=== PATIENT | female | born 1965 | race African-American/Black ===

== ENCOUNTER 2022-09-14 14:57 | Outpatient (AMB) | payer OTHER, SELFPAY ==
[2022-09-14 15:02] VITALS: PULSE 66; O2SAT 97; BMI 41.7
--- NOTE | 2022-09-14 15:02 | MHC.OFFVIS ---
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 The patient is a 56 year woman with worsening dyspnea symptoms. The patient states that she was in usual [facility] until at the after developing COVID she started noticing worsening respiratory symptoms. She did have a full cardiac evaluation. We will request those results at this time. In addition to that, the patient did have a pulmonary evaluation including PFTs and CT scan of the chest. Will also request those results. The patient feels like she has been getting worse. She gets short of breath even with mild activities of daily living. She has not responded to the current respiratory regimen. On examination she does have some end-expiratory wheezing on forced exhalation. In doing a brief walking oximetry the patient did desaturate down to about 94% And also had evidence of dyspnea. In addition to the dyspnea the patient also carries a diagnosis of sleep apnea. She has been on CPAP for many years. The therapy has been affecting beneficial. She does follow-up with [facility] Medicine [facility]. [facility] Medical History (Updated 09/16/22 @ 23:38 by Gatito Collins MD) Dyspnea SASHA on CPAP [id number] syndrome Wheezing Social History (Updated 09/14/22 @ 15:07 by NORA Flaherty) Patient Tobacco Use Status: Never used Tobacco Review of Systems Const Denies fever(s) ENT Reports nasal congestion Card Denies chest pain and Reports dyspnea on exertion Resp Reports cough, Reports dyspnea on exertion and Reports wheezing GI Reports no additional complaints Musc Reports no additional complaints Skin/Breast Denies rash Neuro Reports no additional complaints Psych Denies anxiety Al/Lymph Denies lymphadenopathy Aller/Immun Reports wheezing Physical Exam Vital Signs: Last Vital Signs Pulse 66 09/14/22 15:02 Pulse Ox 97 09/14/22 15:02 Oxygen Delivery Method Room Air 09/14/22 15:02 BMI result Body Mass Index 41.7 Const General: comfortable HEENT Head: Yes normocephalic Neck Neck: Yes normal visual inspection and Yes supple Chest Chest palpation & inspection: normal inspection of the chest Resp Effort & Inspection: normal respiratory effort Auscultation: wheezes expiratory wheezes (on force exhalation) and diminished lung sounds Cardio Rate: regular rate Rhythm: regular rhythm Heart sounds: S1 normal heart sound present and S2 normal heart sound present GI Palpation (GI): Soft to palpation Skin General skin exam: no rashes or lesions noted Extrem General: Yes no clubbing, cyanosis or edema Assessment & Plan Assessment & Plan (1) Wheezing: Code(s): R06.2 - Wheezing (2) SASHA on CPAP: Code(s): G47.33 - Obstructive sleep apnea (adult) (pediatric) (3) 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, unspecified (4) Dyspnea: Code(s): R06.00 - Dyspnea, unspecified Qualifiers: Dyspnea type: dyspnea on exertion Qualified Code(s): R06.09 - Other forms of dyspnea Plan Start Symbicort BID PFTs We will request her CT chest We will request her cardiology evaluation F/U 2-3 months Orders: Orders PFT pulmonary function test 09/14/22 R06.00 - Dyspnea, unspecified Medications: New budesonide-formoterol 160-4.5 mcg/actuation (Symbicort) 2 puffs inhalation BID 30 days 10.2 grams 11RF J44.9 - Chronic obstructive pulmonary disease, unspecified Coding Level of Care Code New Pt Level 4 (33039) Diagnoses Wheezing R06.2 SASHA on CPAP G47.33 Nkfr-[id number] syndrome U09.9 Dyspnea R06.09 Dyspnea type: dyspnea on exertion Time Spent (min) 40
== END 2022-09-14 15:35 | disposition home or self-care (01) ==
PROVIDERS: PCP Internal Medicine; Visit Provider Hospitalist
DX: R06.2 Wheezing (principal); G47.33 Obstructive sleep apnea (adult) (pediatric); U09.9 Post COVID-19 condition, unspecified; R06.09 Other forms of dyspnea
CPT/HCPCS: 99204

== ENCOUNTER → 2022-09-14 14:57 | Outpatient (BNVA) | payer OTHER, SELFPAY | PROVIDERS: PCP Internal Medicine; Visit Provider Hospitalist ==

== ENCOUNTER 2022-10-02 07:22 | Outpatient (REF) | payer OTHER, SELFPAY ==
--- NOTE | 2022-10-02 08:01 | PFT_ITS ---
INDICATION: Dyspnea. SPIROMETRY: FEV to FVC of 87% with an FEV1 of 1.91 L, which is 84% predicted, FVC of 2.18 L, which is 76% predicted. No significant response to bronchodilators noted. Maximum voluntary ventilation 78% predicted. LUNG VOLUMES: Total lung capacity 71% predicted with an expiratory reserve volume of 11% predicted. DIFFUSION CAPACITY: DLCO 95% predicted. COMPARISONS: None. INTERPRETATION: No obstructive ventilatory defects. No significant response to bronchodilators noted. There is a decrease in the maximum voluntary ventilation secondary to likely deconditioning, although cannot rule out neuromuscular conditions. The patient does have a restrictive ventilatory defect consistent with mild restrictive lung disease. Impart due to an elevated BMI as the expiratory reserve volume is significantly low. Diffusion capacity is within normal limits. Clinical correlation warranted. MD ELIU Laen/MODL / [id number]
== END 2022-10-02 07:23 | disposition home or self-care (01) ==
LOC: HO.RESP 07:22
PROVIDERS: PCP Internal Medicine; Visit Provider Hospitalist
DX: R06.00 Dyspnea, unspecified (principal)
CPT/HCPCS: 94010; 94727; 94729

== ENCOUNTER → 2022-10-02 08:01 | Outpatient (BNV) | payer OTHER, SELFPAY | PROVIDERS: PCP Internal Medicine; Visit Provider Hospitalist | DX: R06.09 Other forms of dyspnea (principal); G47.33 Obstructive sleep apnea (adult) (pediatric) | CPT/HCPCS: 94060; 94727; 94729 ==

== ENCOUNTER 2022-11-06 08:41 | Outpatient (AMB) | payer OTHER, SELFPAY ==
[2022-11-06 08:47] VITALS: PULSE 84; O2SAT 98; BMI 42.2
--- NOTE | 2022-11-06 08:47 | MHC.OFFVIS ---
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 The patient states that she was in usual [facility] until at the after developing COVID she started noticing worsening respiratory symptoms. She did have a full cardiac evaluation. We will request those results at this time. In addition to that, the patient did have a pulmonary evaluation including PFTs and CT scan of the chest. Will also request those results. The patient feels like she has been getting worse. She gets short of breath even with mild activities of daily living. She has not responded to the current respiratory regimen. On examination she does have some end-expiratory wheezing on forced exhalation. In doing a brief walking oximetry the patient did desaturate down to about 94% And also had evidence of dyspnea. In addition to the dyspnea the patient also carries a diagnosis of sleep apnea. She has been on CPAP for many years. The therapy has been affecting beneficial. She does follow-up with [facility]. 11/06/2022 the patient is here for a pulmonary follow-up visit. Overall the patient is doing better. She still having dyspnea on exertion but overall a little improved. She is responding well to the Symbicort. Sometimes is causing some raspiness of her voice which she does not like. She wishes to have a rescue inhaler that she can use as needed. In addition to that the patient did undergo pulmonary function studies. We did review the results. 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 She also has noted that her pre bronchodilator numbers were actually better than her post. Therefore the some degree of musculoskeletal disease or fatigability of the muscles. The patient does have a scheduled CT scan with her thoracic surgeon regarding her thymus. She denies ever been diagnosed with myasthenia gravis. In addition to this the patient did have recent breast surgery. This was benign mass that was taken care of. 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 Therefore, I do believe that starting pulmonary rehabilitation at this time with very important. [facility] Medical History (Updated 11/06/22 @ 19:47 by Gatito Collins MD) [id number] syndrome SASHA on CPAP Wheezing Dyspnea Social History (Updated 09/14/22 @ 15:07 by NOAR Flaherty) Patient Tobacco Use Status: Never used Tobacco Review of Systems Const Denies fever(s) ENT Reports nasal congestion Card Denies chest pain and Reports dyspnea on exertion Resp Denies cough and Reports dyspnea on exertion GI Reports no additional complaints Musc Reports no additional complaints Skin/Breast Denies rash Neuro Reports no additional complaints Psych Denies anxiety Al/Lymph Denies lymphadenopathy Physical Exam Vital Signs: Last Vital Signs Pulse 84 11/06/22 08:47 Pulse Ox 98 11/06/22 08:47 Oxygen Delivery Method Room Air 11/06/22 08:47 BMI result Body Mass Index 42.2 Const General: comfortable HEENT Head: Yes normocephalic Neck Neck: Yes normal visual inspection and Yes supple Chest Chest palpation & inspection: normal inspection of the chest Resp Effort & Inspection: normal respiratory effort Auscultation: no wheezes and diminished lung sounds Cardio Rate: regular rate Rhythm: regular rhythm Heart sounds: S1 normal heart sound present and S2 normal heart sound present GI Palpation (GI): Soft to palpation Skin General skin exam: no rashes or lesions noted Extrem General: Yes no clubbing, cyanosis or edema Assessment & Plan Assessment & Plan (1) Coix-[id number] syndrome: Code(s): U09.9 - Post COVID-19 condition, unspecified (2) Dyspnea: Code(s): R06.00 - Dyspnea, unspecified Qualifiers: Dyspnea type: dyspnea on exertion Qualified Code(s): R06.09 - Other forms of dyspnea (3) SASHA on CPAP: Code(s): G47.33 - Obstructive sleep apnea (adult) (pediatric) (4) Wheezing: Comment: better Code(s): R06.2 - Wheezing Plan continue Symbicort BID ALFREDO as needed CT chest [facility] Cardiology evaluation pending pulmonary rehab F/U 6 months Orders: Orders Pulmonary Rehab Today U09.9 - Post COVID-19 condition, unspecified Medications: New albuterol sulfate 90 mcg/actuation 2 inhalations inhalation Q6H 30 days PRN 18 grams 12RF shortness of breath or wheezing J44.9 - Chronic obstructive pulmonary disease, unspecified Coding Level of Care Code Est Pt Level 4 (38302) Diagnoses [id number] syndrome U09.9 Dyspnea on exertion R06.09 Dyspnea type: dyspnea on exertion SASHA on CPAP G47.33 Wheezing R06.2 Time Spent (min) 17
== END 2022-11-06 09:13 | disposition home or self-care (01) ==
PROVIDERS: PCP Internal Medicine; Visit Provider Hospitalist
DX: U09.9 Post COVID-19 condition, unspecified (principal); R06.09 Other forms of dyspnea; G47.33 Obstructive sleep apnea (adult) (pediatric); R06.2 Wheezing
CPT/HCPCS: 99214

== ENCOUNTER → 2022-11-06 08:41 | Outpatient (BNVA) | payer OTHER, SELFPAY | PROVIDERS: PCP Internal Medicine; Visit Provider Hospitalist | DX: J44.9 Chronic obstructive pulmonary disease, unspecified (principal); R06.00 Dyspnea, unspecified ==

== ENCOUNTER 2023-01-12 09:13 | Emergency (ER) | payer OTHER, SELFPAY ==
--- NOTE | ~2023-01-12 | XR_ITS ---
EXAMINATION: XR CHEST CLINICAL INFORMATION: Cough, wheezing COMPARISON: None available. TECHNIQUE: 2 views of the chest were obtained. FINDINGS: Clear lungs. No pleural effusion or pneumothorax. Enlarged cardiac silhouette. Mediastinal contours unremarkable. XR/XR chest 2V IMPRESSION: 1. No acute cardiopulmonary abnormality. 2. Enlarged cardiac silhouette may represent cardiomegaly
--- NOTE | ~2023-01-12 | CT_ITS ---
EXAMINATION: CT ANGIOGRAM OF THE CHEST WITH AND WITHOUT CONTRAST (CT PULMONARY ANGIOGRAM FOR PE) CLINICAL INFORMATION: Reason for Exam tachypnea, r/o PE COMPARISON: None available. TECHNIQUE: Prior to contrast administration, noncontrast localization images were obtained. Subsequently, multidetector volumetric imaging was performed from the thoracic inlet to below the diaphragms following the administration of 65 mL Omnipaque 350 intravenous contrast. No contrast reaction reported Sagittal, coronal, and MIP oblique sagittal reformatted images were obtained on the CT workstation, uploaded to PACS, and reviewed. This CT examination was performed using dose optimization techniques as appropriate, variously including the following: *Automated exposure control *Adjustment of mA and/or kV according to patient size (this includes techniques or standardized protocols for targeted exams where dose is matched to indication/reason for exam; i.e. extremities or head) *Use of iterative reconstruction technique Total exam dose-length product 562 mGy-cm FINDINGS: QUALITY OF STUDY/CONTRAST BOLUS: Satisfactory. PULMONARY ARTERIES: No pulmonary emboli. THORACIC AORTA: The ascending aorta measures 3.7 x 3.3 cm. There is pulsation artifact which limits assessment but no discrete dissection is seen. LUNG: Respiratory motion artifact limits assessment. No consolidation. Mild airway wall thickening. No pulmonary edema. PLEURA: No pleural effusion or pneumothorax. MEDIASTINUM: No adenopathy. No pericardial effusion. CORONARY ARTERY CALCIFICATION: None visualized on this study. CHEST WALL/AXILLA: No axillary or internal mammary lymphadenopathy. OSSEOUS STRUCTURES: No acute or suspicious osseous abnormality. UPPER ABDOMEN: Simple density cyst in the upper pole the left kidney. No follow-up imaging is recommended. CT/CT angio chest PE protocol IMPRESSION: Negative for pulmonary embolism.
[2023-01-12 09:18] VITALS: BP 143/81; PULSE 71; RESP 22; TEMP 36.6; O2SAT 97; BMI 42.0
--- NOTE | 2023-01-12 10:00 | PC.NURSE ---
patient a&ox3, speaking in full sentences, when listening to lung sounds pt expiratory coughed while listening to each lobe- rhonchi heard intermittently.
[2023-01-12 10:22] LABS: Influenza A PCR NEGATIVE (Negative); Influenza B PCR NEGATIVE (Negative); Resp Syncy Virus RNA Qual PCR NEGATIVE (Negative); SARS COV2 PCR INHOUSE NEGATIVE (Negative)
--- NOTE | 2023-01-12 11:15 | ED.URI ---
HPI - URI/Sore Throat General Chief Complaint: Upper Respiratory Symptoms Stated Complaint: trouble breathing/ cough Time Seen by Provider: 01/12/23 10:34 Source: patient Mode of arrival: ambulatory Limitations: no limitations History of Present Illness HPI Narrative: 57-year-old female with a history of hypothyroidism, obstructive sleep apnea, post COVID syndrome presents to the ER with complaints of upper respiratory symptoms for 8 days. Patient reports that last Saturday she developed sore throat, runny nose. Saturday she had a fever. The next day she developed cough, wheezing which continued through till Saturday. She spoke to her primary care on Saturday who prescribed her azithromycin. She went to urgent care on who gave her codeine cough medication and a prednisone course. She had continued symptoms and so she had outpatient chest x-ray yesterday which she tells me was normal. She spoke to her primary store loss prevention manager this morning who recommend she come into the ER for continued symptoms of cough, wheezing and shortness of breath. She denies any current fever, chest pain, leg swelling or leg pain. She does have chronic shortness of breath due to post COVID syndrome and uses Breo daily, albuterol p.r.n.. She has been using her albuterol quite frequently this week and ran out of it. Related Data Home Medications Medication Instructions Recorded Confirmed aspirin 81 mg tablet,delayed 81 mg PO DAILY 09/14/22 release cholecalciferol (vitamin D3) 125 125 mcg PO DAILY 09/14/22 mcg (5,000 unit) capsule coenzyme Q10 200 mg capsule 200 mg PO DAILY 09/14/22 cyclosporine 0.05 % eye drops in a drp ophthalmic (eye) ONCE 09/14/22 dropperette (Restasis) diclofenac sodium 75 mg 75 mg PO BID PRN 09/14/22 tablet,delayed release lactobacillus combination no.9 4 4,000 mmu cells PO DAILY 09/14/22 billion cell capsule (Adult 50 Plus Probiotic) melatonin 10 mg capsule 10 mg PO BEDTIME PRN 09/14/22 methimazole 5 mg tablet 5 mg PO DAILY 09/14/22 metoprolol tartrate 25 mg tablet 25 mg PO DAILY 09/14/22 multivitamin 1 tab PO DAILY 09/14/22 nystatin 100,000 unit/gram topical topical BID 09/14/22 powder omeprazole 20 mg capsule,delayed 20 mg PO DAILY 09/14/22 release levothyroxine 50 mcg capsule 50 mcg PO DAILY 11/06/22 Previous Rx's Medication Instructions Recorded budesonide-formoterol HFA 160 2 puff inhalation BID 30 days 09/14/22 mcg-4.5 mcg/actuation aerosol #10.2 grams inhaler (Symbicort) albuterol sulfate 90 mcg/actuation 2 inh inhalation Q6H PRN shortness 11/06/22 aerosol inhaler of breath or wheezing 30 days #18 grams fluticasone furoate 200 1 inh inhalation DAILY 30 days #60 01/06/23 mcg-vilanterol 25 mcg/dose ea inhalation powder (Breo Ellipta) methylprednisolone 4 mg tablets in 4 mg PO DAILY 6 days #21 ea 01/11/23 a dose pack (Medrol (Andrey)) codeine 10 mg-guaifenesin 100 mg/5 5 ml PO Q6H PRN cough #60 mL 01/12/23 mL oral liquid (Virtussin AC) Allergies Allergy/AdvReac Type Severity Reaction Status Date / Time fexofenadine [From Marychuy] Allergy Severe Anaphylaxis Verified 01/12/23 09:22 sulfamethoxazole Allergy Severe Rash Verified 01/12/23 09:22 [From Bactrim] trimethoprim [From Bactrim] Allergy Severe Rash Verified 01/12/23 09:22 Review of Systems Review of Systems: Yes all other systems are reviewed and are negative Constitutional: Constitutional: Reports no additional constitutional complaints, Denies body ache(s), Denies chills, Denies fever(s), Denies headache(s) and Denies weakness Eyes: Eyes: Reports no additional eye complaints and Denies change in vision ENT: Reports system reviewed and no additional complaints, except as documented, Denies dizziness, Denies headache(s), Denies nasal congestion, Denies nasal discharge and Denies neck pain Cardiovascular: Cardiovascular: Reports no additional cardiovascular complaints, Denies chest pain, Denies leg edema and Reports dyspnea Respiratory: Respiratory: Reports no additional respiratory complaints, Reports cough, Reports dyspnea and Reports wheezing Gastrointestinal: Gastrointestinal: Reports no additional gastrointestinal complaints, Denies abdominal pain, Denies diarrhea, Denies nausea and Denies vomiting Genitourinary: Genitourinary: Reports no additional female genitourinary complaints and Denies urinary incontinence Musculoskeletal: Musculoskeletal: Reports no additional musculoskeletal complaints, Denies back pain, Denies arthralgias, Denies joint swelling, Denies neck pain, Denies numbness and Denies tingling Integumentary/Breasts: Skin/Breast: Reports system reviewed and no additional complaints, except as docu and Denies rash Neurologic: Reports system reviewed and no additional complaints, except as documented, Denies Abnormal speech present, Denies dizziness, Denies headache(s), Denies numbness, Denies tingling and Denies weakness Allergic/Immunologic: Allergic/Immunologic: Reports wheezing [facility] Past Medical History Attestation statement: The following information was validated with the patient. Source: old records reviewed and nursing notes reviewed Medical History [id number] syndrome SASHA on CPAP Wheezing Dyspnea Social History Social History (Updated 09/14/22 @ 15:07 by NORA Flaherty) Patient Tobacco Use Status: Never used Tobacco Advance Directives: No Advance Directives Information Provided: No Physical Exam Vital Signs: Vital Signs: Last Vital Signs Temp 98.9 F 01/12/23 12:27 Pulse 87 01/12/23 13:48 Resp 20 01/12/23 13:48 BP 145/80 H 01/12/23 12:27 Pulse Ox 98 01/12/23 13:48 O2 Del Method Room Air 01/12/23 13:48 BMI result Body Mass Index 42.0 Const: General: cooperative, healthy appearing, comfortable and no acute distress Orientation/consciousness: patient oriented x3 Limitations: no limitations HEENT: Head: Yes normal to inspection Ears: hearing grossly normal bilaterally and TM's normal bilaterally General nose exam: Normal external nose present Face and sinus: Yes normal facial exam Mouth: Normal oral and palatal mucosa present Throat: Yes posterior oropharynx normal, Yes tonsils normal and Yes uvula midline Eyes: General: appearance normal, both eyes and all related structures Pupils: Equal, round and reactive pupils present Neck: Neck: Yes normal visual inspection, Yes full ROM, Yes no lymphadenopathy and Yes no meningeal signs Chest: Chest palpation & inspection: normal inspection of the chest Resp: Effort & Inspection: normal respiratory effort Auscultation: wheezes Cardio: Rate: regular rate Rhythm: regular rhythm Peripheral pulses: Peripheral pulses 2+ throughout GI: Inspection: Yes normal to inspection Palpation (GI): Soft to palpation and nontender Auscultation: normal bowel sounds Back/Spine/Pelvis: Thoracic/Lumbar Spine: thoracic and lumbar spine normal to inspection Skin: General skin exam: no rashes or lesions noted Neuro: General: patient oriented x3, no meningeal signs, no focal motor deficits and normal sensation to monofilament Cranial nerves: Yes Equal, round and reactive pupils present Cognition (Neuro): normal cognition Speech: No Abnormal speech present Gait exam (Neuro): Normal gait present Motor exam (neuro): 5/5 motor strength present throughout Extrem: General: Yes normal to inspection, Yes no pedal edema and Yes no calf tenderness Course Course Course Narrative: 1230-Continued wheezing and cough. Will repeat nebulizer/codeine w/ robitussin Reevaluation(s) Reevaluation #1: 1420-tachypnic with minimal exertion with rates 20's. Will obtain CTA to r/o PE after patient discussion and agreement with plan of care Will obtain EKG, troponin Reevaluation #2: CTA negative for PE. likely viral syndrome in combination was patient's long-haul COVID symptoms. patient's saturations are stable. She has have some mild tachypnea with exertion. we did perform an ambulatory oxygen saturation with oxygen saturations greater than 95% with moving around. Patient is on a prednisone course at home as well as azithromycin. I recommended she continue this as well as her albuterol as needed. We will give her some cough suppressants for home. Reviewed worrisome signs and symptoms of when to return to the emergency room. Comfortable plan for discharge home. Medications Administered Discontinued Medications Generic Name Dose Route Start Last Admin Trade Name Ryanq PRN Reason Stop Dose Admin Albuterol Sulfate 2.5 mg/ 5 mg 01/12/23 12:40 01/12/23 13:08 Albuterol Sulfate 2.5 mg INHALE 01/12/23 12:41 5 mg ONCE ONE Administration Albuterol/Ipratropium 3 ml 01/12/23 11:43 01/12/23 11:44 Albuterol/Iprat 2.5/0.5mg 3 Ml Ampul.Neb INHALE 01/12/23 11:44 3 ml ONCE ONE Administration Guaifenesin/Codeine Phosphate 10 ml 01/12/23 12:40 01/12/23 12:46 Guaifen/Codeine Sf 200/20/10ml 10 Ml Liquid PO 01/12/23 12:41 10 ml ONCE ONE Administration Magnesium Sulfate 2 gm in 50 mls @ 25 mls/hr 01/12/23 11:06 01/12/23 11:51 Magnesium Sulfate/H2o IV 01/12/23 13:05 Infused ONCE ONE Infusion Sodium Chloride 1,000 mls @ 999 mls/hr 01/12/23 11:07 01/12/23 13:48 Ns IV 01/12/23 12:07 Infused .Q1H1M STA Infusion Methylprednisolone Sodium Succinate 125 mg 01/12/23 11:06 01/12/23 11:36 Methylprednisolone Sod Succ 125 Mg/2 Ml Vial IVPUSH 01/12/23 11:07 125 mg ONCE ONE Administration Medical Decision Making Medical Decision Making [facility] Narrative: 57-year-old female with a history of hypothyroidism, obstructive sleep apnea, post COVID syndrome presents to the ER with complaints of upper respiratory symptoms for 8 days. Patient reports that last Saturday she developed sore throat, runny nose. Saturday she had a fever. The next day she developed cough, wheezing which continued through till Saturday. She spoke to her primary care on Saturday who prescribed her azithromycin. She went to urgent care on who gave her codeine cough medication and a prednisone course. She had continued symptoms and so she had outpatient chest x-ray yesterday which she tells me was normal. She spoke to her primary store loss prevention manager this morning who recommend she come into the ER for continued symptoms of cough, wheezing and shortness of breath. She denies any current fever, chest pain, leg swelling or leg pain. She does have chronic shortness of breath due to post COVID syndrome and uses Breo daily, albuterol p.r.n.. She has been using her albuterol quite frequently this week and ran out of it. +wheezing throughout Exam otherwise benign will obtain labs, CXR, viral testing Will give nebulizer, solumedrol/magnesium IV Differential Diagnosis Differential Diagnoses: The differential diagnosis associated with the presentation includes viral syndrome, PNA, PE Admission/Observation Consideration of admission/observation: Escalation of care including admission/observation considered No hypoxia or tachypnea requiring supplemental oxygen for further management inpatient Lab Data [facility] Lab Attestation statement: I reviewed the patient's lab results. 01/12/23 11:20 01/12/23 11:19 Labs: Lab Results 01/12/23 01/12/23 01/12/23 Range/Units 09:25 11:19 11:20 WBC 6.3 (4.8-10.8) X10*3/uL RBC 4.92 (4.20-5.50) X10*6/uL Hgb 13.0 (12.0-16.0) g/dl Hct 41.4 (37.0-47.0) % MCV 84.1 (80.0-98.0) fL MCH 26.4 L (27.0-33.0) pg MCHC 31.4 (31.0-35.0) g/dl RDW 14.6 (11.0-16.0) % Plt Count 198 (160-400) X10*3/uL MPV 9.6 (9.4-12.3) fL Immature Gran % (Auto) Cancelled Neut % (Auto) Cancelled Lymph % (Auto) Cancelled [place] % (Auto) Cancelled Eos % (Auto) Cancelled Baso % (Auto) Cancelled Lymph # (Auto) Cancelled [place] # (Auto) Cancelled Eos # (Auto) Cancelled Baso # (Auto) Cancelled Abs Immat Gran (auto) Cancelled Absolute Neuts (auto) Cancelled Absolute Nucleated RBC 0.000 (0.0-0.012) X10*3/uL Nucleated RBC % (auto) 0.0 (0.0-0.2) /100WBC Neutrophils % (Manual) 29 L (45-73) % Band Neutrophils % 0 L (3-5) % Lymphocytes % (Manual) 56 H (20-40) % Atypical Lymphs % (Man) 3 (0-6) % Monocytes % (Manual) 7 (2-11) % Eosinophils % (Manual) 3 (0-4) % Basophils % (Manual) 2 (0-2) % Abs Neuts (Manual) 1.8 L (2.0-8.3) X10*3/uL Lymphocytes # (Manual) 3.5 (1.2-4.9) X10*3/uL Atyp Lymphs # (Manual) 0.2 x10*3/uL Monocytes # (Manual) 0.4 (0.1-1.2) X10*3/uL Eosinophils # (Manual) 0.2 (0.0-0.4) X10*3/uL Basophils # (Manual) 0.1 (0.0-0.2) X10*3/uL Platelet Estimate NORMAL (NORMAL) Plt Morphology Comment NORMAL RBC Morphology NORMAL PT 12.7 (11.1-13.3) SEC INR 1.0 (0.9-1.1) Sodium 143 (135-145) mmol/L Potassium 3.5 (3.3-5.1) mmol/L Chloride 108 (96-108) mmol/L Carbon Dioxide 27 (22-29) mmol/L Anion Gap 12 (12-20) BUN 9 (9-16) mg/dL Creatinine 0.71 (0.5-1.4) mg/dL Estim Creat Clear Calc 129.0 Estimated GFR > 60 Random Glucose 92 (60-115) mg/dL Calcium 9.7 (8.4-10.2) mg/dL Troponin I High Sens < 2.7 (<3.5-17.0) ng/L Influenza Type A (PCR) NEGATIVE (Negative) Influenza Type B (PCR) NEGATIVE (Negative) RSV RNA Qual (PCR) NEGATIVE (Negative) SARS-CoV-2 RNA (RT-PCR) NEGATIVE (Negative) Independent Interpretation I performed an independent interpretation of an: Plain X-Ray and CT Scan Interpretation: I independently reviewed the x-ray/CTA and agree with Radiology report I independetely reviewed the EKG which shows normal sinus rhythm with a rate of 77, normal [place], QRS, normal QT, nonspecific ST changes leads 3 Radiology Impression Discussion of test interpretation with radiology: I have reviewed the radiologist's reading. Radiologist Impression: [address] [address] XRay Report Signed Patient: Sasha Hess MR#: [id number] : 1965 Acct:[id number] Age/Sex: 57 / F ADM Date: 01/12/23 Loc: .ED Attending Dr: Ordering Physician: Brenna Limon NP Date of Service: 01/12/23 Procedure(s): XR chest 2V Accession Number(s): [id number] cc: Victor Hugo Zuniga; Brenna Limon NP~ EXAMINATION: XR CHEST CLINICAL INFORMATION: Cough, wheezing COMPARISON: None available. TECHNIQUE: 2 views of the chest were obtained. FINDINGS: Clear lungs. No pleural effusion or pneumothorax. Enlarged cardiac silhouette. Mediastinal contours unremarkable. XR/XR chest 2V IMPRESSION: 1. No acute cardiopulmonary abnormality. 2. Enlarged cardiac silhouette may represent cardiomegaly [address] [address] [address] Scan Report Signed Patient: Sasha Hess MR#: [id number] : 1965 Acct:[id number] Age/Sex: 57 / F ADM Date: 01/12/23 Loc: .ED Attending Dr: Ordering Physician: Brenna Limon NP Date of Service: 01/12/23 Procedure(s): CT angio chest PE protocol Accession Number(s): [id number] cc: Victor Hugo Zuniga; Brenna Limon NP~ EXAMINATION: CT ANGIOGRAM OF THE CHEST WITH AND WITHOUT CONTRAST (CT PULMONARY ANGIOGRAM FOR PE) CLINICAL INFORMATION: Reason for Exam tachypnea, r/o PE COMPARISON: None available. TECHNIQUE: Prior to contrast administration, noncontrast localization images were obtained. Subsequently, multidetector volumetric imaging was performed from the thoracic inlet to below the diaphragms following the administration of 65 mL Omnipaque 350 intravenous contrast. No contrast reaction reported Sagittal, coronal, and MIP oblique sagittal reformatted images were obtained on the CT workstation, uploaded to PACS, and reviewed. This CT examination was performed using dose optimization techniques as appropriate, variously including the following: *Automated exposure control *Adjustment of mA and/or kV according to patient size (this includes techniques or standardized protocols for targeted exams where dose is matched to indication/reason for exam; i.e. extremities or head) *Use of iterative reconstruction technique Total exam dose-length product 562 mGy-cm FINDINGS: QUALITY OF STUDY/CONTRAST BOLUS: Satisfactory. PULMONARY ARTERIES: No pulmonary emboli. THORACIC AORTA: The ascending aorta measures 3.7 x 3.3 cm. There is pulsation artifact which limits assessment but no discrete dissection is seen. LUNG: Respiratory motion artifact limits assessment. No consolidation. Mild airway wall thickening. No pulmonary edema. PLEURA: No pleural effusion or pneumothorax. MEDIASTINUM: No adenopathy. No pericardial effusion. CORONARY ARTERY CALCIFICATION: None visualized on this study. CHEST WALL/AXILLA: No axillary or internal mammary lymphadenopathy. OSSEOUS STRUCTURES: No acute or suspicious osseous abnormality. UPPER ABDOMEN: Simple density cyst in the upper pole the left kidney. No follow-up imaging is recommended. CT/CT angio chest PE protocol IMPRESSION: Negative for pulmonary embolism. Prescription Management I considered prescription management with: Antibiotic Discharge Plan Discharge Clinical Impression: Bronchitis Patient Disposition: Home, Self-Care Instructions: Acute Bronchitis (ED) Additional Instructions: resume your prednisone tomorrow You may continue your antibiotic Use your albuterol 2 puffs every 4 hours as needed for cough or wheezing Follow-up with primary care doctor as discussed Prescriptions: New codeine-guaifenesin [Virtussin AC] 10-100 mg/5 mL liquid 5 ml PO Q6H PRN (Reason: cough) Qty: 60 0RF No Action fluticasone furoate-vilanterol [Breo Ellipta] 200-25 mcg/dose blister with device 1 inh inhalation DAILY 30 Days Qty: 60 11RF methylprednisolone [Medrol (Andrey)] 4 mg tablets,dose pack 4 mg PO DAILY 6 Days Qty: 21 0RF cyclosporine [Restasis] 0.05 % dropperette ophthalmic (eye) ONCE metoprolol tartrate 25 mg tablet 25 mg PO DAILY diclofenac sodium 75 mg tablet,delayed release (DR/EC) 75 mg PO BID PRN nystatin 100,000 unit/gram powder topical BID aspirin 81 mg tablet,delayed release (DR/EC) 81 mg PO DAILY cholecalciferol (vitamin D3) 125 mcg (5,000 unit) capsule 125 mcg PO DAILY Adult 50 Plus Probiotic 4 billion cell capsule 4,000 mmu cells PO DAILY Rx Instructions: administer with a meal omeprazole 20 mg capsule,delayed release(DR/EC) 20 mg PO DAILY multivitamin Tablet 1 tab PO DAILY coenzyme Q10 200 mg capsule 200 mg PO DAILY melatonin 10 mg capsule 10 mg PO BEDTIME PRN methimazole 5 mg tablet 5 mg PO DAILY budesonide-formoterol [Symbicort] 160-4.5 mcg/actuation HFA aerosol inhaler 2 puff inhalation BID 30 Days Qty: 10.2 11RF levothyroxine 50 mcg capsule 50 mcg PO DAILY albuterol sulfate 90 mcg/actuation HFA aerosol inhaler 2 inh inhalation Q6H PRN (Reason: shortness of breath or wheezing) 30 Days Qty: 18 12RF Referrals: Rodney Michaels MD [Emergency Provider] - 1 week Victor Hugo Zuniga MD [Primary Care Provider] -
--- NOTE | 2023-01-12 11:24 | PC.NURSE ---
20G Iv placed lbs obtained
[2023-01-12 11:25] LABS: Hematocrit 41.4 % (37.0-47.0); Mean Corpuscular HGB Conc 31.4 g/dl (31.0-35.0); Mean Corpuscular Hemoglobin 26.4 pg (27.0-33.0); Mean Corpuscular Volume 84.1 fL (80.0-98.0); Mean Platelet Volume 9.6 fL (9.4-12.3); Platelet Count 198 X10*3/uL (160-400); Red Blood Count 4.92 X10*6/uL (4.20-5.50); Red Cell Distribution Width 14.6 % (11.0-16.0); White Blood Count 6.3 X10*3/uL (4.8-10.8)
[2023-01-12 11:31] LABS: Prothrombin Time 12.7 SEC (11.1-13.3)
[2023-01-12] MEDS: 0.9 % Sodium Chloride 1,000 ML 999 ML IV (11:35)
[2023-01-12] MEDS: Magnesium Sulfate/H2O 2 GM/50 ML PIGGYBACK IV (11:36)
[2023-01-12] MEDS: methylPREDNISolone Sod Succ 125 MG/2 ML VIAL IVPUSH (11:36)
[2023-01-12 11:39] LABS: Anion Gap 12 (12-20); Blood Urea Nitrogen 9 mg/dL (9-16); Calcium 9.7 mg/dL (8.4-10.2); Carbon Dioxide 27 mmol/L (22-29); Chloride 108 mmol/L (96-108); Estimated Glomerular Filt Rate > 60; Glucose Random 92 mg/dL (60-115); Potassium 3.5 mmol/L (3.3-5.1); Sodium 143 mmol/L (135-145)
[2023-01-12] MEDS: Albuterol/Iprat 2.5/0.5MG 3 ML AMPUL.NEB INHALE (11:44)
[2023-01-12 11:46] VITALS: PULSE 59; RESP 16; O2SAT 97
--- NOTE | 2023-01-12 11:47 | PC.NURSE ---
pt moved to [facility] as pt has hx of tachycardia, controlled with medication, pt was changed into hospital attire, and supervisor customer complaint service was applied. NSR on monitor rate 64bpm filter in place as pt has hx of PFO. respiratory as bedside, XR taken
[2023-01-12 11:59] LABS: Atypical Lymph Absolute Manual 0.2 x10*3/uL; Atypical Lymphs Percent Manual 3 % (0-6); Band Neutrophils Percent 0 % (3-5); Basophils Abs Manual 0.1 X10*3/uL (0.0-0.2); Basophils Percent Manual 2 % (0-2); Eosinophils Absolute Manual 0.2 X10*3/uL (0.0-0.4); Eosinophils Percent Manual 3 % (0-4); Lymphocytes Absolute Manual 3.5 X10*3/uL (1.2-4.9); Lymphocytes Percent Manual 56 % (20-40); Monocytes Absolute Manual 0.4 X10*3/uL (0.1-1.2); Monocytes Percent Manual 7 % (2-11); Neutrophils Absolute Manual 1.8 X10*3/uL (2.0-8.3); Neutrophils Percent Manual 29 % (45-73)
[2023-01-12 12:02] LABS: Platelet Estimate NORMAL (NORMAL); Platelet Morphology Comment NORMAL; RBC Morphology NORMAL
[2023-01-12 12:27] VITALS: BP 145/80; PULSE 67; RESP 20; TEMP 37.2; O2SAT 97
--- NOTE | 2023-01-12 12:28 | PC.NURSE ---
patient a&ox3, lungs diminished throughout, sporatic rhonchi and cough with exhailing, pt states she still feels the same despite medications that were administered. 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
--- NOTE | 2023-01-12 12:31 | PC.NURSE ---
after ambulation back from bathroom, patients respiratory rate had increased to 26 her O2 sat remained wnl at 97%, HR was nsr 70s. pt was noted to be dyspnic and speaking in shorter sentences which is a change from her initial ambulation to the bathroom. will notify provider of this as well.
[2023-01-12 12:33] VITALS: PULSE 70; RESP 26; O2SAT 97
[2023-01-12] MEDS: guaiFEN/Codeine SF 200/20/10ML 10 ML LIQUID PO (12:46)
--- NOTE | 2023-01-12 12:46 | PC.NURSE ---
pt medicated for cough per order
--- NOTE | 2023-01-12 12:49 | PC.NURSE ---
respiratory called for updraft
[2023-01-12] MEDS: Albuterol Sulfate 2.5 MG, Albuterol Sulfate (0.083%) 2.5 MG 5 MG INHALE (13:08)
[2023-01-12 13:10] VITALS: PULSE 65; RESP 20; O2SAT 97
[2023-01-12 13:48] VITALS: PULSE 87; RESP 20; O2SAT 98
--- NOTE | 2023-01-12 14:14 | PC.NURSE ---
ambulated with patient [facility] de[facility] sp02 98-95 on RA HR 87-102bpm
--- NOTE | 2023-01-12 14:23 | ECG_ITS ---
Test Reason : SOB Blood Pressure : / mmHG Vent. Rate : 077 BPM Atrial Rate : 077 BPM P-R Int : 158 ms QRS Dur : 100 ms QT Int : 370 ms P-R-T Axes : 043 -19 -33 degrees QTc Int : 418 ms Normal sinus rhythm Moderate voltage criteria for LVH, may be normal variant ( R in aVL , [place] product ) Nonspecific ST and T wave abnormality Abnormal ECG No previous ECGs available Referred By: Brenna Palmer Electronically Signed By:MICKIE CHRISTY MD
[2023-01-12 15:28] LABS: Troponin-I High Sensitivity < 2.7 ng/L (<3.5-17.0)
== END 2023-01-12 17:11 | disposition home or self-care (01) ==
PROVIDERS: Nurse Practitioner Family; Emergency Provider Emergency Medicine; PCP Internal Medicine
DX: J40 Bronchitis, not specified as acute or chronic (principal); Z20.822 Contact with and (suspected) exposure to COVID-19; Z20.828 Contact with and (suspected) exposure to other viral communicable diseases; R06.02 Shortness of breath
CPT/HCPCS: 0241U; 36415; 71046; 71275; 80048; 84484; 85007; 85027; 85610; 93005; 94640; 96361; 96374; 96375; 99284; 99285; J2930; J3475

== ENCOUNTER → 2023-01-12 14:23 | Outpatient (BNV) | payer OTHER, SELFPAY | PROVIDERS: Emergency Provider Emergency Medicine; PCP Internal Medicine; Visit Provider Internal Medicine Cardiovascular Disease | DX: R94.31 Abnormal electrocardiogram [ECG] [EKG] (principal) | CPT/HCPCS: 93010 ==

== ENCOUNTER 2023-01-18 10:17 | Outpatient (AMB) | payer OTHER, SELFPAY ==
[2023-01-18 10:23] VITALS: BP 110/72; PULSE 73; O2SAT 97; BMI 41.9
--- NOTE | 2023-01-18 10:23 | A.OFFVIS_ITS ---
Intake Vital Signs 01/18/23 10:23 Height 5 ft 9 in Weight 284 lb BMI 41.9 BP 110/72 Blood Pressure Location Lt brachial Position Sitting Pulse 73 Pulse Source Pulse Oximeter Pulse Oximetry (%) 97 Oxygen Delivery Method Room Air Intake Visit Reasons: ER follow up Intake Note: pt is here for follow up from ER here at , she is not close to being at her baseline, still coughing and some shortness of breath wit exertion, more breathing in, also saw pcp on Saturday added more prednisone and nebulizer with albuterol. 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 The patient states that she was in usual state health until at the after developing COVID she started noticing worsening respiratory symptoms. She did have a full cardiac evaluation. We will request those results at this time. In addition to that, the patient did have a pulmonary evaluation including PFTs and CT scan of the chest. Will also request those results. The patient feels like she has been getting worse. She gets short of breath even with mild activities of daily living. She has not responded to the current respiratory regimen. On examination she does have some end-expiratory wheezing on forced exhalation. In doing a brief walking oximetry the patient did desaturate down to about 94% And also had evidence of dyspnea. In addition to the dyspnea the patient also carries a diagnosis of sleep apnea. She has been on CPAP for many years. The therapy has been affecting beneficial. She does follow-up with [facility]. 11/06/2022 the patient is here for a pulm onary follow-up visit. Overall the patient is doing better. She still having dyspnea on exertion but overall a little improved. She is responding well to the Symbicort. Sometimes is causing some raspiness of her voice which she does not like. She wishes to have a rescue inhaler that she can use as needed. In addition to that the patient did undergo pulmonary function studies. We did review the results. 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 She also has noted that her pre bronchodilator numbers were actually better than her post. Therefore the some degree of musculoskeletal disease or fatigability of the muscles. The patient does have a scheduled CT scan with her thoracic surgeon regarding her thymus. She denies ever been diagnosed with myasthenia gravis. In addition to this the patient did have recent breast surgery. This was benign mass that was taken care of. 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 Therefore, I do believe that starting pulmonary rehabilitation at this time with very important. 01/18/2023 the patient is here for a sick visit. Apparently she was exposed to sick contacts sometime Thanksgiving. After she developed fever and worsening cough. Subsequently after that her asthma became very active with having significant chest tightness and wheezing. She went to an urgent care and was given prednisone. She was also given a Z-Andrey. The patient is no better and she did follow-up with primary care doctor also provide her additional steroids. Ultimately the patient still not improve and she decided to come into the ER. In the ER the patient did have blood work in addition to swap. Negative for RSV. COVID and flow. Although this is about a week after symptoms started so the therefore explained to her that is less likely to become positive at this point. The patient had a CTA as well which I personally reviewed. No evidence of any active pulmonary disease. The airways look intact. Some mosaic pattern suggesting air trapping. She also has an incidental finding of a simple says some left kidney. In the office she did have significant coughing nonproductive although at times it can be productive for her with yellowish phlegm. She was given 2 DuoNeb treatments any improved her wheezing and her cough significantly. The patient will start a course of doxycycline. She will complete the prednisone and she will also switch her Breo over to breztri. Apparently she had responded well to the Symbicort but then because of insurance issues with switched over to Breo and she does not find Breo working well for her. She also is irritated by the powder. [facility] Medical History (Updated 01/18/23 @ 13:00 by Gatito Collins MD) Asthma [id number] syndrome SASHA on CPAP Wheezing Dyspnea Social History Patient Tobacco Use Status: Never used Tobacco Review of Systems Const Reports difficulty sleeping, Denies fever(s) and Reports malaise ENT Reports nasal congestion Card Denies chest pain and Reports dyspnea on exertion Resp Reports chest congestion, Reports cough, Reports dyspnea on exertion and Reports wheezing GI Reports no additional complaints Musc Reports no additional complaints Skin/Breast Denies rash Neuro Reports no additional complaints Psych Denies anxiety Al/Lymph Denies lymphadenopathy Aller/Immun Reports wheezing Physical Exam Vital Signs: Last Vital Signs Pulse 73 01/18/23 10:23 BP 110/72 01/18/23 10:23 Pulse Ox 97 01/18/23 10:23 Oxygen Delivery Method Room Air 01/18/23 10:23 BMI result Body Mass Index 41.9 Const General: comfortable HEENT Head: Yes normocephalic Neck Neck: Yes normal visual inspection and Yes supple Chest Chest palpation & inspection: normal inspection of the chest Resp Effort & Inspection: normal respiratory effort, Actively coughing Quality: actively coughing and prolonged expiratory phase Auscultation: no rales, no rhonchi, wheezes and diminished lung sounds Cardio Rate: regular rate Rhythm: regular rhythm Heart sounds: S1 normal heart sound present and S2 normal heart sound present GI Palpation (GI): Soft to palpation Skin General skin exam: no rashes or lesions noted Extrem General: Yes no clubbing, cyanosis or edema Assessment & Plan Assessment & Plan (1) [id number] syndrome: Code(s): U09.9 - Post COVID-19 condition, unspecified (2) Dyspnea: Code(s): R06.00 - Dyspnea, unspecified Qualifiers: Dyspnea type: dyspnea on exertion Qualified Code(s): R06.09 - Other forms of dyspnea (3) SASHA on CPAP: Code(s): G47.33 - Obstructive sleep apnea (adult) (pediatric) (4) Wheezing: Comment: better Code(s): R06.2 - Wheezing (5) Asthma: Code(s): J45.909 - Unspecified asthma, uncomplicated Qualifiers: Asthma severity: moderate Asthma persistence: persistent Asthma complication type: with acute exacerbation Qualified Code(s): J45.41 - Moderate persistent asthma with (acute) exacerbation Plan stop Symbicort BID/breo start Breztri BID ALFREDO as needed start Doxycycline continue nebulizer 2-4 times a day prednisone taper pulmonary rehab F/U 2-3 weeks Medications: New butfqhmeps-xyqsxlzq-zhvpktjtzb 160-9-4.8 mcg/actuation (Breztri Aerosphere) 2 inhalations inhalation BID 10.7 grams 5RF doxycycline hyclate 100 mg PO BID 10 days 20 caps 0RF Coding Level of Care Code Est Pt Level 4 (64125) Diagnoses [id number] syndrome U09.9 Dyspnea on exertion R06.09 Dyspnea type: dyspnea on exertion SASHA on CPAP G47.33 Wheezing R06.2 Moderate persistent asthma with acute exacerbation J45.41 Asthma severity: moderate Asthma persistence: persistent Asthma complication type: with acute exacerbation Time Spent (min) 16
== END 2023-01-18 11:00 | disposition home or self-care (01) ==
PROVIDERS: PCP Internal Medicine; Visit Provider Hospitalist
DX: U09.9 Post COVID-19 condition, unspecified (principal); R06.09 Other forms of dyspnea; G47.33 Obstructive sleep apnea (adult) (pediatric); R06.2 Wheezing; J45.41 Moderate persistent asthma with (acute) exacerbation
CPT/HCPCS: 99214

== ENCOUNTER → 2023-01-18 10:17 | Outpatient (BNVA) | payer OTHER, SELFPAY | PROVIDERS: PCP Internal Medicine; Visit Provider Hospitalist | DX: U09.9 Post COVID-19 condition, unspecified (principal); R06.09 Other forms of dyspnea; J45.41 Moderate persistent asthma with (acute) exacerbation; G47.33 Obstructive sleep apnea (adult) (pediatric) ==

== ENCOUNTER 2023-02-06 09:37 | Outpatient (AMB) | payer OTHER, SELFPAY ==
[2023-02-06 09:41] VITALS: PULSE 72; O2SAT 96; BMI 42.1
--- NOTE | 2023-02-06 09:41 | MHC.OFFVIS ---
Intake Vital Signs 02/06/23 09:41 Height 5 ft 9 in Weight 285 lb BMI 42.1 Pulse 72 Pulse Source Pulse Oximeter Pulse Oximetry (%) 96 Oxygen Delivery Method Room Air Intake Visit Reasons: ER follow up Medical Insurance Coding Specialist Required: No Allergies fexofenadine [From Marychuy] Allergy (Severe, Verified 02/06/23 09:42) Anaphylaxis sulfamethoxazole [From Bactrim] Allergy (Severe, Verified 02/06/23 09:42) Rash trimethoprim [From Bactrim] Allergy (Severe, Verified 02/06/23 09:42) Rash HPI HPI Comments History of Present Illness Details The patient is a 57 year woman with worsening dyspnea symptoms. The patient states that she was in usual state health until at the after developing COVID she started noticing worsening respiratory symptoms. She did have a full cardiac evaluation. We will request those results at this time. In addition to that, the patient did have a pulmonary evaluation including PFTs and CT scan of the chest. Will also request those results. The patient feels like she has been getting worse. She gets short of breath even with mild activities of daily living. She has not responded to the current respiratory regimen. On examination she does have some end-expiratory wheezing on forced exhalation. In doing a brief walking oximetry the patient did desaturate down to about 94% And also had evidence of dyspnea. In addition to the dyspnea the patient also carries a diagnosis of sleep apnea. She has been on CPAP for many years. The therapy has been affecting beneficial. She does follow-up with [facility]. 11/06/2022 the patient is here for a pulmonary follow-up visit. Overall the patient is doing better. She still having dyspnea on exertion but overall a little improved. She is responding well to the Symbicort. Sometimes is causing some raspiness of her voice which she does not like. She wishes to have a rescue inhaler that she can use as needed. In addition to that the patient did undergo pulmonary function studies. We did review the results. 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 She also has noted that her pre bronchodilator numbers were actually better than her post. Therefore the some degree of musculoskeletal disease or fatigability of the muscles. The patient does have a scheduled CT scan with her thoracic surgeon regarding her thymus. She denies ever been diagnosed with myasthenia gravis. In addition to this the patient did have recent breast surgery. This was benign mass that was taken care of. 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 Therefore, I do believe that starting pulmonary rehabilitation at this time with very important. 01/18/2023 the patient is here for a sick visit. Apparently she was exposed to sick contacts sometime Thanksgiving. After she developed fever and worsening cough. Subsequently after that her asthma became very active with having significant chest tightness and wheezing. She went to an urgent care and was given prednisone. She was also given a Z-Andrey. The patient is no better and she did follow-up with primary care doctor also provide her additional steroids. Ultimately the patient still not improve and she decided to come into the ER. In the ER the patient did have blood work in addition to swap. Negative for RSV. COVID and flow. Although this is about a week after symptoms started so the therefore explained to her that is less likely to become positive at this point. The patient had a CTA as well which I personally reviewed. No evidence of any active pulmonary disease. The airways look intact. Some mosaic pattern suggesting air trapping. She also has an incidental finding of a simple says some left kidney. In the office she did have significant coughing nonproductive although at times it can be productive for her with yellowish phlegm. She was given 2 DuoNeb treatments any improved her wheezing and her cough significantly. The patient will start a course of doxycycline. She will complete the prednisone and she will also switch her Breo over to breztri. Apparently she had responded well to the Symbicort but then because of insurance issues with switched over to Breo and she does not find Breo working well for her. She also is irritated by the powder. 02/06/2023 the patient is finally feeling better. She completed the antibiotics and also had been using nebulizer several times a day. She did respond better to the DuoNeb as opposed to the albuterol. Denied any adverse effects from that. She did not require the additional prednisone which is reassuring. She is back to her baseline. She is using the Breztri inhaler. She has noticing a little hoarseness. Since she is doing better she can decrease the amount of the medication to 1 puff twice a day to see if this improves her hoarseness. The patient is ready to go back to pulmonary rehabilitation. In the office we did fill out her FMLA papers and also provide her with a letter to go back to pulmonary rehabilitation without any restrictions. [facility] Medical History (Updated 02/06/23 @ 17:19 by Gatito Collins MD) Asthma Lwac-[id number]-48 syndrome SASHA on CPAP Wheezing Dyspnea Social History Patient Tobacco Use Status: Never used Tobacco Review of Systems Const Denies difficulty sleeping, Denies fever(s) and Denies malaise ENT Reports hoarseness and Reports nasal congestion Card Denies chest pain and Denies dyspnea on exertion Resp Denies chest congestion, Reports cough, Denies dyspnea on exertion and Denies wheezing GI Reports no additional complaints Musc Reports no additional complaints Skin/Breast Denies rash Neuro Reports no additional complaints Psych Denies anxiety Al/Lymph Denies lymphadenopathy Aller/Immun Denies wheezing Physical Exam Vital Signs: Last Vital Signs Pulse 72 02/06/23 09:41 Pulse Ox 96 02/06/23 09:41 Oxygen Delivery Method Room Air 02/06/23 09:41 BMI result Body Mass Index 42.1 Const General: comfortable HEENT Head: Yes normocephalic Neck Neck: Yes normal visual inspection and Yes supple Chest Chest palpation & inspection: normal inspection of the chest Resp Effort & Inspection: normal respiratory effort, no cough and No prolonged expiratory phase Auscultation: clear to auscultation bilaterally, no rales, no rhonchi and no wheezes Cardio Rate: regular rate Rhythm: regular rhythm Heart sounds: S1 normal heart sound present and S2 normal heart sound present GI Palpation (GI): Soft to palpation Skin General skin exam: no rashes or lesions noted Extrem General: Yes no clubbing, cyanosis or edema Assessment & Plan Assessment & Plan (1) Yqyh-[id number]-10 syndrome: Code(s): U09.9 - Post COVID-19 condition, unspecified (2) Dyspnea: Code(s): R06.00 - Dyspnea, unspecified Qualifiers: Dyspnea type: dyspnea on exertion Qualified Code(s): R06.09 - Other forms of dyspnea (3) SASHA on CPAP: Code(s): G47.33 - Obstructive sleep apnea (adult) (pediatric) (4) Asthma: Code(s): J45.909 - Unspecified asthma, uncomplicated Qualifiers: Asthma complication type: uncomplicated Asthma persistence: persistent Asthma severity: moderate Qualified Code(s): J45.40 - Moderate persistent asthma, uncomplicated Plan continue Breztri BID, ok to decrease 1 puff BID ALFREDO as needed continue nebulizer 2-4 times a day as needed ok to return pulmonary rehab F/U 4-6 months Coding Level of Care Code Est Pt Level 4 (35960) Diagnoses Jgzi-ZULWT-58 syndrome U09.9 Dyspnea on exertion R06.09 Dyspnea type: dyspnea on exertion SASHA on CPAP G47.33 Moderate persistent asthma without complication J45.40 Asthma complication type: uncomplicated Asthma persistence: persistent Asthma severity: moderate Time Spent (min) 16
== END 2023-02-06 10:07 | disposition home or self-care (01) ==
PROVIDERS: PCP Internal Medicine; Visit Provider Hospitalist
DX: U09.9 Post COVID-19 condition, unspecified (principal); R06.09 Other forms of dyspnea; G47.33 Obstructive sleep apnea (adult) (pediatric); J45.40 Moderate persistent asthma, uncomplicated
CPT/HCPCS: 99214

== ENCOUNTER → 2023-02-06 09:37 | Outpatient (BNVA) | payer OTHER, SELFPAY | PROVIDERS: PCP Internal Medicine; Visit Provider Hospitalist ==

== ENCOUNTER 2023-05-07 08:20 | Outpatient (AMB) | payer OTHER, SELFPAY ==
--- NOTE | 2023-05-07 08:30 | MHC.OFFVIS ---
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 The patient states that she was in usual state health until at the after developing COVID she started noticing worsening respiratory symptoms. She did have a full cardiac evaluation. We will request those results at this time. In addition to that, the patient did have a pulmonary evaluation including PFTs and CT scan of the chest. Will also request those results. The patient feels like she has been getting worse. She gets short of breath even with mild activities of daily living. She has not responded to the current respiratory regimen. On examination she does have some end-expiratory wheezing on forced exhalation. In doing a brief walking oximetry the patient did desaturate down to about 94% And also had evidence of dyspnea. In addition to the dyspnea the patient also carries a diagnosis of sleep apnea. She has been on CPAP for many years. The therapy has been affecting beneficial. She does follow-up with [facility]. 11/06/2022 the patient is here for a pulmonary follow-up visit. Overall the patient is doing better. She still having dyspnea on exertion but overall a little improved. She is responding well to the Symbicort. Sometimes is causing some raspiness of her voice which she does not like. She wishes to have a rescue inhaler that she can use as needed. In addition to that the patient did undergo pulmonary function studies. We did review the results. 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 She also has noted that her pre bronchodilator numbers were actually better than her post. Therefore the some degree of musculoskeletal disease or fatigability of the muscles. The patient does have a scheduled CT scan with her thoracic surgeon regarding her thymus. She denies ever been diagnosed with myasthenia gravis. In addition to this the patient did have recent breast surgery. This was benign mass that was taken care of. 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 Therefore, I do believe that starting pulmonary rehabilitation at this time with very important. 01/18/2023 the patient is here for a sick visit. Apparently she was exposed to sick contacts sometime Thanksgiving. After she developed fever and worsening cough. Subsequently after that her asthma became very active with having significant chest tightness and wheezing. She went to an urgent care and was given prednisone. She was also given a Z-Andrey. The patient is no better and she did follow-up with primary care doctor also provide her additional steroids. Ultimately the patient still not improve and she decided to come into the ER. In the ER the patient did have blood work in addition to swap. Negative for RSV. COVID and flow. Although this is about a week after symptoms started so the therefore explained to her that is less likely to become positive at this point. The patient had a CTA as well which I personally reviewed. No evidence of any active pulmonary disease. The airways look intact. Some mosaic pattern suggesting air trapping. She also has an incidental finding of a simple says some left kidney. In the office she did have significant coughing nonproductive although at times it can be productive for her with yellowish phlegm. She was given 2 DuoNeb treatments any improved her wheezing and her cough significantly. The patient will start a course of doxycycline. She will complete the prednisone and she will also switch her Breo over to breztri. Apparently she had responded well to the Symbicort but then because of insurance issues with switched over to Breo and she does not find Breo working well for her. She also is irritated by the powder. 02/06/2023 the patient is finally feeling better. She completed the antibiotics and also had been using nebulizer several times a day. She did respond better to the DuoNeb as opposed to the albuterol. Denied any adverse effects from that. She did not require the additional prednisone which is reassuring. She is back to her baseline. She is using the Breztri inhaler. She has noticing a little hoarseness. Since she is doing better she can decrease the amount of the medication to 1 puff twice a day to see if this improves her hoarseness. The patient is ready to go back to pulmonary rehabilitation. In the office we did fill out her FMLA papers and also provide her with a letter to go back to pulmonary rehabilitation without any restrictions. 05/07/2023 the patient is here for pulmonary follow-up visit. The patient overall has been feeling better. She was able to wean off the maintenance inhaler. Although then she was working on her home and she was exposed to fumes and the patient had 2 restarted. The patient went back to pulmonary rehabilitation. There was an issue with delay in therefore she was not able to go back. Now she is back and she is going to finish program. She also has a CPAP. The CPAP therapy has been affecting beneficial. Was adjusted during the last visit. The therapy has been affecting beneficial. She does use it for more than 4 hours a night. She does get supplies from [facility]. She uses the nasal pillows. Will go ahead and send for supplies and request access to her machine to adjusted if needed. [facility] Medical History (Updated 02/06/23 @ 17:19 by Gatito Collins MD) Asthma [id number]-85 syndrome SASHA on CPAP Wheezing Dyspnea Social History Patient Tobacco Use Status: Never used Tobacco Review of Systems Const Denies difficulty sleeping, Denies fever(s) and Denies malaise ENT Reports nasal congestion Card Denies chest pain and Reports dyspnea on exertion Resp Denies chest congestion, Reports cough, Reports dyspnea on exertion and Denies wheezing GI Reports no additional complaints Musc Reports no additional complaints Skin/Breast Denies rash Neuro Reports no additional complaints Psych Denies anxiety Al/Lymph Denies lymphadenopathy Aller/Immun Denies wheezing Physical Exam Vital Signs: Last Vital Signs Pulse 80 05/07/23 08:31 Pulse Ox 98 05/07/23 08:31 Oxygen Delivery Method Room Air 05/07/23 08:31 BMI result Body Mass Index 42.0 Const General: comfortable HEENT Head: Yes normocephalic Neck Neck: Yes normal visual inspection and Yes supple Chest Chest palpation & inspection: normal inspection of the chest Resp Effort & Inspection: normal respiratory effort, no cough and No prolonged expiratory phase Auscultation: clear to auscultation bilaterally, no rales, no rhonchi and no wheezes Cardio Rate: regular rate Rhythm: regular rhythm Heart sounds: S1 normal heart sound present and S2 normal heart sound present GI Palpation (GI): Soft to palpation Skin General skin exam: no rashes or lesions noted Extrem General: Yes no clubbing, cyanosis or edema Assessment & Plan Assessment & Plan (1) Bfyf-[id number]-20 syndrome: Code(s): U09.9 - Post COVID-19 condition, unspecified (2) Dyspnea: Code(s): R06.00 - Dyspnea, unspecified Qualifiers: Dyspnea type: dyspnea on exertion Qualified Code(s): R06.09 - Other forms of dyspnea (3) SASHA on CPAP: Code(s): G47.33 - Obstructive sleep apnea (adult) (pediatric) (4) Asthma: Code(s): J45.909 - Unspecified asthma, uncomplicated Qualifiers: Asthma complication type: uncomplicated Asthma persistence: persistent Asthma severity: moderate Qualified Code(s): J45.40 - Moderate persistent asthma, uncomplicated Plan continue Breztri BID, ok to decrease 1 puff BID ALFREDO as needed continue nebulizer 2-4 times a day as needed Cont APAP, [facility] mask complete pulmonary rehab F/U 6-8 months Coding Level of Care Code Est Pt Level 4 (37031) Diagnoses Fadc-[id number]-84 syndrome U09.9 Dyspnea on exertion R06.09 Dyspnea type: dyspnea on exertion SASHA on CPAP G47.33 Moderate persistent asthma without complication J45.40 Asthma complication type: uncomplicated Asthma persistence: persistent Asthma severity: moderate Time Spent (min) 17
[2023-05-07 08:31] VITALS: PULSE 80; O2SAT 98; BMI 42.0
== END 2023-05-07 08:55 | disposition home or self-care (01) ==
PROVIDERS: PCP Internal Medicine; Visit Provider Hospitalist
DX: U09.9 Post COVID-19 condition, unspecified (principal); R06.09 Other forms of dyspnea; G47.33 Obstructive sleep apnea (adult) (pediatric); J45.40 Moderate persistent asthma, uncomplicated
CPT/HCPCS: 99214

== ENCOUNTER → 2023-05-07 08:20 | Outpatient (BNVA) | payer OTHER, SELFPAY | PROVIDERS: PCP Internal Medicine; Visit Provider Hospitalist | DX: J44.9 Chronic obstructive pulmonary disease, unspecified (principal); R06.00 Dyspnea, unspecified; U09.9 Post COVID-19 condition, unspecified ==

== ENCOUNTER 2023-12-24 08:13 | Outpatient (AMB) | payer OTHER, SELFPAY ==
[2023-12-24 08:20] VITALS: BP 128/64; PULSE 69; O2SAT 99; BMI 42.0
--- NOTE | 2023-12-24 08:20 | MHC.OFFVIS ---
Vital Signs 12/24/23 08:20 Height 5 ft 9 in Weight 284 lb 6.341 oz BMI 42.0 BP 128/64 Pulse 69 Pulse Source Pulse Oximeter Pulse Oximetry (%) 99 Oxygen Delivery Method Room Air Intake Visit Reasons: Dyspnea Submarine Worker Required: No Docket Specialist: Docket Specialist offered & declined Accompanied by: Self / Same As Patient Allergies fexofenadine [From Marychuy] Allergy (Severe, Verified 12/24/23 08:26) Anaphylaxis sulfamethoxazole [From Bactrim] Allergy (Severe, Verified 12/24/23 08:26) Rash trimethoprim [From Bactrim] Allergy (Severe, Verified 12/24/23 08:26) Rash Medication List - Last Reconciled 12/24/23 by Lakisha Dillon LPN albuterol sulfate 90 mcg/actuation 2 inhalations inhalation Q6H PRN 30 days albuterol sulfate 2.5 mg inhalation Q6H aspirin 81 mg PO DAILY yglmucfgtg-abnrzvtf-pckirkrbec 160-9-4.8 mcg/actuation (Breztri Aerosphere) 2 inhalations inhalation BID cholecalciferol (vitamin D3) 125 mcg PO DAILY coenzyme Q10 200 mg PO DAILY cyclosporine 0.05% (Restasis) drps ophthalmic (eye) ONCE diclofenac sodium 75 mg PO BID PRN fluticasone furoate-vilanterol 200-25 mcg/dose (Breo Ellipta) 1 inh inhalation DAILY 30 days ipratropium-albuterol 0.5 mg-3 mg(2.5 mg base)/3 mL 3 mL inhalation BID 90 days lactobacillus combination no.9 (Adult 50 Plus Probiotic) 4,000 mmu cells PO DAILY levothyroxine 50 mcg PO DAILY melatonin 10 mg PO BEDTIME PRN metoprolol tartrate 25 mg PO DAILY multivitamin 1 tab PO DAILY nebulizers As directed nystatin topical BID omeprazole 20 mg PO DAILY pravastatin 20 mg PO DAILY HPI Comments Details: The patient is a 58 year woman with worsening dyspnea symptoms. The patient states that she was in usual state health until at the after developing COVID she started noticing worsening respiratory symptoms. She did have a full cardiac evaluation. We will request those results at this time. In addition to that, the patient did have a pulmonary evaluation including PFTs and CT scan of the chest. Will also request those results. The patient feels like she has been getting worse. She gets short of breath even with mild activities of daily living. She has not responded to the current respiratory regimen. On examination she does have some end-expiratory wheezing on forced exhalation. In doing a brief walking oximetry the patient did desaturate down to about 94% And also had evidence of dyspnea. In addition to the dyspnea the patient also carries a diagnosis of sleep apnea. She has been on CPAP for many years. The therapy has been affecting beneficial. She does follow-up with [facility]. 11/06/2022 the patient is here for a pulmonary follow-up visit. Overall the patient is doing better. She still having dyspnea on exertion but overall a little improved. She is responding well to the Symbicort. Sometimes is causing some raspiness of her voice which she does not like. She wishes to have a rescue inhaler that she can use as needed. In addition to that the patient did undergo pulmonary function studies. We did review the results. 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 She also has noted that her pre bronchodilator numbers were actually better than her post. Therefore the some degree of musculoskeletal disease or fatigability of the muscles. The patient does have a scheduled CT scan with her thoracic surgeon regarding her thymus. She denies ever been diagnosed with myasthenia gravis. In addition to this the patient did have recent breast surgery. This was benign mass that was taken care of. 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 Therefore, I do believe that starting pulmonary rehabilitation at this time with very important. 01/18/2023 the patient is here for a sick visit. Apparently she was exposed to sick contacts sometime Thanksgiving. After she developed fever and worsening cough. Subsequently after that her asthma became very active with having significant chest tightness and wheezing. She went to an urgent care and was given prednisone. She was also given a Z-Andrey. The patient is no better and she did follow-up with primary care doctor also provide her additional steroids. Ultimately the patient still not improve and she decided to come into the ER. In the ER the patient did have blood work in addition to swap. Negative for RSV. COVID and flow. Although this is about a week after symptoms started so the therefore explained to her that is less likely to become positive at this point. The patient had a CTA as well which I personally reviewed. No evidence of any active pulmonary disease. The airways look intact. Some mosaic pattern suggesting air trapping. She also has an incidental finding of a simple says some left kidney. In the office she did have significant coughing nonproductive although at times it can be productive for her with yellowish phlegm. She was given 2 DuoNeb treatments any improved her wheezing and her cough significantly. The patient will start a course of doxycycline. She will complete the prednisone and she will also switch her Breo over to breztri. Apparently she had responded well to the Symbicort but then because of insurance issues with switched over to Breo and she does not find Breo working well for her. She also is irritated by the powder. 02/06/2023 the patient is finally feeling better. She completed the antibiotics and also had been using nebulizer several times a day. She did respond better to the DuoNeb as opposed to the albuterol. Denied any adverse effects from that. She did not require the additional prednisone which is reassuring. She is back to her baseline. She is using the Breztri inhaler. She has noticing a little hoarseness. Since she is doing better she can decrease the amount of the medication to 1 puff twice a day to see if this improves her hoarseness. The patient is ready to go back to pulmonary rehabilitation. In the office we did fill out her [place] papers and also provide her with a letter to go back to pulmonary rehabilitation without any restrictions. 05/07/2023 the patient is here for pulmonary follow-up visit. The patient overall has been feeling better. She was able to wean off the maintenance inhaler. Although then she was working on her home and she was exposed to fumes and the patient had 2 restarted. The patient went back to pulmonary rehabilitation. There was an issue with delay in therefore she was not able to go back. Now she is back and she is going to finish program. She also has a CPAP. The CPAP therapy has been affecting beneficial. Was adjusted during the last visit. The therapy has been affecting beneficial. She does use it for more than 4 hours a night. [facility] She uses the nasal pillows. Will go ahead and send for supplies and request access to her machine to adjusted if needed. 12/24/2023 the patient is here for a pulmonary follow-up visit. Overall she is doing well. She continues uses CPAP every night. APAP 7-11. The pressure seemed to be good. AHI is down to 1. She does use it for more than 4 hours a night. He has been very affecting beneficial. She did follow-up with cardiology and cardiac issues are stable which is reassuring. She is hoping to lose weight and hopefully get off the CPAP. I did encourage her to do so but sometimes is not so much about the weight but about the anatomy of the neck. Will repeat her sleep study when she gets to her ideal weight. In the meantime she has been having issues with some wheezing and some shortness of breath and chest tightness. Neae-yc-ivoccfng severity. The patient has stopped using the rescue inhaler. She can go ahead and restarted use it as needed. We did review her CT scan of the chest that she had in 01/30/2023. It was a CTA. I did review the images with her. She does have a 3 mm pulmonary nodule that is very obvious on the left hemithorax. Unfortunately was not read on the CT scan report. Will go ahead and assess to see if she has any CT scans from [facility] so we can compare. If the nodule is new or if we do not have any comparisons then will have to repeat a new CT scan sometime in the spring. [facility] Medical History (Updated 02/06/23 @ 17:19 by Gatito Collins MD) Asthma [id number] syndrome SASHA on CPAP Wheezing Dyspnea Social History (Updated 12/24/23 @ 08:29 by Lakisha Dillon LPN) Patient Tobacco Use Status: Never used Tobacco Review of Systems Const Denies difficulty sleeping, Denies fever(s) and Denies malaise ENT Reports nasal congestion Card Denies chest pain and Reports dyspnea on exertion Resp Denies chest congestion, Reports cough, Reports dyspnea on exertion and Denies wheezing GI Reports no additional complaints Musc Reports no additional complaints Skin/Breast Denies rash Neuro Reports no additional complaints Psych Denies anxiety Al/Lymph Denies lymphadenopathy Aller/Immun Denies wheezing Physical Exam Vital Signs: Last Vital Signs Pulse 69 12/24/23 08:20 BP 128/64 12/24/23 08:20 Pulse Ox 99 12/24/23 08:20 Oxygen Delivery Method Room Air 12/24/23 08:20 BMI result Body Mass Index 42.0 Const General: comfortable HEENT Head: Yes normocephalic Neck Neck: Yes normal visual inspection and Yes supple Chest Chest palpation & inspection: normal inspection of the chest Resp Effort & Inspection: normal respiratory effort, no cough and No prolonged expiratory phase Auscultation: no rales, no rhonchi, no wheezes and diminished lung sounds Cardio Rate: regular rate Rhythm: regular rhythm Heart sounds: S1 normal heart sound present and S2 normal heart sound present GI Palpation (GI): Soft to palpation Skin General skin exam: no rashes or lesions noted Extrem General: Yes no clubbing, cyanosis or edema Assessment & Plan Assessment & Plan (1) Dyspnea: Code(s): R06.00 - Dyspnea, unspecified Category: Medical Qualifiers: Dyspnea type: dyspnea on exertion Qualified Code(s): R06.09 - Other forms of dyspnea (2) SASHA on CPAP: Code(s): G47.33 - Obstructive sleep apnea (adult) (pediatric) Category: Medical (3) Asthma: Code(s): J45.909 - Unspecified asthma, uncomplicated Category: Medical Qualifiers: Asthma complication type: uncomplicated Asthma persistence: persistent Asthma severity: moderate Qualified Code(s): J45.40 - Moderate persistent asthma, uncomplicated Plan continue Breztri BID, ok to decrease 1 puff BID ALFREDO as needed continue nebulizer 2-4 times a day as needed Cont APAP 7-11, [facility] P[facility] complete pulmonary rehab F/U 12 months Coding Level of Care Code Est Pt Level 4 (38433) Diagnoses Dyspnea on exertion R06.09 Dyspnea type: dyspnea on exertion SASHA on CPAP G47.33 Moderate persistent asthma without complication J45.40 Asthma complication type: uncomplicated Asthma persistence: persistent Asthma severity: moderate Time Spent (min) 16
== END 2023-12-24 08:48 | disposition home or self-care (01) ==
PROVIDERS: PCP Internal Medicine; Visit Provider Hospitalist
DX: R06.09 Other forms of dyspnea (principal); G47.33 Obstructive sleep apnea (adult) (pediatric); J45.40 Moderate persistent asthma, uncomplicated
CPT/HCPCS: 99214

== ENCOUNTER 2024-05-06 12:53 | Outpatient (REF) | payer OTHER, SELFPAY ==
--- NOTE | ~2024-05-06 | XR_ITS ---
EXAMINATION: XR CHEST CLINICAL INFORMATION: R07.81 - Pleurodynia COMPARISON: January 12, 2023. TECHNIQUE: 2 views of the chest were obtained. FINDINGS: Prominence of the interstitial lung markings. No consolidation pleural effusion or pneumothorax. No hyperinflation. Heart silhouette appears prominent, unchanged. Multilevel thoracic spondylosis. S-shaped curvature of the thoracic spine. Spina bifida at T1 vertebra. XR/XR chest 2V IMPRESSION: Mild interstitial edema versus small airway inflammatory disease. Spina bifida/unfused posterior spinous processes at T1. Electronically signed by: Christ Salcedo MD 05/06/2024 03:30 PM EDT
--- OUTSIDE RECORDS SUMMARY | 2024-05-06 15:17 | XMS_ITS | Clinical Summary ---
Author Organization [facility] Address [address] [place] [id number] Care Team Providers Care Tack Coverer Name Role Phone Victor Hugo Zuniga MD Primary Care Provider [phone] Allergies Active Allergy Reactions Criticality Noted Date Comments Fexofenadine 03/22/2017 Sulfamethoxazole-Trimethoprim 2017 Medications Medication Sig Dispensed Refills Start Date End Date Status aspirin EC 81 MG tablet Take 1 tablet (81 mg total) by mouth daily. 0 Active omeprazole (PRILOSEC) 40 MG capsule Take 1 capsule (40 mg total) by mouth daily. 0 Active cholecalciferol (VITAMIN D3) 1000 UNITS tablet Take 2 tablets (2,000 Units total) by mouth daily. 0 Active Probiotic Product (PROBIOTIC PO) Take by mouth. 0 Active Multiple Vitamin (MULTI VITAMIN DAILY PO) Take by mouth. 0 Active metoprolol succinate (TOPROL-XL) 24 hr tablet 25 mg Take 0.5 tablets (12.5 mg total) by mouth daily. 0 Active docusate sodium (COLACE) 100 MG capsule Take 1 capsule (100 mg total) by mouth 2 (two) times a day. 0 Active diclofenac (VOLTAREN) 75 MG EC tablet Take 1 tablet (75 mg total) by mouth 2 (two) times a day. 0 Active Coenzyme Q10 200 MG capsule Take 200 mg by mouth daily. 0 Active levothyroxine (SYNTHROID) tablet 50 mcg Take 1 tablet (50 mcg total) by mouth every morning on an empty stomach. 0 Active budesonide-formotero l (SYMBICORT) 160-4.5 MCG/ACT inhaler Inhale 2 inhalations into the lungs 2 (two) times a day. 0 Active Active Problems Problem Noted Date Diagnosed Date Primary osteoarthritis of left knee 12/26/2020 MGUS (monoclonal gammopathy of unknown significa nce) 12/21/2019 Graves disease 12/21/2019 Thymoma 12/21/2019 Overview: August 2019-- surgery-- Dr Ignacio Family History Medical History Relation Name Comments Kidney failure Father Cancer Mother breast Diabetes Mother Hypertension Mother Relation Name Status Comments Father Mother Alive Social History Tobacco Use Types Packs/Day Years Used Date Smoking Tobacco: Never Smokeless Tobacco: Never Alcohol Use Standard Drinks/Week Comments Yes 0 (1 standard drink = 0.6 oz pur e alcohol) social Sex and Gender Information Value Date Recorded Sex Assigned at Not on file Gender Identity Not on file Sexual Orientation Not on file Job Start Date Occupation Industry Not on file Not on file Not on file Last Filed Vital Signs Vital Sign Reading Time Taken Comments Blood Pressure 115/72 12/26/2022 9:18 AM EST Pulse 73 12/26/2022 9:18 AM EST Temperature 36.8 ??C (98.2 ??F) 12/26/2022 9:18 AM ES T Respiratory Rate - - Oxygen Saturation 95% 12/26/2022 9:18 AM EST Inhaled Oxygen Concentration - - Weight 130.1 kg (286 lb 12.8 oz) 12/26/2022 9:18 AM EST Height 175.3 cm (5' 9 ) 12/26/2021 8:57 AM EST Body Mass Index 42.35 12/26/2021 8:57 AM EST Plan of Treatment Health Maintenance Due Date Last Done Comments Hepatitis B Vaccines (1 of 3 - 3-dose series) 1967 Hepatitis C Screening 1965 Pneumococcal Vaccine (1 of 2 - PCV) 09/17/1973 Depression Screening 1979 Preventative Health Evaluation 09/17/1985 DTap / Tdap / Td (1 - Tdap) 09/17/1986 Shingrix-Zoster Vaccine (1 o f 2) 09/17/1986 Cervical Cancer Screening (Pap Smear) 09/17/1988 Colon Cancer Screening (Colonoscopy) 09/17/2012 Breast Cancer Screening (Mammogram) 09/17/2017 COVID-19 Vaccine (3 - Modern a risk series) 04/02/2020 03/05/2020, 02/06/2020 Influenza Vaccine (#1) 2023 11/06/2017 RSV Ped < 20 months Aged Out No longe r eligible based on patient's age to complete this topic Care Teams Tack Coverer Relationship Specialty Start Date End Date Victor Hugo Zuniga MD PCP - General Internal Medicine 03/07/17
--- OUTSIDE RECORDS SUMMARY | 2024-05-06 15:17 | XMS_ITS | Clinical Summary ---
Author Organization [facility] Address [address] [place] [address] Phone Care Team Providers Care Human Resource Internship Name Role Phone Victor Hugo Zuniga MD Primary Care Provider + [phone] Allergies Active Allergy Reactions Criticality Noted Date Comments Fexofenadine Rash,Swelling High 03/22/2017 Causes shortness of breath Sulfamethoxazole-Trimethop rim Rash 03/22/2017 Medications aspirin 81 mg EC tablet Take 1 tablet (81 mg total) by mouth 1 (one) time each day. Active budesonide-formo teroL (SYMBICORT) 160-4.5 mcg/actuation inhaler Inhale 2 puffs by mouth 2 (two) times a day. Active cholecalciferol (VITAMIN D-3) 25 mcg (1,000 unit) tablet Take 2 tablets (2,000 Units total) by mouth 1 (one) time each day. Active coenzyme Q-10 200 mg capsule Take 1 capsule (200 mg total) by mouth 1 (one) time each day. Active diclofenac (VOLTAREN) 75 mg EC tablet Take 1 tablet (75 mg total) by mouth 2 (two) times a day. Active docusate sodium (COLACE) 100 mg capsule Take 1 capsule (100 mg total) by mouth 2 (two) times a day. Active metoprolol succinate (TOPROL-XL) 25 mg 24 hr tablet Take 0.5 tablets (12.5 mg total) by mouth 1 (one) time each day. Active omeprazole (PriLOSEC) [address] capsule Take 1 capsule (40 mg total) by mouth 1 (one) time each day. Active multivitamin tablet Take by mouth. Active Lactobacillus acidophilus (PROBIOTIC ORAL) Take by mouth. Active budesonide-glyco pyr-formoterol (Breztri Aerosphere) 160-9-4.8 mcg/actuation HFA aerosol inhaler inhaler Inhale by mouth. 11/27/2023 Active Active Problems Problem Noted Date Diagnosed Date Primary osteoarthritis of left knee 12/26/2020 Thymoma 12/21/2019 Overview (10/02/2023): August 2019-- surgery-- Dr Ignacio MGUS (monoclonal gammopathy of unknown significa nce) 12/21/2019 Overview (10/02/2023): IgG kappa monoclonal gammopathy of undetermined significance (MGUS) Follows with Dr. Galo Graves disease 12/21/2019 Surgical History Surgery Date Site/Laterality Comments TONSILLECTOMY 1998 PROCEDURE: HISTORICAL TONSILLECTOMY BREAST LUMPECTOMY 1999 Bilateral PROCEDURE: HISTORICAL BREAST LUMPECTOMY; COMMENT: benign BACK SURGERY 2004 PROCEDURE: HISTORICAL BACK SURGERY; COMMENT: disk injury from work EYE SURGERY 2015 PROCEDURE: HISTORICAL EYE SURGERY; COMMENT: Lasik OTHER SURGICAL HISTORY 08/25/2019 PROCEDURE: WI THORACOSCOPY RESEXN THYMUS UNI/BILATERAL KNEE ARTHROSCOPY W/ MENISCAL REPAIR 2019 Left PROCEDURE: WI ARTHROSCOPY KNEE W/MENISCUS RPR MEDIAL/LATERAL Medical History Medical History Date Comments Rheumatoid arthritis (CMS/HCC) D X:Rheumatoid arthritis (HCC) Family history of breast can cer in first degree relative 09/05/2018 DX:Family history of breast cancer in first degree relative; COMMENT: Mother-50's, maternal aunt-40's, & paternal grandmother-50's; 05/2016 BRCA testing negative; 1999 s/p tresa breast lumpectomy-neg SASHA (obstructive sleep apnea) 06/14/2020 DX :SASHA (obstructive sleep apnea); COMMENT: CPAP machine MGUS (monoclonal gammopathy of unknown significance) 06/14/2020 DX:MGUS (monoclonal gammopat hy of unknown significance); COMMENT: IgG kappa monoclonal gammopathy of undetermined significance (MGUS) Follows with Dr. Clover Johnston disease 06/14/2020 DX:Graves diseas e Family history of cardiovasc ular disease DX:Family history of cardiov ascular disease Hyperlipidemia DX:Hyperlipidemi a Family History Medical History Relation Name Comments Breast cancer Aunt maternal Heart failure Brother 1 Pat Heart failure Brother 2 Hema Breast cancer Mother Heart failure Mother Breast cancer Paternal Grandmother Relation Name Status Comments Aunt maternal Alive Brother 1 Pat Brother 2 Hema Alive Mother Paternal Grandmother Social History Tobacco Use Types Packs/Day Years Used Date Smoking Tobacco: Never Smokeless Tobacco: Former Tobacco Cessation:Counseling Given: Not Answered Alcohol Use Standard Drinks/Week Comments Yes 0 (1 standard drink = 0.6 oz pur e alcohol) Comments Unknown Sex and Gender Information Value Date Recorded Sex Assigned at Female 07/04/2022 11:44 AM EDT Legal Sex Female 1:48 PM EST Gender Identity Female 07/04/2022 11:44 AM EDT Sexual Orientation Straight 07/04/2022 11 :44 AM EDT Obstetrics History Last Filed Vital Signs Vital Sign Reading Time Taken Comments Blood Pressure 120/57 01/23/2024 9:12 AM EST Pulse 72 01/23/2024 9:12 AM EST Temperature 36.9 ??C (98.4 ??F) 01/23/2024 9:12 AM ES T Respiratory Rate - - Oxygen Saturation 97% 01/23/2024 9:12 AM EST Inhaled Oxygen Concentration - - Weight 130 kg (286 lb 9.6 oz) 01/23/2024 9:12 AM EST Height 175.3 cm (5' 9 ) 05/07/2023 3:02 PM EDT Body Mass Index 42.32 05/07/2023 3:02 PM EDT Plan of Treatment Upcoming Encounters Date Type Department Care Team (Late st Contact Info) Description 06/02/2024 11:00 AM EDT Ancillary Procedure [facility] - [address] [place] [id number] 06/15/2024 3:30 PM EDT Office Visit [facility] [address] [facility] [address] [facility] [address] [place] [address] Baldomero Chavez MD [address] [facility] [place] [address] 07/16/2024 8:00 AM EDT Office Visit Breast Care [facility] [address] [facility] [address] [place] [phone] Armand Nascimento MD [address] [facility] [address] [place], [place] [id number] 11/23/2024 9:00 AM EDT Office Visit [facility] Hematology Oncology [address] [place] [address] Tai Magallanes MD [address] [place] [address] Health Maintenance Due Date Last Done Comments Breast Cancer Screening 1965 Hepatitis B Vaccines (1 of 3 - 19+ 3-dose series) 09/17/1986 Cervical Cancer Screening: Pap Smear 09/17/1988 Cholesterol Screening (Lipid Panel) 01/20/2022 Colorectal Cancer Screening: Colonoscopy 01/20/2022 Depression Screening 01/20/2022 HIV Screening 01/20/2022 Hepatitis C Screening 01/20/2022 Social Influencers of Health Screening 01/20/2022 DTaP,Tdap,and Td Vaccines (2 - Td or Tdap) 01/30/2034 01/31/2024 MMR Vaccines Aged Out 04/16/2018 No longer eligi ble based on patient's age to complete this topic Zoster Vaccines Completed 02/15/2021, 10/20/2020 COVID-19 Vaccine Completed 11/24/2023, , 12/01/2021, Additional history exists Influenza Vaccine Completed 11/24/2023, , 12/01/2021, Additional history exists Pneumococcal Vaccine: 50+ Years Completed 01/31/2024 Pneumococcal Vaccine: Pediatrics (0 to 5 Years) and At-Risk Patients (6 to 64 Years) Completed 01/31/2024 HIB Vaccines Aged Out No longer eligi ble based on patient's age to complete this topic HPV Vaccines Aged Out No longer eligi ble based on patient's age to complete this topic Hepatitis A Vaccines Aged Out No long er eligible based on patient's age to complete this topic IPV Vaccines Aged Out No longer eligi ble based on patient's age to complete this topic Meningococcal ACWY Vaccine Aged Out N o longer eligible based on patient's age to complete this topic Meningococcal B Vacine Aged Out No lo nger eligible based on patient's age to complete this topic RSV Immunization Patients Under 20 months Aged Out No longer eligible based on patient's age to complete this topic Varicella Vaccines Aged Out No longer eligible based on patient's age to complete this topic Procedures Procedure Name Priority Date/Time Associated Diagnosis Comments CBC WITH AUTO DIFFERENTIAL Routine 03/05/2024 10:28 AM EST MGUS (monoclonal gammopathy of unknown significance) C REACTIVE PROTEIN, HIGH SENSITIVITY Routine 03/05/2024 10:28 AM EST Encounter for long-term (current) use of non-steroidal anti-inflammatories Primary generalized hypertrophic osteoarthrosis SEDIMENTATION RATE Routine 03/05/2024 10 :28 AM EST Encounter for long-term (current) use of non-steroidal anti-inflammatories Primary generalized hypertrophic osteoarthrosis CBC AND DIFFERENTIAL Routine 03/05/2024 10:28 AM EST MGUS (monoclonal gammopathy of unknown significance) COMPREHENSIVE METABOLIC PANEL Routine 03/05/2024 10:28 AM EST MGUS (monoclonal gammopathy of unknown significance) LACTATE DEHYDROGENASE Routine 03/05/2024 10:28 AM EST MGUS (monoclonal gammopathy of unknown significance) from Last 3 Months Results * (ABNORMAL) CBC auto differential (03/05/2024 10:28 AM EST) [facility] Signature WBC 4.9 4.8 - 10.8 K/[facility] LAB HEMETOLOGY METHOD 03/05/2024 1:03 PM EST [facility] RBC 4.70 3.80 - 4.80 M/mcL LAB HEMETOLOGY METHOD 03/05/2024 1:03 PM [facility] Hemoglobin 12.7 11.5 - 16.0 g/dL LAB HEMETOLOGY METHOD 03/05/2024 1:03 PM [facility] Hematocrit 40.6 35.0 - 47.0 % LAB HEMETOLOGY METHOD 03/05/2024 1:03 PM [facility] MCV 87.1 79.0 - 98.0 FL LAB HEMETOLOGY METHOD 03/05/2024 1:03 PM [facility] MCH 27.3 27.0 - 32.0 pcg LAB HEMETOLOGY METHOD 03/05/2024 1:03 PM [facility] MCHC 31.3(L) 32.0 - 37.0 g/dL LAB HEMETOLOGY METHOD 03/05/2024 1:03 PM [facility] RDW 15.1(H) 11.0 - 15.0 % LAB HEMETOLOGY METHOD 03/05/2024 1:03 PM [facility] Platelets 195 130 - 400 K/mcL LAB HEMETOLOGY METHOD 03/05/2024 1:03 PM [facility] MPV 10.6 7.0 - 11.0 FL LAB HEMETOLOGY METHOD 03/05/2024 1:03 PM [facility] NRBC 0.0 <1.0 % LAB HEMETOLOGY METHOD 03/05/2024 1:03 PM [facility] NRBC Absolute 0.00 <0.10 K/mcL LAB HEMETOLOGY METHOD 03/05/2024 1:03 PM [facility] Neutrophils Relative 37.2 % LAB HEMETOLOGY METHOD 03/05/2024 1:03 PM [facility] Lymphocytes Relative 47.1 % LAB HEMETOLOGY METHOD 03/05/2024 1:03 PM [facility] Monocytes Relative 9.8 % LAB HEMETOLOGY METHOD 03/05/2024 1:03 PM [facility] Eosinophils Relative 4.7 % LAB HEMETOLOGY METHOD 03/05/2024 1:03 PM [facility] Basophils Relative 0.8 % LAB HEMETOLOGY METHOD 03/05/2024 1:03 PM [facility] Immature Granulocytes Relative 0.4 % LAB HEMETOLOGY METHOD 03/05/2024 1:03 PM [facility] Neutrophils Absolute 1.82 1.50 - 7.00 K/mcL LAB HEMETOLOGY METHOD 03/05/2024 1:03 PM [facility] Lymphocytes Absolute 2.31 1.00 - 5.00 K/mcL LAB HEMETOLOGY METHOD 03/05/2024 1:03 PM [facility] Monocytes Absolute 0.48 0.20 - 1.00 K/mcL LAB HEMETOLOGY METHOD 03/05/2024 1:03 PM [facility] Eosinophils Absolute 0.23 0.00 - 0.50 K/mcL LAB HEMETOLOGY METHOD 03/05/2024 1:03 PM [facility] Basophils Absolute 0.04 0.00 - 0.20 K/mcL LAB HEMETOLOGY METHOD 03/05/2024 1:03 PM [facility] Immature Granulocytes Absolute 0.02 0.00 - 0.03 K/mcL LAB HEMETOLOGY METHOD 03/05/2024 1:03 PM [facility] Blood Venous blood specimen / Unknown Venipuncture / Unknown 03/05/2024 10:28 AM EST 03/05/2024 12:52 PM EST us Tai Magallanes MD LAB BLOOD ORDERABLE S Final Result [facility] [address] [place] [address], [place] [phone] * (ABNORMAL) Sedimentation rate (03/05/2024 10:28 AM EST) [facility] Sed Rate 32(H) 0 - 30 mm/hr LAB HEMETOLOGY METHOD 03/05/2024 1:[address] [facility] Blood Venous blood specimen / Unknown Venipuncture / Unknown 03/05/2024 10:28 AM EST 03/05/2024 12:52 PM EST us Merly Bui MD LAB BLOOD ORDERABLES Final Result Performing Organization Address [facility]/ZIP Co de Phone Number [facility] [address] [place] [address], [place] [phone] * C reactive protein, high sensitivity (03/05/2024 10:28 AM EST) [facility] CRP, High Sensitivity 2.71 mg/L LAB CHEMISTRY METHOD 03/05/2024 1:[address] [facility] Comment: Cardio CRP Relative Risk Categories ?? Low ? <1.0 mg/L ?? Average ?? 1.0 - 3.0 mg/L ?? High ?>3.0 mg/L Levels >10.0 mg/L should be ignored and repeated when the patient is stable and infection or inflammation is ruled out. HRT (estrogens) consistently increase cardio CRP levels. Risk estimates for women on HRT may need to be calibrated downward. Blood Venous blood specimen / Unknown Venipuncture / Unknown 03/05/2024 10:28 AM EST 03/05/2024 12:49 PM EST us Merly Bui MD LAB BLOOD ORDERABLES Final Result Performing Organization Address [facility]/ZIP Co de Phone Number [facility] [address] [place] [address], [place] [phone] * Lactate dehydrogenase (03/05/2024 10:28 AM EST) LDH 241 120 - 246 unit/L LAB CHEMISTRY METHOD 03/05/2024 1:42 PM [facility] Blood Venous blood specimen / Unknown Venipuncture / Unknown 03/05/2024 10:28 AM EST 03/05/2024 12:49 PM EST Tai Magallanes MD LAB BLOOD ORDERABLE S Final Result [facility] [address] [place] [address], * (ABNORMAL) Comprehensive metabolic panel (03/05/2024 10:28 AM EST) Pathologist [facility] Sodium 138 133 - 145 mmol/L LAB CHEMISTRY METHOD 03/05/2024 1:45 PM [facility] Potassium 4.1 3.5 - 5.5 mmol/L LAB CHEMISTRY METHOD 03/05/2024 1:45 PM [facility] Chloride 107 96 - 110 mmol/L LAB CHEMISTRY METHOD 03/05/2024 1:45 PM [facility] CO2 28 21 - 32 mmol/L LAB CHEMISTRY METHOD 03/05/2024 1:45 PM [facility] Anion Gap 3 3 - 11 LAB CHEMISTRY METHOD 03/05/2024 1:45 PM [facility] Glucose 110(H) 70 - 100 mg/dL LAB CHEMISTRY METHOD 03/05/2024 1:45 PM [facility] BUN 12 5 - 25 mg/dL LAB CHEMISTRY METHOD 03/05/2024 1:45 PM [facility] Creatinine 0.61 0.50 - 1.10 mg/dL LAB CHEMISTRY METHOD 03/05/2024 1:45 PM [facility] eGFR 105 >=60 mL/min/1. 73m2 LAB CHEMISTRY METHOD 03/05/2024 1:45 PM [facility] Comment:Calculation based on the??Chronic Kidney Disease Epidemiology Collaboration (CKD-EPI) equation refit??without adjustment for race. BUN/Creatinine Ratio 19.7 LAB CHEMISTRY METHOD 03/05/2024 1:45 PM [facility] Calcium 10.1 8.5 - 10.5 mg/dL LAB CHEMISTRY METHOD 03/05/2024 1:45 PM [facility] AST (SGOT) 24 10 - 42 unit/L LAB CHEMISTRY METHOD 03/05/2024 1:45 PM [facility] ALT (SGPT) 39 10 - 60 unit/L LAB CHEMISTRY METHOD 03/05/2024 1:45 PM [facility] Alkaline Phosphatase 86 42 - 121 unit/L LAB CHEMISTRY METHOD 03/05/2024 1:45 PM [facility] Total Protein 7.1 6.0 - 8.0 g/dL LAB CHEMISTRY METHOD 03/05/2024 1:45 PM [facility] Albumin 3.8 3.2 - 5.0 g/dL LAB CHEMISTRY METHOD 03/05/2024 1:45 PM [facility] Total Bilirubin 0.3 0.0 - 1.4 mg/dL LAB CHEMISTRY METHOD 03/05/2024 1:45 PM [facility] Blood Venous blood specimen / Unknown Venipuncture / Unknown 03/05/2024 10:28 AM EST 03/05/2024 12:49 PM EST us Subramony Sona RAMIREZ LAB BLOOD ORDERABLE S Final Result [facility] [address] [place] [address], [place] [phone] from Last 3 Months Insurance [facility] [employer] [id number] [facility] Care Teams Human Resource Internship Relationship Specialty Start Date End Date Victor Hugo Zuniga MD [address] [place] [id number] PCP - General Internal Medicine 09/08/14
--- OUTSIDE RECORDS SUMMARY | 2024-05-06 15:17 | XMS_ITS ---
Continuity of Care Document (CCD) Created on: May 06, 2024 Sasha Hess External Reference #: [id number] : [id number] Sex: Female Author Organization [facility] [address] [facility] [address] [place] [address] Phone [phone] Care Team Providers Care Heavy Forger Name Role Phone Victor Hugo Zuniga M.D. Care Team Information Recei rupa [phone] Problems Active Problems Provider Date Graves' disease Farshad Calderon M.D. Onset: 0 10/18/2021 Social History Type Date Description Comments Sex Unknown Tobacco Use Start: Unknown Never Smoked Cigarettes Smoking Status Reviewed: 08/09/22 Never Smoked Cigaret milton ETOH Use Rarely consumes alcohol Allergies and adverse reactions Active Allergies Criticality Reaction Severity Comments Date Bactrim Unable to assess criticality 10/18/2021 Marychuy Unable to assess criticality 10/18/2021 Medications Active Medications SIG Qnty Indications Ordering Provider Date Diclofenac [id number] Tablets DR Take 1 Tablet By Mouth Twice A Day For 90 Days Unknown Metoprolol [id number] Tablets Take 1/2 Tablet By Mouth Every Day Victor Hugo Zuniga M.D. Albuterol Sulfate [id number](90Base) mcg/Act Aerosol Victor Hugo Zuniga M.D. Eveqyepqk444-7.5mcg/Ac t Aerosol inhale 2 puffs by mouth twice daily Unknown Pravastatin Khdyrn09se Tablets 1 by mouth every day Unknown [id number] Tablets take 1 tablet by mouth three times a day as needed Unknown Restasis0.05% Emulsion 1 drop each eye twice daily Unknown Vital Signs Date Vital Result Comment 12/16/2023 8:07am BP Systolic 120 mmHg BP Diastolic 80 mmHg Heart Rate 72 /min Height 69 inches 5'9 Weight 282.50 lb BMI (Body Mass Index) 41.7 kg/m2 Results Test Acquired Date Facility Test Result H/L Range Note Triiodothyronine (T3), Free 09/25/2023 [facility] Triiodothyronine (T3), Free 3.0 pg/mL 2.0-4.4 TSH+Free T4 09/25/2023 [facility] TSH 0.479 uIU/mL 0.450-4 .500 T4,Free(Direct) 0.92 ng/dL 0.82-1. 77 Triiodothyronine (T3), Free 08/19/2023 [facility] Triiodothyronine (T3), Free <pending > TSH Rfx on Abnormal to Free T4 08/17/2023 [facility] TSH RFX On Abnormal To Free T4 0.021 uIU/mL Low 0.450-4 .500 T4,Free (Direct) 1.14 ng/dL 0.82-1. 77 TSH RFX On Abnormal To Free T4 08/06/2023 [facility] TSH RFX On Abnormal To Free T4 <pending > TSH Rfx on Abnormal to Free T4 08/03/2023 [facility] TSH RFX On Abnormal To Free T4 0.007 uIU/mL Low 0.450-4 .500 T4,Free (Direct) 1.41 ng/dL 0.82-1. 77 T4 Free & T3 Free 08/03/2023 [facility] Thyroxine (T-4), Serum 9.8 g /dL 1 Free T-3 3.9 pg/mL 2 Triiodothyronin e (T-3), Serum 151 ng/dL 3 Free Thyroxine 1.45 ng/dL 4 TSH+Free T4 06/06/2023 [facility] T4,Free(Direct) 1.75 ng/dL 0.82-1. 77 5 TSH <0.005 uIU/mL Low 0.450-4 .500 TSH 04/06/2023 [facility] TSH 0.23 uIU/mL Low (0.4-4. 2) Free T4 04/06/2023 [facility] Free T4 1.54 ng/dL (0.70-1 .80) TSH With Reflex To FT4 02/01/2023 [facility] TSH With Reflex To FT4 1.10 uIU/mL (0.4-4. 2) TSH 12/03/2022 [facility] TSH 0.12 uIU/mL Low (0.4-4. 2) TSH 09/04/2022 [facility] TSH 0.67 uIU/mL (0.4-4. 2) Free T4 09/04/2022 [facility] Free T4 0.96 ng/dL (0.70-1 .80) TSH 08/09/2022 [facility] TSH 0.23 uIU/mL Low (0.4-4. 2) Free T3 08/09/2022 [facility] Free T3 4.2 pg/mL (2.3-5. 0) Free T4 08/09/2022 [facility] Free T4 1.19 ng/dL (0.70-1 .80) TSH 04/19/2022 [facility] TSH <0.01 uIU/mL Low (0.4-4. 2) Free T3 04/19/2022 [facility] Free T3 5.0 pg/mL (2.3-5. 0) Free T4 04/19/2022 [facility] Free T4 1.68 ng/dL (0.70-1 .80) TSH 03/22/2022 [facility] TSH <0.01 uIU/mL Low (0.4-4. 2) Free T4 03/22/2022 [facility] Free T4 1.75 ng/dL (0.70-1 .80) Free T3 03/22/2022 [facility] Free T3 6.0 pg/mL High (2.3-5. 0) 1 Reference Range: Adults: 4.2 - 13.0 2 Reference Range: >=20y: 2.0 - 4.4 3 Reference Range: Adults: 55 - 170 4 Reference Range: >=20y: 0.82 - 1.77 5 STANDING ORDER Medical Devices Description No Information Available Encounters Type Date Location Provider Dx Diagnosis Office Visit 12/16/2023 8:15a Main Office Farshad Calderon M.D. E05.00 Thyrotoxicosis w diffuse goiter w/o thyrotoxic crisis Assessments Date Code Description Provider 12/16/2023 E05.00 Graves' disease Farshad santos M.D. Plan of Treatment Future Appointment(s):* 06/15/2024 8:45 am - Farshad Calderon M.D. 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
== END 2024-05-06 12:54 | disposition home or self-care (01) ==
LOC: HO.XRAY 12:53
PROVIDERS: PCP Internal Medicine; Visit Provider Hospitalist
DX: R07.81 Pleurodynia (principal)
CPT/HCPCS: 71046

== ENCOUNTER → 2024-05-06 12:58 | Outpatient (BNV) | payer OTHER, SELFPAY | PROVIDERS: PCP Internal Medicine; Visit Provider Radiology Diagnostic Radiology | DX: R07.81 Pleurodynia (principal) | CPT/HCPCS: 71046 ==

== ENCOUNTER 2024-05-07 09:25 | Outpatient (AMB) | payer OTHER, SELFPAY ==
[2024-05-07 09:31] VITALS: BP 110/78; PULSE 78; O2SAT 98; BMI 42.2
--- NOTE | 2024-05-07 09:31 | MHC.OFFVIS ---
Vital Signs 05/07/24 09:31 Height 5 ft 9 in Weight 285 lb 7.978 oz BMI 42.2 BP 110/78 Blood Pressure Location Lt brachial Position Sitting Pulse 78 Pulse Source Pulse Oximeter Pulse Oximetry (%) 98 Oxygen Delivery Method Room Air Intake Visit Reasons: Dyspnea/CXR Follow Up Allergies fexofenadine [From Marychuy] Allergy (Severe, Verified 05/07/24 09:34) Anaphylaxis sulfamethoxazole [From Bactrim] Allergy (Severe, Verified 05/07/24 09:34) Rash trimethoprim [From Bactrim] Allergy (Severe, Verified 05/07/24 09:34) Rash HPI Comments Details: The patient is a 58 year woman with worsening dyspnea symptoms. The patient states that she was in usual state health until at the after developing COVID she started noticing worsening respiratory symptoms. She did have a full cardiac evaluation. We will request those results at this time. In addition to that, the patient did have a pulmonary evaluation including PFTs and CT scan of the chest. Will also request those results. The patient feels like she has been getting worse. She gets short of breath even with mild activities of daily living. She has not responded to the current respiratory regimen. On examination she does have some end-expiratory wheezing on forced exhalation. In doing a brief walking oximetry the patient did desaturate down to about 94% And also had evidence of dyspnea. In addition to the dyspnea the patient also carries a diagnosis of sleep apnea. She has been on CPAP for many years. The therapy has been affecting beneficial. She does follow-up with [facility]. 11/06/2022 the patient is here for a pulmonary follow-up visit. Overall the patient is doing better. She still having dyspnea on exertion but overall a little improved. She is responding well to the Symbicort. Sometimes is causing some raspiness of her voice which she does not like. She wishes to have a rescue inhaler that she can use as needed. In addition to that the patient did undergo pulmonary function studies. We did review the results. 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 She also has noted that her pre bronchodilator numbers were actually better than her post. Therefore the some degree of musculoskeletal disease or fatigability of the muscles. The patient does have a scheduled CT scan with her thoracic surgeon regarding her thymus. She denies ever been diagnosed with myasthenia gravis. In addition to this the patient did have recent breast surgery. This was benign mass that was taken care of. 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 Therefore, I do believe that starting pulmonary rehabilitation at this time with very important. 01/18/2023 the patient is here for a sick visit. Apparently she was exposed to sick contacts sometime Thanksgiving. After she developed fever and worsening cough. Subsequently after that her asthma became very active with having significant chest tightness and wheezing. She went to an urgent care and was given prednisone. She was also given a Z-Andrey. The patient is no better and she did follow-up with primary care doctor also provide her additional steroids. Ultimately the patient still not improve and she decided to come into the ER. In the ER the patient did have blood work in addition to swap. Negative for RSV. COVID and flow. Although this is about a week after symptoms started so the therefore explained to her that is less likely to become positive at this point. The patient had a CTA as well which I personally reviewed. No evidence of any active pulmonary disease. The airways look intact. Some mosaic pattern suggesting air trapping. She also has an incidental finding of a simple says some left kidney. In the office she did have significant coughing nonproductive although at times it can be productive for her with yellowish phlegm. She was given 2 DuoNeb treatments any improved her wheezing and her cough significantly. The patient will start a course of doxycycline. She will complete the prednisone and she will also switch her Breo over to breztri. Apparently she had responded well to the Symbicort but then because of insurance issues with switched over to Breo and she does not find Breo working well for her. She also is irritated by the powder. 02/06/2023 the patient is finally feeling better. She completed the antibiotics and also had been using nebulizer several times a day. She did respond better to the DuoNeb as opposed to the albuterol. Denied any adverse effects from that. She did not require the additional prednisone which is reassuring. She is back to her baseline. She is using the Breztri inhaler. She has noticing a little hoarseness. Since she is doing better she can decrease the amount of the medication to 1 puff twice a day to see if this improves her hoarseness. The patient is ready to go back to pulmonary rehabilitation. In the office we did fill out her FMLA papers and also provide her with a letter to go back to pulmonary rehabilitation without any restrictions. 05/07/2023 the patient is here for pulmonary follow-up visit. The patient overall has been feeling better. She was able to wean off the maintenance inhaler. Although then she was working on her home and she was exposed to fumes and the patient had 2 restarted. The patient went back to pulmonary rehabilitation. There was an issue with delay in therefore she was not able to go back. Now she is back and she is going to finish program. She also has a CPAP. The CPAP therapy has been affecting beneficial. Was adjusted during the last visit. The therapy has been affecting beneficial. She does use it for more than 4 hours a night. She does get supplies from [facility]. She uses the nasal pillows. Will go ahead and send for supplies and request access to her machine to adjusted if needed. 12/24/2023 the patient is here for a pulmonary follow-up visit. Overall she is doing well. She continues uses CPAP every night. APAP 7-11. The pressure seemed to be good. AHI is down to 1. She does use it for more than 4 hours a night. He has been very affecting beneficial. She did follow-up with cardiology and cardiac issues are stable which is reassuring. She is hoping to lose weight and hopefully get off the CPAP. I did encourage her to do so but sometimes is not so much about the weight but about the anatomy of the neck. Will repeat her sleep study when she gets to her ideal weight. In the meantime she has been having issues with some wheezing and some shortness of breath and chest tightness. Msyk-zw-iqjsnhno severity. The patient has stopped using the rescue inhaler. She can go ahead and restarted use it as needed. We did review her CT scan of the chest that she had in 01/30/2023. It was a CTA. I did review the images with her. She does have a 3 mm pulmonary nodule that is very obvious on the left hemithorax. Unfortunately was not read on the CT scan report. Will go ahead and assess to see if she has any CT scans from [facility] so we can compare. If the nodule is new or if we do not have any comparisons then will have to repeat a new CT scan sometime in the spring. 05/07/2024 the patient is here for a a sick visit. Apparently she started developing pleuritic chest pain. Feels like a burning sensation. Moderate severity. Mainly when she is needs his and coughs. Sometimes if she does take a deep breath it does bother her. Mainly substernal area. It is did reproducible when pressing on to the costochondral joints. The patient is also having shortness of breath. Primarily chest tightness and coughing. The Breztri inhaler does provide some relief. She is having some lower extremity edema as well. Denies any history of blood clots. The patient also has a history of arthritis and she does take Salvador 2 inhibitors. She did have a chest x-ray which I personally reviewed. Some haziness around the bronchovascular bundles. Suggesting some small airways disease. No effusions. Based on her discomfort will go ahead and request blood work including a D-dimer. This elevated she is going to have to get a CTA. The patient also is going to have a cardiology evaluation and will have an echocardiogram in the next few weeks. The patient will return in 3 months with PFTs. In the meantime she is going to continue on the Breztri. [facility] Medical History (Updated 05/04/24 @ 16:15 by Gatito Collins MD) Pleuritic chest pain Asthma [id number] syndrome SASHA on CPAP Wheezing Dyspnea Social History Patient Tobacco Use Status: Never used Tobacco Review of Systems Const Denies difficulty sleeping, Denies fever(s) and Denies malaise ENT Reports nasal congestion Card Denies chest pain and Reports dyspnea on exertion Resp Denies chest congestion, Reports cough, Reports pain on inspiration, Reports pain with cough, Reports dyspnea on exertion and Reports wheezing GI Reports no additional complaints Musc Reports no additional complaints Skin/Breast Denies rash Neuro Reports no additional complaints Psych Denies anxiety Al/Lymph Denies lymphadenopathy Aller/Immun Reports wheezing Physical Exam Vital Signs: Last Vital Signs Pulse 78 05/07/24 09:31 BP 110/78 05/07/24 09:31 Pulse Ox 98 05/07/24 09:31 Oxygen Delivery Method Room Air 05/07/24 09:31 BMI result Body Mass Index 42.2 Const General: comfortable HEENT Head: Yes normocephalic Neck Neck: Yes normal visual inspection and Yes supple Chest Chest palpation & inspection: tenderness costochondral junction Resp Effort & Inspection: normal respiratory effort, no cough and No prolonged expiratory phase Auscultation: no rales, no rhonchi, no wheezes and diminished lung sounds Cardio Rate: regular rate Rhythm: regular rhythm Heart sounds: S1 normal heart sound present and S2 normal heart sound present GI Palpation (GI): Soft to palpation Skin General skin exam: no rashes or lesions noted Extrem General: Yes no clubbing, cyanosis or edema Assessment & Plan Assessment & Plan (1) Dyspnea: Code(s): R06.00 - Dyspnea, unspecified Category: Medical Qualifiers: Dyspnea type: dyspnea on exertion Qualified Code(s): R06.09 - Other forms of dyspnea (2) SASHA on CPAP: Code(s): G47.33 - Obstructive sleep apnea (adult) (pediatric) Category: Medical (3) Asthma: Code(s): J45.909 - Unspecified asthma, uncomplicated Category: Medical Qualifiers: Asthma complication type: uncomplicated Asthma persistence: persistent Asthma severity: moderate Qualified Code(s): J45.40 - Moderate persistent asthma, uncomplicated (4) Pleuritic chest pain: Code(s): R07.81 - Pleurodynia Category: Medical Plan continue Breztri BID, ok to decrease 1 puff BID ALFREDO as needed continue nebulizer 2-4 times a day as needed Cont APAP 7-11, requesting supplies from [facility], 0i, provided airtouch insert bloodwork CT chest to assess CP, chest xray abnormal F/U 3 months with PFTs Orders: Orders Cyclic Citrullinated Peptide Today R07.81 - Pleurodynia Complete Blood Count Auto Diff Today R07.81 - Pleurodynia Immunoglobulin E Today R07.81 - Pleurodynia MICHELE Reflex Titer and Pattern Today R07.81 - Pleurodynia Basic Metabolic Panel Today R07.81 - Pleurodynia Troponin-I High Sensitivity Today R07.81 - Pleurodynia Erythrocyte Sedimentation Rate Today R07.81 - Pleurodynia Immunoglobulins,IgG IgA IgM Today R07.81 - Pleurodynia D Dimer High Sensitivity Today R07.81 - Pleurodynia PFT pulmonary function test Today J45.40 - Moderate persistent asthma, uncomplicated CT chest wo IV con Today R07.81 - Pleurodynia Coding Level of Care Code Est Pt Level 4 (92922) Diagnoses Dyspnea on exertion R06.09 Dyspnea type: dyspnea on exertion SASHA on CPAP G47.33 Moderate persistent asthma without complication J45.40 Asthma complication type: uncomplicated Asthma persistence: persistent Asthma severity: moderate Pleuritic chest pain R07.81 Time Spent (min) 17
--- OUTSIDE RECORDS SUMMARY | 2024-05-07 11:21 | XMS_ITS | Clinical Summary ---
Author Organization [facility] Address [address] [place] [address] Phone Care Team Providers Care Vending Mechanic Name Role Phone Victor Hugo Zuniga MD Primary Care Provider + [phone] Allergies Active Allergy Reactions Criticality Noted Date [...] COMMENT: Lasik OTHER SURGICAL HISTORY 08/25/2019 PROCEDURE: [facility] THORACOSCOPY RESEXN THYMUS UNI/BILATERAL KNEE ARTHROSCOPY W/ MENISCAL REPAIR 2019 Left PROCEDURE: NH ARTHROSCOPY KNEE W/MENISCUS RPR MEDIAL/LATERAL Medical History [...] Description 06/02/2024 11:00 AM EDT Ancillary Procedure [facility] [address] [place] [id number] 06/15/2024 3:30 PM EDT Office Visit [facility] [address] [facility] [address] [place] [address] Baldomero Chavez MD [address] [facility] [place] [address] 07/16/2024 8:00 AM EDT Office Visit Breast [facility] [address] [facility] [address] [place] [phone] Armand Nascimento MD [address] [facility] [address] [place], [place] [id number] 11/23/2024 9:00 AM EDT Office Visit [facility] Hematology Oncology [address] [place] [address] Tai Magallanes MD [address] [place] [address] Health Maintenance Due Date Last [...] CBC auto differential (03/05/2024 10:28 AM EST) [facility] Signature WBC 4.9 4.8 - 10.8 K/[facility] LAB HEMETOLOGY METHOD 03/05/2024 1:03 PM EST [facility] RBC 4.70 3.80 - 4.80 M/mcL LAB HEMETOLOGY METHOD 03/05/2024 1:03 PM [facility] Hemoglobin 12.7 11.5 - 16.0 g/dL LAB HEMETOLOGY METHOD 03/05/2024 1:03 PM [facility] Hematocrit 40.6 35.0 - 47.0 % LAB HEMETOLOGY METHOD 03/05/2024 1:03 PM [facility] MCV 87.1 79.0 - 98.0 FL LAB HEMETOLOGY METHOD 03/05/2024 1:03 PM [facility] MCH 27.3 27.0 - 32.0 pcg LAB HEMETOLOGY METHOD 03/05/2024 1:03 PM [facility] MCHC 31.3(L) 32.0 - 37.0 g/dL LAB HEMETOLOGY METHOD 03/05/2024 1:03 PM [facility] RDW 15.1(H) 11.0 - 15.0 % LAB HEMETOLOGY METHOD 03/05/2024 1:03 PM [facility] Platelets 195 130 - 400 K/mcL LAB HEMETOLOGY METHOD 03/05/2024 1:03 PM [facility] MPV 10.6 7.0 - 11.0 FL LAB HEMETOLOGY METHOD 03/05/2024 1:03 PM [facility] NRBC 0.0 <1.0 % LAB HEMETOLOGY METHOD 03/05/2024 1:03 PM [facility] NRBC Absolute 0.00 <0.10 K/mcL LAB HEMETOLOGY METHOD 03/05/2024 1:03 PM [facility] Neutrophils Relative 37.2 % LAB HEMETOLOGY METHOD 03/05/2024 1:03 PM [facility] Lymphocytes Relative 47.1 % LAB HEMETOLOGY METHOD 03/05/2024 1:03 PM [facility] Monocytes Relative 9.8 % LAB HEMETOLOGY METHOD 03/05/2024 1:03 PM [facility] Eosinophils Relative 4.7 % LAB HEMETOLOGY METHOD 03/05/2024 1:03 PM [facility] Basophils Relative 0.8 % LAB HEMETOLOGY METHOD 03/05/2024 1:03 PM [facility] Immature Granulocytes Relative 0.4 % LAB HEMETOLOGY METHOD 03/05/2024 1:03 PM [facility] Neutrophils Absolute 1.82 1.50 - 7.00 K/mcL LAB HEMETOLOGY METHOD 03/05/2024 1:03 PM [facility] Lymphocytes Absolute 2.31 1.00 - 5.00 K/mcL LAB HEMETOLOGY METHOD 03/05/2024 1:03 PM [facility] Monocytes Absolute 0.48 0.20 - 1.00 K/mcL LAB HEMETOLOGY METHOD 03/05/2024 1:03 PM [facility] Eosinophils Absolute 0.23 0.00 - 0.50 K/mcL LAB HEMETOLOGY METHOD 03/05/2024 1:03 PM [facility] Basophils Absolute 0.04 0.00 - 0.20 K/mcL LAB HEMETOLOGY METHOD 03/05/2024 1:03 PM [facility] Immature Granulocytes Absolute 0.02 0.00 - 0.03 K/mcL LAB HEMETOLOGY METHOD 03/05/2024 1:03 PM [facility] Blood Venous blood specimen / Unknown Venipuncture / Unknown 03/05/2024 10:28 AM EST 03/05/2024 12:52 PM EST us Tai Magallanes MD LAB BLOOD ORDERABLE S Final Result [facility] [address] [place] [address], [place] [phone] * (ABNORMAL) Sedimentation rate (03/05/2024 10:28 AM EST) [facility] Sed Rate 32(H) 0 - 30 mm/hr LAB HEMETOLOGY METHOD 03/05/2024 1:09 PM EST [facility] Blood Venous blood specimen / Unknown Venipuncture / Unknown 03/05/2024 10:28 AM EST 03/05/2024 12:52 PM EST us Merly Bui MD LAB BLOOD ORDERABLES Final Result Performing Organization Address [facility]/ZIP Co de Phone Number [facility] [address] [place] [address], [place] [phone] * C reactive protein, high sensitivity (03/05/2024 10:28 AM EST) [facility] CRP, High Sensitivity 2.71 mg/L LAB CHEMISTRY METHOD 03/05/2024 1:45 PM EST [facility] Comment: Cardio CRP Relative Risk [...] BLOOD ORDERABLES Final Result Performing Organization Address [facility]/ZIP Co de Phone Number [facility] [address] [place] [address], [place] [phone] * Lactate dehydrogenase (03/05/2024 10:28 AM EST) LDH 241 120 - 246 unit/L LAB CHEMISTRY METHOD 03/05/2024 1:42 PM [facility] Blood Venous blood specimen / Unknown Venipuncture / Unknown 03/05/2024 10:28 AM EST 03/05/2024 12:49 PM EST Tai Magallanes MD LAB BLOOD ORDERABLE S Final Result [facility] [address] [place] [address], * (ABNORMAL) Comprehensive metabolic panel (03/05/2024 10:28 AM EST) Pathologist [facility] Sodium 138 133 - 145 mmol/L LAB CHEMISTRY METHOD 03/05/2024 1:45 PM [facility] Potassium 4.1 3.5 - 5.5 mmol/L LAB CHEMISTRY METHOD 03/05/2024 1:45 PM [facility] Chloride 107 96 - 110 mmol/L LAB CHEMISTRY METHOD 03/05/2024 1:45 PM [facility] CO2 28 21 - 32 mmol/L LAB CHEMISTRY METHOD 03/05/2024 1:45 PM [facility] Anion Gap 3 3 - 11 LAB CHEMISTRY METHOD 03/05/2024 1:45 PM [facility] Glucose 110(H) 70 - 100 mg/dL LAB CHEMISTRY METHOD 03/05/2024 1:45 PM [facility] BUN 12 5 - 25 mg/dL LAB CHEMISTRY METHOD 03/05/2024 1:45 PM [facility] Creatinine 0.61 0.50 - 1.10 mg/dL LAB CHEMISTRY METHOD 03/05/2024 1:45 PM [facility] eGFR 105 >=60 mL/min/1. 73m2 LAB CHEMISTRY METHOD 03/05/2024 1:45 PM [facility] Comment:Calculation based on the??Chronic Kidney Disease Epidemiology Collaboration (CKD-EPI) equation refit??without adjustment for race. BUN/Creatinine Ratio 19.7 LAB CHEMISTRY METHOD 03/05/2024 1:45 PM [facility] Calcium 10.1 8.5 - 10.5 mg/dL LAB CHEMISTRY METHOD 03/05/2024 1:45 PM [facility] AST (SGOT) 24 10 - 42 unit/L LAB CHEMISTRY METHOD 03/05/2024 1:45 PM [facility] ALT (SGPT) 39 10 - 60 unit/L LAB CHEMISTRY METHOD 03/05/2024 1:45 PM [facility] Alkaline Phosphatase 86 42 - 121 unit/L LAB CHEMISTRY METHOD 03/05/2024 1:45 PM [facility] Total Protein 7.1 6.0 - 8.0 g/dL LAB CHEMISTRY METHOD 03/05/2024 1:45 PM [facility] Albumin 3.8 3.2 - 5.0 g/dL LAB CHEMISTRY METHOD 03/05/2024 1:45 PM [facility] Total Bilirubin 0.3 0.0 - 1.4 mg/dL LAB CHEMISTRY METHOD 03/05/2024 1:45 PM [facility] Blood Venous blood specimen / Unknown Venipuncture / Unknown 03/05/2024 10:28 AM EST 03/05/2024 12:49 PM EST us Subramony Sona RAMIREZ LAB BLOOD ORDERABLE S Final Result [facility] [address] [place] [address], [place] [phone] from Last 3 Months Insurance [facility] [place] [place] [id number] [facility] Care Teams Vending Mechanic Relationship Specialty Start Date End Date Victor Hugo Zuniga MD [address] [place] [id number] PCP - General Internal Medicine 09/08/14
--- OUTSIDE RECORDS SUMMARY | 2024-05-07 11:21 | XMS_ITS | Continuity of Care Document ---
Author Organization [facility] [address] [place] [address] Phone [phone] Care Team Providers Care Freight Agent Name Role Phone Victor Hugo Zuniga M.D. Care Team Information Recei rupa [phone] Problems Active Problems Provider Date Graves' disease [...] SIG Qnty Indications Ordering Provider Date Diclofenac [id number] Tablets DR Take 1 Tablet By Mouth Twice A Day For 90 Days Unknown Metoprolol Zedrsayj05ed Tablets Take 1/2 Tablet By Mouth Every Day Victor Hugo Zuniga M.D. Albuterol Sulfate QOZ509(90Base) mcg/Act Aerosol Victor Hugo Zuniga M.D. Snkfwpaqg672-4.5mcg/Ac t Aerosol inhale 2 puffs by mouth twice daily Unknown Pravastatin Oowlct99lk Tablets 1 by mouth every day Unknown [id number] Tablets take 1 tablet by mouth three [...] <0.005 uIU/mL Low 0.450-4 .500 TSH 04/06/2023 [facility] TSH 0.23 uIU/mL Low (0.4-4. 2) Free T4 04/06/2023 [facility] Free T4 1.54 ng/dL (0.70-1 .80) TSH With Reflex To FT4 02/01/2023 [facility] TSH With Reflex To FT4 1.10 uIU/mL (0.4-4. 2) TSH 12/03/2022 [facility] TSH 0.12 uIU/mL Low (0.4-4. 2) TSH 09/04/2022 [facility] TSH 0.67 uIU/mL (0.4-4. 2) Free T4 09/04/2022 [facility] Free T4 0.96 ng/dL (0.70-1 .80) TSH 08/09/2022 [facility] TSH 0.23 uIU/mL Low (0.4-4. 2) Free T3 08/09/2022 [facility] Free T3 4.2 pg/mL (2.3-5. 0) Free T4 08/09/2022 [facility] Free T4 1.19 ng/dL (0.70-1 .80) TSH 04/19/2022 [facility] TSH <0.01 uIU/mL Low (0.4-4. 2) Free T3 04/19/2022 [facility] Free T3 5.0 pg/mL (2.3-5. 0) Free T4 04/19/2022 [facility] Free T4 1.68 ng/dL (0.70-1 .80) TSH 03/22/2022 [facility] TSH <0.01 uIU/mL Low (0.4-4. 2) Free T4 03/22/2022 [facility] Free T4 1.75 ng/dL (0.70-1 .80) Free T3 03/22/2022 [facility] Free T3 6.0 pg/mL High (2.3-5. [...]
--- OUTSIDE RECORDS SUMMARY | 2024-05-07 11:21 | XMS_ITS | Clinical Summary ---
Author Organization [facility] Address [address] [place] [id number] Care Team Providers Care Java Web Application Developer Name Role Phone Victor Hugo Zuniga MD Primary Care Provider [phone] Allergies Active Allergy Reactions Criticality Noted Date [...] age to complete this topic Care Teams Java Web Application Developer Relationship Specialty Start Date End Date Victor Hugo Zuniga MD PCP - General Internal Medicine 03/07/17
== END 2024-05-07 09:58 | disposition home or self-care (01) ==
LOC: HO.HPS 09:26
PROVIDERS: PCP Internal Medicine; Visit Provider Hospitalist
DX: R06.09 Other forms of dyspnea (principal); G47.33 Obstructive sleep apnea (adult) (pediatric); J45.40 Moderate persistent asthma, uncomplicated; R07.81 Pleurodynia
CPT/HCPCS: 99214

== ENCOUNTER 2024-05-07 09:25 | Outpatient (REF) | payer OTHER, SELFPAY ==
[2024-05-07 10:42] LABS: MANUAL DIFF FLAG NO
[2024-05-07 11:36] LABS: Basophils Absolute Auto 0.1 X10*3/uL (0.0-0.2); Basophils Percent Auto 0.9 % (0-2); Eosinophils Absolute Auto 0.2 X10*3/uL (0.0-0.4); Eosinophils Percent Auto 3.3 % (0-4); Hematocrit 39.8 % (37.0-47.0); Hemoglobin 12.6 g/dl (12.0-16.0); Lymphocytes Absolute Auto 2.9 X10*3/uL (1.2-4.9); Lymphocytes Percent Auto 50.3 % (20-40); Mean Corpuscular HGB Conc 31.7 g/dl (31.0-35.0); Mean Corpuscular Hemoglobin 26.9 pg (27.0-33.0); Mean Corpuscular Volume 84.9 fL (80.0-98.0); Mean Platelet Volume 10.2 fL (9.4-12.3); Monocytes Absolute Auto 0.4 X10*3/uL (0.1-1.2); Neutrophils Absolute Auto 2.2 x10*3/uL (2.0-8.3); Neutrophils Percent Auto 38.5 % (45-73); Platelet Count 202 X10*3/uL (160-400); Red Blood Count 4.69 X10*6/uL (4.20-5.50); Red Cell Distribution Width 15.3 % (11.0-16.0); White Blood Count 5.8 X10*3/uL (4.8-10.8)
[2024-05-07 11:51] LABS: D Dimer High Sensitivity 180 NG/ML
[2024-05-07 11:57] LABS: Anion Gap 9 (12-20); Blood Urea Nitrogen 7 mg/dL (9-16); Calcium 10.2 mg/dL (8.4-10.2); Carbon Dioxide 29 mmol/L (22-29); Chloride 107 mmol/L (96-108); Estimated Glomerular Filt Rate > 60; Glucose Random 88 mg/dL (60-115); Sodium 141 mmol/L (135-145)
[2024-05-07 12:08] LABS: Troponin-I High Sensitivity < 2.7 ng/L (<3.5-17.0)
[2024-05-07 12:16] LABS: Erythrocyte Sedimentation Rate 13 MM/HR (0-20)
[2024-05-08 17:04] LABS: IgA 86 mg/dL (47-310); IgG 1412 mg/dL (600-1640); IgM 54 mg/dL (50-300)
[2024-05-08 22:33] LABS: Immunoglobulin E 14 kU/L (<OR=114)
[2024-05-12 09:34] LABS: Anti Nuclear Antibody Screen NEGATIVE (NEGATIVE)
[2024-05-12 15:58] LABS: Cyclic Citrullinated Peptide <16 UNITS
== END 2024-05-07 09:26 | disposition home or self-care (01) ==
LOC: HO.LAB 09:25
PROVIDERS: PCP Internal Medicine; Visit Provider Hospitalist
DX: R07.81 Pleurodynia (principal)
CPT/HCPCS: 36415; 80048; 82784; 82785; 84484; 85025; 85379; 85652; 86038; 86200

== ENCOUNTER 2024-06-24 07:47 | Outpatient (REF) | payer OTHER, SELFPAY ==
--- NOTE | ~2024-06-24 | CT_ITS ---
EXAMINATION: CT CHEST WITHOUT IV CONTRAST INDICATION: R07.81 - Pleurodynia COMPARISON: Comparison is made with the prior examination dated 01/12/2023. TECHNIQUE: Helical CT scan of the chest was performed without intravenous contrast. Coronal and sagittal reformatted images were generated and reviewed. This CT exam was performed with one or more of the following dose reduction techniques: automated exposure control, adjustment of the mA and/or kV according to patient size, use of iterative reconstruction technique. DLP: 196 mGy-cm CHEST: THYROID: The thyroid is unremarkable. LUNGS: There is a 5 mm nodule in the right upper lobe (series 4, image 52). This appears slightly more rounded than on the prior study. Again seen is a 3 mm nodule in the left lower lobe (series 4, image 72). There are calcified granulomas in the right middle lobe (series 4, images 76 and 82) and in the left lower lobe (series 4, image 78). MEDIASTINUM: There is no mediastinal lymphadenopathy. KRISTINE: Evaluation of the hilar regions is limited by lack of intravenous contrast material. CARDIOVASCULATURE: The heart is normal in size. There is no pericardial effusion. The thoracic aorta is normal in caliber. DEGREE OF CORONARY CALCIFICATION: none PLEURA: There is no pleural effusion. No pneumothorax. MAIN AIRWAYS: The mainstem bronchi and proximal branches are patent. AXILLA: There is no axillary lymphadenopathy. BONES AND SOFT TISSUES: Unremarkable UPPER ABDOMEN: The visualized portions of the liver, spleen, and adrenals have an unremarkable unenhanced appearance. CT/CT chest wo IV con IMPRESSION: 5 mm right upper lobe nodule which appears slightly more rounded than on the prior study. A follow-up chest CT is recommended in 6 months. Electronically signed by: Diego Abbott MD 06/24/2024 08:30 AM EDT
--- OUTSIDE RECORDS SUMMARY | 2024-06-24 07:49 | XMS_ITS | Continuity of Care Document ---
Author Organization [facility] [address] [place] [address] Phone [phone] Care Team Providers Care Electric Motor Rebuilder Name Role Phone Victor Hugo Zuniga M.D. Care Team Information Recei rupa [phone] Problems Active Problems Provider Date Graves' disease [...] SIG Qnty Indications Ordering Provider Date Diclofenac [id number] Tablets DR Take 1 Tablet By Mouth Twice A Day For 90 Days Unknown Metoprolol [id number] Tablets Take 1/2 Tablet By Mouth Every Day Victor Hugo Zuniga M.D. Albuterol Sulfate FRU556(90Base) mcg/Act Aerosol Victor Hugo Zuniga M.D. Bjjgxuthj440-4.5mcg/Ac t Aerosol inhale 2 puffs by mouth twice daily Unknown Pravastatin [id number] Tablets 1 by mouth every day Unknown [id number] Tablets take 1 tablet by mouth three times a day as needed Unknown Restasis0.05% Emulsion 1 drop each eye twice daily Unknown Vital Signs Date Vital Result Comment 06/15/2024 8:45am BP Systolic 120 mmHg BP Diastolic 70 mmHg Heart Rate 80 /min Height 69 inches 5'9 Weight 286.12 lb BMI (Body Mass Index) 42.2 kg/m2 Results Test Acquired Date Facility Test Result H/L Range Note TSH reflex to T4F 06/13/2024 [facility] Thyroid Stimulating Hormone (TSH) 6.090 uIU/mL High 0.450-4 .500 T4,Free (Direct) 0.83 ng/dL 0.82-1. 77 TSH+Free T4 09/25/2023 [facility] TSH 0.479 uIU/mL 0.450-4 .500 T4,Free(Direct) 0.92 ng/dL 0.82-1. 77 Triiodothyronine (T3), Free 09/25/2023 [facility] Triiodothyronine (T3), Free 3.0 pg/mL 2.0-4.4 Triiodothyronine (T3), Free 08/19/2023 [facility] Triiodothyronine (T3), [...] <0.005 uIU/mL Low 0.450-4 .500 TSH 04/06/2023 [facility] TSH 0.23 uIU/mL Low (0.4-4. 2) Free T4 04/06/2023 [facility] Free T4 1.54 ng/dL (0.70-1 .80) TSH With Reflex To FT4 02/01/2023 [facility] TSH With Reflex To FT4 1.10 uIU/mL (0.4-4. 2) TSH 12/03/2022 [facility] TSH 0.12 uIU/mL Low (0.4-4. 2) TSH 09/04/2022 [facility] TSH 0.67 uIU/mL (0.4-4. 2) Free T4 09/04/2022 [facility] Free T4 0.96 ng/dL (0.70-1 .80) TSH 08/09/2022 [facility] TSH 0.23 uIU/mL Low (0.4-4. 2) Free T3 08/09/2022 [facility] Free T3 4.2 pg/mL (2.3-5. 0) Free T4 08/09/2022 [facility] Free T4 1.19 ng/dL (0.70-1 .80) TSH 04/19/2022 [facility] TSH <0.01 uIU/mL Low (0.4-4. 2) Free T3 04/19/2022 [facility] Free T3 5.0 pg/mL (2.3-5. 0) Free T4 04/19/2022 [facility] Free T4 1.68 ng/dL (0.70-1 .80) TSH 03/22/2022 [facility] TSH <0.01 uIU/mL Low (0.4-4. 2) Free T4 03/22/2022 [facility] Free T4 1.75 ng/dL (0.70-1 .80) Free T3 03/22/2022 [facility] Free T3 6.0 pg/mL High (2.3-5. 0) 1 Reference Range: Adults: 4.2 - 13.0 2 Reference Range: >=20y: 2.0 - 4.4 3 Reference Range: Adults: 55 - 170 4 Reference Range: >=20y: 0.82 - 1.77 5 STANDING ORDER Medical Devices Description No Information Available Encounters Type Date Location Provider Dx Diagnosis Office Visit 06/15/2024 8:45a Main Office Farshad Calderon M.D. E05.00 Thyrotoxicosis w diffuse goiter w/o thyrotoxic crisis E03.9 Hypothyroidism, unsp ecified Assessments Date Code Description Provider 06/15/2024 E05.00 Graves' disease Farshad santos M.D. 06/15/2024 E03.9 Hypothyroidism Farshad dan M.D. Plan of Treatment Future Appointment(s):* 12/21/2024 8:15 am - Farshad Calderon M.D. 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
--- OUTSIDE RECORDS SUMMARY | 2024-06-24 07:49 | XMS_ITS | Clinical Summary ---
Author Organization [facility] Address [address] [place] [id number] Care Team Providers Care Wage And Hour Investigator Name Role Phone Victor Hugo Zuniga MD Primary Care Provider [phone] Allergies Active Allergy Reactions Criticality Noted Date [...] age to complete this topic Care Teams Wage And Hour Investigator Relationship Specialty Start Date End Date Victor Hugo Zuniga MD PCP - General Internal Medicine 03/07/17
--- OUTSIDE RECORDS SUMMARY | 2024-06-24 07:49 | XMS_ITS | Clinical Summary ---
Author Organization [facility] Address [address] [place] [address] Phone Care Team Providers Care Granite Cutter Apprentice Name Role Phone Victor Hugo Zuniga MD Primary Care Provider Allergies Active Allergy Reactions Criticality Noted Date Comments Fexofenadine Rash,Swelling High 03/22/2017 Causes shortness of breath Red Dye 06/15/2024 Some red dyes Sulfamethoxazole-Trimethop rim Rash 03/22/2017 Medications aspirin 81 [...] inhaler inhaler Inhale by mouth. 11/27/2023 Active atorvastatin calcium (ATORVASTATIN ORAL) Take by mouth. Active Active Problems Problem Noted Date Diagnosed Date Ascending aorta dilation (CMS/[facility]ER[facility] V24) Assessment & Plan (06/15/2024 5:26 PM EDT): Her ascending aorta is mildly enlarged, measuring 4.0 cm in 2019, 4.2 cm in both 2022 and 2023, and 4.1 cm in 2024. This slight variation in the past 2 years is likely due to measurement error, suggesting no significant change. The regurgitation remains minimal, with trace amounts noted in some reports and mild amounts in others. Her PFO is not a cause for concern at this time. Continue the current regimen of metoprolol, which effectively manages her tachycardia as long as caffeine intake is monitored and hydration is maintained. Annual echocardiograms are recommended for ongoing monitoring. Orders: ECG 12 lead Transthoracic echocardiogram (TTE) complete with PRN contrast, bubble, strain, and 3D order panel; Future Atherosclerosis 03/06/2022 Overview (06/15/2024): The patient was noted to have a small amount of calcium of the left anterior descending artery. Due to this I would try to get her LDL cholesterol down below 100 mg/dl. She has had no angina and she has had a negative stress test. Assessment & Plan (06/15/2024 5:26 PM EDT): Continue statin therapy with appropriate monitoring. 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 She also has SASHA. Echo has revealed normal LV function and no valvular disease. Pharm MIBI was negative for ischemia. Assessment & Plan (06/15/2024 5:26 PM EDT): Weight, deconditioning and pulm disease are acting in concert. Orders: ECG 12 lead Transthoracic echocardiogram (TTE) complete with PRN contrast, bubble, strain, and 3D order panel; Future Primary osteoarthritis of left knee 12/26/2020 Thymoma 12/21/2019 Overview (10/02/2023): August 2019-- surgery-- Dr Ignacio MGUS (monoclonal gammopathy of unknown significa nce) 12/21/2019 Overview (10/02/2023): IgG kappa monoclonal gammopathy of undetermined significance (MGUS) Follows with Dr. Galo Assessment & Plan (06/15/2024 5:26 PM EDT): Orders: ECG 12 lead Graves disease 12/21/2019 Assessment & Plan (06/15/2024 5:26 PM EDT): Per Dr. Calderon. Orders: ECG 12 lead Encounters Date Type Department Care Team Description 06/15/2024 3:30 PM EDT Office Visit [facility] Cardiology [facility] [address] [place] [address] [place] [phone] Bren Rabago MD Graves disease (Primary Dx); MGUS (monoclonal gammopathy of unknown significance); Dyspnea on exertion; Ascending aorta dilation (CMS/HCC V24); Atherosclerosis 06/02/2024 11:00 AM EDT Ancillary Procedure [facility]iology [facility] [address] [place] [phone] Ascending aorta dilation (CMS/HCC V24) 05/31/2024 12:13 AM EDT - 05/31/2024 2:[address] [facility] [address] [place] [phone] Discharge Disposition: Home or Self Care from Last 3 Months Surgical History Surgery Date Site/Laterality Comments TONSILLECTOMY 1998 PROCEDURE: HISTORICAL TONSILLECTOMY BREAST LUMPECTOMY 1999 Bilateral PROCEDURE: HISTORICAL BREAST LUMPECTOMY; COMMENT: benign BACK SURGERY 2004 PROCEDURE: HISTORICAL BACK SURGERY; COMMENT: disk injury from work EYE SURGERY 2015 PROCEDURE: HISTORICAL EYE SURGERY; COMMENT: Lasik OTHER SURGICAL HISTORY 08/25/2019 PROCEDURE: NV THORACOSCOPY RESEXN THYMUS UNI/BILATERAL KNEE ARTHROSCOPY W/ MENISCAL REPAIR 2019 Left PROCEDURE: NV ARTHROSCOPY KNEE W/MENISCUS RPR MEDIAL/LATERAL Medical History Medical History Date Comments Rheumatoid arthritis (CMS/HC C V24, CMS/HCC V28) DX:Rheumatoid arthritis (HCC ) Family history of breast can cer in [...] Follows with Dr. 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 Family history of cardiovasc ular [...] drink = 0.6 oz pur e alcohol) Rarely/special occasions Comments No Sex and Gender Information Value Date Recorded Sex Assigned at Female 07/04/2022 11:44 AM EDT Legal Sex Female 1:48 PM EST Gender Identity Female 07/04/2022 11:44 AM EDT Sexual Orientation Straight 07/04/2022 11 :44 AM EDT Obstetrics History Last Filed Vital Signs Vital Sign Reading Time Taken Comments Blood Pressure 118/90 06/15/2024 3:27 PM EDT Pulse 62 06/15/2024 3:27 PM EDT Temperature 36.3 ??C (97.3 ??F) 05/31/2024 12:18 AM E DT Respiratory Rate 20 05/31/2024 12:18 AM EDT Oxygen Saturation 98% 06/15/2024 3:27 PM EDT Inhaled Oxygen Concentration - - Weight 129 kg (285 lb 6.4 oz) 06/15/2024 3:27 PM EDT Height 175.3 cm (5' 9 ) 06/15/2024 3:27 PM EDT Body Mass Index 42.15 06/15/2024 3:27 PM EDT Plan of Treatment Upcoming Encounters Date Type Department Care Team (Late st Contact Info) Description 07/23/2024 8:20 AM EDT Office Visit [facility] [address] [facility] [address] [place] [phone] Armand Nascimento MD [address] [facility] [address] [place] [address] 11/23/2024 9:00 AM EDT Office Visit [facility] Hematology Oncology [address] [place] [phone] Kamran-Tai Galo MD [address] [place] [address] Health Maintenance Due Date Last Done Comments Breast Cancer Screening 1965 Hepatitis B Vaccines (1 of 3 - 19+ 3-dose series) 09/17/1986 Cervical Cancer Screening: Pap Smear 09/17/1988 Cholesterol Screening (Lipid Panel) 01/20/2022 Colorectal Cancer Screening: Colonoscopy 01/20/2022 Depression Screening 01/20/2022 HIV Screening 01/20/2022 Hepatitis C Screening 01/20/2022 Social Influencers of Health Screening 01/20/2022 COVID-19 Vaccine (7 - Moderna risk season) 2024 11/24/2023, 11/05/2022, 12/01/2021, Additional history exists DTaP,Tdap,and Td Vaccines (2 - Td or Tdap) 01/30/2034 01/31/2024 MMR Vaccines Aged Out 04/16/2018 No longer eligi ble based on patient's age to complete this topic Zoster Vaccines Completed 02/15/2021, 10/20/2020 Influenza Vaccine Completed 11/24/2023, , 12/01/2021, Additional [...] age to complete this topic Meningococcal B Vaccine Aged Out No l onger eligible based on patient's age to complete this topic RSV Immunization Patients Under 20 months Aged Out No longer eligible based on patient's age to complete this topic Varicella Vaccines Aged Out No longer eligible based on patient's age to complete this topic Procedures Procedure Name Priority Date/Time Associated Diagnosis Comments ECG 12-LEAD Routine 06/15/2024 3:39 PM EDT Graves disease MGUS (monoclonal gammopathy of unknown significance) Dyspnea on exertion Ascending aorta dilation (CMS/HCC V24) Atherosclerosis TRANSTHORACIC ECHOCARDIOGRAM (TTE) COMPLETE Routine 06/02/2024 11:42 AM EDT Ascending aorta dilation (CMS/HCC V24) from Last 3 Months Results * ECG 12 lead (06/15/2024 3:39 PM EDT) Ventricular Rate ECG 62 BPM GEMUSE Atrial Rate 62 BPM GEMUSE P-R Interval 234 ms GEMUSE QRS Duration 104 ms GEMUSE Q-T Interval 400 ms GEMUSE QTc 406 ms GEMUSE P Wave Orting 6 degrees GEMUSE R Orting -34 degrees GEMUSE T Orting -37 degrees GEMUSE ECG Interpretation Sinus rhythm with 1st degree A-V block Left axis deviation Minimal voltage criteria for LVH, may be normal variant Nonspecific ST and T wave abnormality Abnormal ECG When compared with ECG of 25-MAR-2019 16:13, NV interval has increased T wave inversion more evident in Inferior leads Confirmed by BREN RABAGO ([id number]) on 06/15/2024 5:05:31 PM GEMUSE 06/15/2024 3:39 PM EDT 06/15/2024 5:05 PM EDT us Bren Rabago MD ECG ORDERABLES Final Result GEMUSE * (ABNORMAL) TRANSTHORACIC ECHOCARDIOGRAM (TTE) COMPLETE (06/02/2024 11:42 AM EDT) Left Atrium Minor Orting 5.6 cm CV PACS Left Atrium Major Orting 5.7 cm CV PACS LA Area Sys (A2C) 24 cm2 CV PACS LA Area Sys (A4C) 25 cm2 CV PACS LA Volume (BP) 85 mL CV PACS RA Area 11.2 cm2 CV PACS RA 2D Volume 24 mL CV PACS Aortic Sinus Valsalva 3.8 cm CV PACS Ascending Aorta 4.1 cm CV PACS IVC Proximal 2.2 cm CV PACS IVC Proximal 0.5 cm CV PACS IVSD 0.9 0.6 - 0.9 cm CV PACS LVIDD 5.8(A) 3.8 - 5.2 cm CV PACS LVIDS 3.9(A) 2.2 - 3.5 cm CV PACS LVOT Diameter 2.6 cm CV PACS LVOT Mean Akhil 0.6 m/s CV PACS LVOT Mean Grad 2 mmHg CV PACS LVOT Peak VTI 19.2 cm CV PACS LVOT Peak Akhil 1.0 m/s CV PACS LVOT Peak Gradient 4 mmHg CV PACS LVPWD 0.9 0.6 - 0.9 cm CV PACS MV E' Tissue Velocity Lateral 7 cm/s CV PACS MV E' Tissue Velocity Septal 5 cm/s CV PACS LVOT Area 5.3 cm2 CV PACS LVOT Stroke Volume 102 mL CV PACS E Wave Deceleration Time 197 119 - 242 ms CV PACS MV Peak A Akhil 0.55 m/s CV PACS MV Peak E Akhil 0.56 m/s CV PACS PV Acceleration Time 102 ms CV PACS RV Diastolic Basal Dimension 3.4 2.5 - 4.1 cm CV PACS RV S' 11 cm/s CV PACS TAPSE 21 mm CV PACS E/E' Ratio Septal 11 CV PACS E/E' Ratio Averaged 10 CV PACS Relative Wall Thickness ratio 0.31 CV PACS FS 33 % CV PACS LV Mass 2D 203 g CV PACS LVOT flow 318 mL/s CV PACS E/A Ratio 1.0 CV PACS E/E' Ratio Lateral 8 CV PACS BSA 2.52 m2 CV PACS LA Volume Index (BP) 35 mL/m2 CV PACS LVIDD Index 2.41 cm/m2 CV PACS LVIDS Index 1.62 cm/m2 CV PACS LV Mass Index 2D 84 44 - 88 g/m2 CV PACS LVOT Stroke Index 42 mL/m2 CV PACS RA 2D Volume Index 10(A) 15 - 27 mL/m2 CV PACS Ascending Aorta Index 1.70 cm/m2 CV PACS Anatomical Region Laterality Modality Ultrasound Narrative 06/04/2024 8:42 AM EDT ?Left ventricle cavity size is normal. Left ventricular systolic function is in the normal range with an ejection fraction in the 55-70% range. ?No regional LV wall motion abnormalities noted. ?Left ventricle wall thickness is normal. ?Right ventricle cavity is normal. Right ventricular systolic function is normal. ?The Sinus of Valsalva is dilated (3.8 cm). The ascending aorta is dilated (4.1 cm). ?Mild mitral insufficiency Left Ventricle Left ventricle cavity size is normal. Wall thickness is normal. Systolic function is normal with an ejection fraction in the 55-70% range. There are no regional LV wall motion abnormalities. There is no diastolic dysfunction. Right Ventricle Right ventricle cavity appears normal. Systolic function is normal. Left Atrium Left atrium cavity size is normal. There is an atrial septal aneurysm that is highly mobile. Right Atrium Right atrium cavity is normal. IVC/SVC Inferior vena cava structure is normal. RA pressures is estimated to be 8 mmHg (IVC diameter <21 mm and decreases <50% during inspiration). Mitral Valve Mitral valve structure is normal. There is mild annular calcification. There is trace regurgitation. There is no significant stenosis noted. Tricuspid Valve Tricuspid valve structure is normal. Tricuspid regurgitation is inadequate for estimation of right ventricular systolic pressure. There is no significant tricuspid valve stenosis. Aortic Valve The aortic valve is trileaflet. The leaflets are not thickened and exhibit normal excursion. There is no regurgitation or stenosis. Pulmonic Valve The pulmonic valve was not well visualized. No significant pulmonic valve regurgitation. No significant pulmonary valve stenosis noted. Ascending Aorta The Sinus of Valsalva is (3.8 cm). The ascending aorta is (4.1 cm). Pericardium Pericardium appears normal. There is no pericardial effusion. Study Details Overall the study quality was adequate. Victor Hugo Zuniga MD CV ECHO PROCEDURES Final Res ult from Last 3 Months Insurance [employer] Care Teams Granite Cutter Apprentice Relationship Specialty Start Date End Date Victor Hugo Zuniga MD [address] [place] [address] PCP - General Internal Medicine 09/08/14
== END 2024-06-24 07:48 | disposition home or self-care (01) ==
LOC: HO.CT 07:47
PROVIDERS: PCP Internal Medicine; Visit Provider Hospitalist
DX: R07.81 Pleurodynia (principal)
CPT/HCPCS: 71250

== ENCOUNTER → 2024-06-24 07:47 | Outpatient (BNV) | payer OTHER, SELFPAY | PROVIDERS: PCP Internal Medicine; Visit Provider Radiology Diagnostic Radiology | DX: R07.81 Pleurodynia (principal) | CPT/HCPCS: 71250 ==

== ENCOUNTER 2024-08-02 17:36 | Emergency (ER) | payer OTHER, SELFPAY ==
[2024-08-02 17:50] VITALS: BP 143/95; PULSE 67; RESP 14; TEMP 36.5; O2SAT 98; BMI 42.1
--- NOTE | 2024-08-02 17:53 | ED.GENADULT ---
HPI - General Adult General Chief complaint: Epistaxis Stated complaint: nose bleed Time Seen by Provider: 08/02/24 19:12 Source: patient Mode of arrival: ambulatory Limitations: no limitations History of Present Illness ED Provider: Dr. Storm Del Cid HPI narrative: 58-year-old female with a history of asthma, obstructive sleep apnea who presents emergency department for evaluation of nosebleed from her right nostril. Patient states that over the past 6 months she has had at least 3 nose bleeds that seemed to occur every 2 months. She states that she bleeds from the right side of her nose. She states that she has had a large amount of bleeding with blood clots in the past. Patient states that she was in her kitchen cooking when she spontaneously started bleeding out of her right nostril. Patient states that she has been referred to ENT but in his not been able to get an appointment yet. Patient has not had any unusual bleeding. She has not noticed increased bruisability or bleeding from her gums. Patient does have obstructive sleep apnea and uses CPAP with moisturized air. The patient had blood work in May 07 2024 include a CBC and BMP which were unremarkable. Related Data Home Medications ?Medication ?Instructions ?Recorded ?Confirmed aspirin 81 mg tablet,delayed 81 mg PO DAILY 09/14/22 12/24/23 release cholecalciferol (vitamin D3) 125 125 mcg PO DAILY 09/14/22 12/24/23 mcg (5,000 unit) capsule coenzyme Q10 200 mg capsule 200 mg PO DAILY 09/14/22 12/24/23 cyclosporine 0.05 % eye drops in a drp ophthalmic (eye) ONCE 09/14/22 dropperette (Restasis) diclofenac sodium 75 mg 75 mg PO BID PRN 09/14/22 tablet,delayed release lactobacillus combination no.9 4 4,000 mmu cells PO DAILY 09/14/22 12/24/23 billion cell capsule (Adult 50 Plus Probiotic) melatonin 10 mg capsule 10 mg PO BEDTIME PRN 09/14/22 12/24/23 metoprolol tartrate 25 mg tablet 25 mg PO DAILY 09/14/22 12/24/23 multivitamin 1 tab PO DAILY 09/14/22 12/24/23 nystatin 100,000 unit/gram topical topical BID 09/14/22 powder omeprazole 20 mg capsule,delayed 20 mg PO DAILY 09/14/22 12/24/23 release levothyroxine 50 mcg capsule 50 mcg PO DAILY 11/06/22 12/24/23 albuterol sulfate 2.5 mg/3 mL 2.5 mg inhalation Q6H 01/18/23 12/24/23 (0.083 %) solution for nebulization nebulizers 02/06/23 pravastatin 20 mg tablet 20 mg PO DAILY 05/07/23 12/24/23 Previous Rx's ?Medication ?Instructions ?Recorded ipratropium 0.5 mg-albuterol 3 mg 3 ml inhalation BID 90 days #540 mL 03/13/23 (2.5 mg base)/3 mL nebulization soln albuterol sulfate 90 mcg/actuation 2 inh inhalation Q6H PRN shortness 04/20/24 aerosol inhaler of breath or wheezing 30 days #18 grams budesonide 160 mcg-glycopyr 9 2 inh inhalation BID #10.7 grams 04/20/24 mcg-formot 4.8 mcg/actuation HFA inhaler (Think Sky[employer] One[employer]here) Allergies Allergy/AdvReac Type Severity Reaction Status Date / Time fexofenadine (From Marychuy) Allergy Severe Anaphylaxis Verified 08/02/24 17:53 sulfamethoxazole (From Allergy Severe Rash Verified 08/02/24 17:53 Bactrim) trimethoprim (From Bactrim) Allergy Severe Rash Verified 08/02/24 17:53 PMFSH Past Medical History Medical History (Updated 08/02/24 @ 19:57 by Storm Del Cid MD) Pleuritic chest pain Asthma [id number] syndrome SASHA on CPAP Wheezing Dyspnea Social History Social History Patient Tobacco Use Status: Never used Tobacco Advance Directives: No Advance Directives Information Provided: No Advance Directives on File: No Do you have a plan to hurt others: No Plan Physical Exam ED Vital Signs: Vital Signs - 24 hr 08/02/24 17:50 08/02/24 20:05 Temperature 97.7 F 97.7 F Pulse Rate 67 67 Respiratory Rate 14 14 Blood Pressure 143/95 H 143/95 H Pulse Oximetry 98 98 Oxygen Delivery Method Room Air Room Air BMI result Body Mass Index 42.1 Vital signs revealed an elevated blood pressure otherwise unremarkable. Exam: Nose: Left nostril no bleeding. Right nostril bright red blood coming from the lateral nasal turbinate, I do not think that the patient has a nasal polyp, both nostrils look symmetric. No bleeding from the septum Course Course Course Narrative: RME: 58 yold female presents to the ED for right nares nose bleed that just began while cooking. Patient states he has had 3rd episode of nosebleed. Patient denies any recent trauma, sneezing hard or picking nose. Patient states she is on aspirin. Patient is brought back to the ED immediately Medical Decision Making Medical Decision Making MDM Narrative: 58-year-old female with a history of asthma, obstructive sleep apnea who presents emergency department for evaluation of nosebleed from her right nostril. Patient states that over the past 6 months she has had at least 3 nose bleeds that seemed to occur every 2 months. She states that she bleeds from the right side of her nose. She states that she has had a large amount of bleeding with blood clots in the past. Patient states that she was in her kitchen cooking when she spontaneously started bleeding out of her right nostril. Patient states that she has been referred to ENT but in his not been able to get an appointment yet. Patient has not had any unusual bleeding. She has not noticed increased bruisability or bleeding from her gums. Patient does have obstructive sleep apnea and uses CPAP with moisturized air. The patient had blood work in May 07 2024 include a CBC and BMP which were unremarkable. Vital signs revealed an elevated blood pressure otherwise unremarkable. Patient has bleeding from the right nostril and her right lateral nasal turbinate appears to be inflamed with no obvious bleeding source. I do not think that she has nasal polyps at this time. Differential diagnosis: ?Includes but is not limited to epistaxis secondary to inflammation, nasal polyps Course: 19:39 The patient is bleeding from her lateral nasal turbinate of the right nostril and I do not think that she has nasal polyps or an area that needs to be cauterized. A nasal clip was placed on the patient's nose and I will re-evaluate her in 20 minutes. 19:57 The patient does seem to have decreased bleeding from the anterior lateral aspect of her right nostril. I advised the patient to continue to use the nose clip for another 60 minutes and to use the nose clip if she has recurrent bleeding. She was referred to Dr. Pablo for follow-up Discharge Plan Discharge Clinical Impression: Right-sided epistaxis Patient Disposition: Home, Self-Care Instructions: Nosebleed (ED) Additional Instructions: Your nose bleed is very close to the front of your nose (anterior lateral). There does not look like there is a vessel that needs to be cauterized and that this nose bleed would be better treated with pressure to the front of your nose. Keep the nose clip on for 60 minutes and hopefully this will stop the bleeding. If the bleeding recurs use the nose clip again for at least 20 minutes. Nosebleeds often recur since the blood vessels are very close to the surface of the nose and once they get irritated they can bleed. I do not think that you have a nasal polyp as the cause of your bleeding. I do not think that you have a bleeding disorder causing the nosebleeds since you do not bruises or bleeding from your gums when you brush your teeth. Call Dr. Pablo (are ears nose and throat doctor) to see if you can make a follow-up appointment with his office. Please return to the emergency department if your symptoms get worse or if you develop any symptoms that are concerning to you. Prescriptions: No Action ipratropium-albuterol 0.5 mg-3 mg(2.5 mg base)/3 mL solution for nebulization 3 ml inhalation BID 90 Days Qty: 540 3RF albuterol sulfate 90 mcg/actuation HFA aerosol inhaler 2 inh inhalation Q6H PRN (Reason: shortness of breath or wheezing) 30 Days Qty: 18 34RF Breztri Aerosphere 160-9-4.8 mcg/actuation HFA aerosol inhaler 2 inh inhalation BID Qty: 10.7 5RF pravastatin 20 mg tablet 20 mg PO DAILY albuterol sulfate 2.5 mg /3 mL (0.083 %) solution for nebulization 2.5 mg inhalation Q6H cyclosporine [Restasis] 0.05 % dropperette ophthalmic (eye) ONCE metoprolol tartrate 25 mg tablet 25 mg PO DAILY diclofenac sodium 75 mg tablet,delayed release (DR/EC) 75 mg PO BID PRN nystatin 100,000 unit/gram powder topical BID aspirin 81 mg tablet,delayed release (DR/EC) 81 mg PO DAILY cholecalciferol (vitamin D3) 125 mcg (5,000 unit) capsule 125 mcg PO DAILY Adult 50 Plus Probiotic 4 billion cell capsule 4,000 mmu cells PO DAILY Rx Instructions: administer with a meal omeprazole 20 mg capsule,delayed release(DR/EC) 20 mg PO DAILY multivitamin Tablet 1 tab PO DAILY coenzyme Q10 200 mg capsule 200 mg PO DAILY melatonin 10 mg capsule 10 mg PO BEDTIME PRN levothyroxine 50 mcg capsule 50 mcg PO DAILY (DME) nebulizers Misc See Rx Instructions .ROUTE Rx Instructions: As directed Referrals: Sin Pablo [Physician, Ear, Nose, Throat] Referral Note: Right anterior lateral epistaxis, treated with nose clip, no obvious source to cauterize, continues to have recurrent bleeding over the last 6 months. Interventions: ED Discharge Assessment Last Done: 08/02/24 20:05 Discharge Date/Time: 08/02/24 20:05 Print Language: Syriac
--- OUTSIDE RECORDS SUMMARY | 2024-08-02 18:05 | XMS_ITS | Clinical Summary ---
Author Organization [facility] Address [address] [place] [id number] Care Team Providers Care Deployment Manager Name Role Phone Victor Hugo Zuniga MD Primary Care Provider [phone] Allergies Active Allergy Reactions Criticality Noted Date [...] 73 12/26/2022 9:18 AM EST Temperature 36.8 C (98.2 F) 12/26/2022 9:18 AM EST Respiratory Rate - - Oxygen Saturation 95% [...] risk series) 04/02/2020 03/05/2020, 02/06/2020 Influenza Vaccine (Season Ended) 2024 11/06/2017 RSV Ped < 20 months Aged Out No longe r eligible based on patient's age to complete this topic Care Teams Deployment Manager Relationship Specialty Start Date End Date Victor Hugo Zuniga MD PCP - General Internal Medicine 03/07/17
--- NOTE | 2024-08-02 19:28 | PC.NURSE ---
Requesting something to drink. Message sent to Dr. Del Cid, awaiting response.
[2024-08-02 20:05] VITALS: BP 143/95; PULSE 67; RESP 14; TEMP 36.5; O2SAT 98
== END 2024-08-02 20:05 | disposition home or self-care (01) ==
PROVIDERS: Emergency Provider Emergency Medicine Emergency Medical Services; PCP Internal Medicine
DX: R04.0 Epistaxis (principal); Z79.899 Other long term (current) drug therapy
CPT/HCPCS: 99282

== ENCOUNTER 2024-08-04 08:23 | Outpatient (AMB) | payer OTHER, SELFPAY ==
[2024-08-04 08:28] VITALS: BP 126/74; PULSE 68; O2SAT 95; BMI 42.0
--- NOTE | 2024-08-04 08:28 | A.OFFVIS_ITS ---
Vital Signs 08/04/24 08:28 Height 5 ft 9 in Weight 284 lb 6.341 oz BMI 42.0 BP 126/74 Blood Pressure Location Lt brachial Position Sitting Pulse 68 Pulse Source Pulse Oximeter Pulse Oximetry (%) 95 Oxygen Delivery Method Room Air Intake Visit Reasons: Dyspnea/CXR Follow Up Historical Guide Required: No Accompanied by: Self / Same As Patient Allergies fexofenadine (From Marychuy) Allergy (Severe, Verified 08/04/24 08:31) Anaphylaxis sulfamethoxazole (From Bactrim) Allergy (Severe, Verified 08/04/24 08:31) Rash trimethoprim (From Bactrim) Allergy (Severe, Verified 08/04/24 08:31) Rash HPI Comments Details: The patient is a 58 year woman with worsening dyspnea symptoms. The patient states that she was in usual state health until at the after developing COVID she started noticing worsening respiratory symptoms. She did have a full cardiac evaluation. We will request those results at this time. In addition to that, the patient did have a pulmonary evaluation including PFTs and CT scan of the chest. Will also request those results. The patient feels like she has been getting worse. She gets short of breath even with mild activities of daily living. She has not responded to the current respiratory regimen. On examination she does have some end-expiratory wheezing on forced exhalation. In doing a brief walking oximetry the patient did desaturate down to about 94% And also had evidence of dyspnea. In addition to the dyspnea the patient also carries a diagnosis of sleep apnea. She has been on CPAP for many years. The therapy has been affecting beneficial. She does follow-up with [facility]. 11/06/2022 the patient is here for a pulmonary follow-up visit. Overall the patient is doing better. She still having dyspnea on exertion but overall a little improved. She is responding well to the Symbicort. Sometimes is causing some raspiness of her voice which she does not like. She wishes to have a rescue inhaler that she can use as needed. In addition to that the patient did undergo pulmonary function studies. We did review the results. 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 She also has noted that her pre bronchodilator numbers were actually better than her post. Therefore the some degree of musculoskeletal disease or fatigability of the muscles. The patient does have a scheduled CT scan with her thoracic surgeon regarding her thymus. She denies ever been diagnosed with myasthenia gravis. In addition to this the patient did have recent breast surgery. This was benign mass that was taken care of. 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 Therefore, I do believe that starting pulmonary rehabilitation at this time with very important. 01/18/2023 the patient is here for a sick visit. Apparently she was exposed to sick contacts sometime Thanksgiving. After she developed fever and worsening cough. Subsequently after that her asthma became very active with having significant chest tightness and wheezing. She went to an urgent care and was given prednisone. She was also given a Z-Andrey. The patient is no better and she did follow-up with primary care doctor also provide her additional steroids. Ultimately the patient still not improve and she decided to come into the ER. In the ER the patient did have blood work in addition to swap. Negative for RSV. COVID and flow. Although this is about a week after symptoms started so the therefore explained to her that is less likely to become positive at this point. The patient had a CTA as well which I personally reviewed. No evidence of any active pulmonary disease. The airways look intact. Some mosaic pattern suggesting air trapping. She also has an incidental finding of a simple says some left kidney. In the office she did have significant coughing nonproductive although at times it can be productive for her with yellowish phlegm. She was given 2 DuoNeb treatments any improved her wheezing and her cough significantly. The patient will start a course of doxycycline. She will complete the prednisone and she will also switch her Breo over to breztri. Apparently she had responded well to the Symbicort but then because of insurance issues with switched over to Breo and she does not find Breo working well for her. She also is irritated by the powder. 02/06/2023 the patient is finally feeling better. She completed the antibiotics and also had been using nebulizer several times a day. She did respond better to the DuoNeb as opposed to the albuterol. Denied any adverse effects from that. She did not require the additional prednisone which is reassuring. She is back to her baseline. She is using the Breztri inhaler. She has noticing a little hoarseness. Since she is doing better she can decrease the amount of the medication to 1 puff twice a day to see if this improves her hoarseness. The patient is ready to go back to pulmonary rehabilitation. In the office we did fill out her FMLA papers and also provide her with a letter to go back to pulm onary rehabilitation without any restrictions. 05/07/2023 the patient is here for pulmonary follow-up visit. The patient overall has been feeling better. She was able to wean off the maintenance inh aler. Although then she was working on her home and she was exposed to fumes and the patient had 2 restarted. The patient went back to pulmonary rehabilitation. There was an issue with delay in therefore she was not able to go back. Now she is back and she is going to finish program. She also has a CPAP. The CPAP therapy has been affecting beneficial. Was adjusted during the last visit. The therapy has been affecting beneficial. She does use it for more than 4 hours a night. She does get supplies from [facility]. She uses the nasal pillows. Will go ahead and send for supplies and request access to her machine to adjusted if needed. 12/24/2023 the patient is here for a pulmonary follow-up visit. Overall she is doing well. She continues uses CPAP every night. APAP 7-11. The pressure seemed to be good. AHI is down to 1. She does use it for more than 4 hours a night. He has been very affecting beneficial. She did follow-up with cardiology and cardiac issues are stable which is reassuring. She is hoping to lose weight and hopefully get off the CPAP. I did encourage her to do so but sometimes is not so much about the weight but about the anatomy of the neck. Will repeat her sleep study when she gets to her ideal weight. In the meantime she has been having issues with some wheezing and some shortness of breath and chest tightness. [id number] severity. The patient has stopped using the rescue inhaler. She can go ahead and restarted use it as needed. We did review her CT scan of the chest that she had in 01/30/2023. It was a CTA. I did review the images with her. She does have a 3 mm pulmonary nodule that is very obvious on the left hemithorax. Unfortunately was not read on the CT scan report. Will go ahead and assess to see if she has any CT scans from [facility] so we can compare. If the nodule is new or if we do not have any comparisons then will have to repeat a new CT scan sometime in the spring. 05/07/2024 the patient is here for a a sick visit. Apparently she started developing pleuritic chest pain. Feels like a burning sensation. Moderate severity. Mainly when she is needs his and coughs. Sometimes if she does take a deep breath it does bother her. Mainly substernal area. It is did reproducible when pressing on to the costochondral joints. The patient is also having shortness of breath. Primarily chest tightness and coughing. The Breztri inhaler does provide some relief. She is having some lower extremity edema as well. Denies any history of blood clots. The patient also has a history of arthritis and she does take Salvador 2 inhibitors. She did have a chest x-ray which I personally reviewed. Some haziness around the bronchovascular bundles. Suggesting some small airways disease. No effusions. Based on her discomfort will go ahead and request blood work including a D-dimer. This elevated she is going to have to get a CTA. The patient also is going to have a cardiology evaluation and will have an echocardiogram in the next few weeks. The patient will return in 3 months with PFTs. In the meantime she is going to continue on the Breztri. 08/04/2024 the patient is here for a pulmonary follow-up visit. Overall she is doing okay. Although she has had some issues with epistaxis. She went to the ER where she was noted to have an anterior bleed. She appears to have an ulceration of her right nostril. Currently not bleeding. I did give her some Bactroban to the nose. She can also try some Afrin as needed if it starts bleeding. In the meantime will place a referral in to ENT specially since she needs to be able to use her CPAP and the bleeding can be problematic specially if she is sleeping. The patient overall is doing okay from a respiratory status. She continues on the Breztri which is effective in beneficial. She will continue it for now. She also did have a CT scan of the chest which we personally reviewed and also compared to a CAT scan that she had back in 2022. She appears to have a 5 mm pulmonary nodule in the left lower lobe that appears to be enlarging. 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 And I explained to her that even benign tumors can grow. Therefore will continue to monitor this closely if it grows greater than 8 mm will consider a PET scan. If it has any concerning find ings we can also consider resection. The patient otherwise is doing okay will follow-up in 6 months after her CAT scan. If she has any issues prior to this she will call for an earlier assessment. [facility] Medical History (Updated 08/04/24 @ 10:31 by Gatito Collins MD) Pulmonary nodules Epistaxis Pleuritic chest pain Asthma [id number] syndrome SASHA on CPAP Wheezing Dyspnea Social History Patient Tobacco Use Status: Never used Tobacco Review of Systems Const Denies difficulty sleeping, Denies fever(s) and Denies malaise ENT Reports epistaxis and Reports nasal congestion Card Denies chest pain and Reports dyspnea on exertion Resp Denies chest congestion, Reports cough, Reports pain on inspiration, Reports pain with cough, Reports dyspnea on exertion and Reports wheezing GI Reports no additional complaints Musc Reports no additional complaints Skin/Breast Denies rash Neuro Reports no additional complaints Psych Denies anxiety Al/Lymph Denies lymphadenopathy Aller/Immun Reports wheezing Physical Exam Vital Signs: Last Vital Signs Pulse 68 08/04/24 08:28 BP 126/74 08/04/24 08:28 Pulse Ox 95 08/04/24 08:28 Oxygen Delivery Method Room Air 08/04/24 08:28 BMI result Body Mass Index 42.0 Const General: comfortable HEENT Head: Yes normocephalic General nose exam: Abnormal mucous membranes and turbinates present and Epistax is present (area of ulceration on the right nares medially, not bleeding at this time) Neck Neck: Yes supple Chest Chest palpation & inspection: tenderness costochondral junction Resp Effort & Inspection: normal respiratory effort, no cough and No prolonged expiratory phase Auscultation: no rales, no rhonchi, no wheezes and diminished lung sounds Cardio Rate: regular rate Rhythm: regular rhythm Heart sounds: S1 normal heart sound present and S2 normal heart sound present GI Palpation (GI): Soft to palpation Skin General skin exam: no rashes or lesions noted Extrem General: Yes no clubbing, cyanosis or edema Assessment & Plan Assessment & Plan (1) Dyspnea: Code(s): R06.00 - Dyspnea, unspecified Category: Medical Qualifiers: Dyspnea type: dyspnea on exertion Qualified Code(s): R06.09 - Other forms of dyspnea (2) SASHA on CPAP: Code(s): G47.33 - Obstructive sleep apnea (adult) (pediatric) Category: Medical (3) Asthma: Code(s): J45.909 - Unspecified asthma, uncomplicated Category: Medical Qualifiers: Asthma complication type: uncomplicated Asthma persistence: persistent Asthma severity: moderate Qualified Code(s): J45.40 - Moderate persistent asthma, uncomplicated (4) Epistaxis: Code(s): R04.0 - Epistaxis Category: Medical (5) Pulmonary nodules: Code(s): R91.8 - Other nonspecific abnormal finding of lung field Category: Medical Plan continue Breztri BID ALFREDO as needed continue nebulizer 2-4 times a day as needed Cont APAP 7-11, requesting supplies from [facility], provided airtouch insert CT chest with multiple nodules, but, one nodusle in the LLL appears to be larger 3->5mm ?hamartoma ENT referral bactroban to affected area F/U [address] chest Orders: Referrals Ear/Nose/Throat Referral R04.0 - Epistaxis Medications: New mupirocin 2% (Centany) 1 appl topical TID 22 grams 0RF 10 days Coding Level of Care Code Est Pt Level 4 (18331) Complex EM visit Add On G2211 Diagnoses Dyspnea on exertion R06.09 Dyspnea type: dyspnea on exertion SASHA on CPAP G47.33 Moderate persistent asthma without complication J45.40 Asthma complication type: uncomplicated Asthma persistence: persistent Asthma severity: moderate Epistaxis R04.0 Pulmonary nodules R91.8 Time Spent (min) 17
--- OUTSIDE RECORDS SUMMARY | 2024-08-04 08:36 | XMS_ITS | Clinical Summary ---
Author Organization [facility] Address [address] [place] [address] Care Team Providers Care Maintenance Worker Name Role Phone Victor Hugo Zuniga MD Primary Care Provider [phone] Allergies Active Allergy Reactions Criticality Noted Date [...] age to complete this topic Care Teams Maintenance Worker Relationship Specialty Start Date End Date Victor Hugo Zuniga MD PCP - General Internal Medicine 03/07/17
== END 2024-08-04 08:55 | disposition home or self-care (01) ==
PROVIDERS: PCP Internal Medicine; Visit Provider Hospitalist
DX: R06.09 Other forms of dyspnea (principal); G47.33 Obstructive sleep apnea (adult) (pediatric); J45.40 Moderate persistent asthma, uncomplicated; R04.0 Epistaxis; R91.8 Other nonspecific abnormal finding of lung field
CPT/HCPCS: 99214; G2211

== ENCOUNTER 2025-01-26 08:50 | Outpatient (AMB) | payer OTHER, SELFPAY ==
--- NOTE | 2025-01-26 08:52 | A.OFFVIS_ITS ---
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 The patient states that she was in usual state health until at the after developing COVID she started noticing worsening respiratory symptoms. She did have a full cardiac evaluation. We will request those results at this time. In addition to that, the patient did have a pulmonary evaluation including PFTs and CT scan of the chest. Will also request those results. The patient feels like she has been getting worse. She gets short of breath even with mild activities of daily living. She has not responded to the current respiratory regimen. On examination she does have some end-expiratory wheezing on forced exhalation. In doing a brief walking oximetry the patient did desaturate down to about 94% And also had evidence of dyspnea. In addition to the dyspnea the patient also carries a diagnosis of sleep apnea. She has been on CPAP for many years. The therapy has been affecting beneficial. She does follow-up with [facility]. 11/06/2022 the patient is here for a pulmonary follow-up visit. Overall the patient is doing better. She still having dyspnea on exertion but overall a li ttle improved. She is responding well to the Symbicort. Sometimes is causing some raspiness of her voice which she does not like. She wishes to have a rescue inhaler that she can use as needed. In addition to that the patient did undergo pulmonary function studies. We did review the results. 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 She also has noted that her pre bronchodilator numbers were actually better than her post. Therefore the some degree of musculoskeletal disease or fatigability of the muscles. The patient does have a scheduled CT scan with her thoracic surgeon regarding her thymus. She denies ever been diagnosed with myasthenia gravis. In addition to this the patient did have recent breast surgery. This was benign mass that was taken care of. 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 Therefore, I do believe that starting pulmonary rehabilitation at this time with very important. 01/18/2023 the patient is here for a sick visit. Apparently she was exposed to sick contacts sometime Thanksgiving. After she developed fever and worsening cough. Subsequently after that her asthma became very active with having significant chest tightness and wheezing. She went to an urgent care and was given prednisone. She was also given a Z-Andrey. The patient is no better and she did follow-up with primary care doctor also provide her additional steroids. Ultimately the patient still not improve and she decided to come into the ER. In the ER the patient did have blood work in addition to swap. Negative for RSV. COVID and flow. Although this is about a week after symptoms started so the therefore explained to her that is less likely to become positive at this point. The patient had a CTA as well which I personally reviewed. No evidence of any active pulmonary disease. The airways look intact. Some mosaic pattern suggesting air trapping. She also has an incidental finding of a simple says some left kidney. In the office she did have significant coughing nonproductive although at times it can be productive for her with yellowish phlegm. She was given 2 DuoNeb treatments any improved her wheezing and her cough significantly. The patient will start a course of doxycycline. She will complete the prednisone and she will also switch her Breo over to breztri. Apparently she had responded well to the Symbicort but then because of insurance issues with switched over to Breo and she does not find Breo working well for her. She also is irritated by the powder. 02/06/2023 the patient is finally feeling better. She completed the antibiotics and also had been using nebulizer several times a day. She did respond better to the DuoNeb as opposed to the albuterol. Denied any adverse effects from that. She did not require the additional prednisone which is reassuring. She is back to her baseline. She is using the Breztri inhaler. She has noticing a little hoarseness. Since she is doing better she can decrease the amount of the medication to 1 puff twice a day to see if this improves her hoarseness. The patient is ready to go back to pulmonary rehabilitation. In the office we did fill out her FMLA papers and also provide her with a letter to go back to pulmonary rehabilitation without any restrictions. 05/07/2023 the patient is here for pulmonary follow-up visit. The patient overall has been feeling better. She was able to wean off the maintenance inhaler. Although then she was working on her home and she was exposed to fumes and the patient had 2 restarted. The patient went back to pulmonary rehabilitation. There was an issue with delay in therefore she was not able to go back. Now she is back and she is going to finish program. She also has a CPAP. The CPAP therapy has been affecting beneficial. Was adjusted during the last visit. The therapy has been affecting beneficial. She does use it for more than 4 hours a night. She does get supplies from [facility]. She uses the nasal pillows. Will go ahead and send for supplies and request access to her machine to adjusted if needed. 12/24/2023 the patient is here for a pulmonary follow-up visit. Overall she is doing well. She continues uses CPAP every night. APAP 7-11. The pressure seemed to be good. AHI is down to 1. She does use it for more than 4 hours a night. He has been very affecting beneficial. She did follow-up with cardiology and cardiac issues are stable which is reassuring. She is hoping to lose weight and hopefully get off the CPAP. I did encourage her to do so but s ometimes is not so much about the weight but about the anatomy of the neck. Will repeat her sleep study when she gets to her ideal weight. In the meantime she has been having issues with some wheezing and some shortness of breath and chest tightness. [id number] severity. The patient has stopped using the rescue inhaler. She can go ahead and restarted use it as needed. We did review her CT scan of the chest that she had in 01/30/2023. It was a CTA. I did review the images with her. She does have a 3 mm pulmonary nodule that is very obvious on the left hemithorax. Unfortunately was not read on the CT scan report. Will go ahead and assess to see if she has any CT scans from [facility] so we can compare. If the nodule is new or if we do not have any comparisons then will have to repeat a new CT scan sometime in the spring. 05/07/2024 the patient is here for a a sick visit. Apparently she started developing pleuritic chest pain. Feels like a burning sensation. Moderate severity. Mainly when she is needs his and coughs. Sometimes if she does take a deep breath it does bother her. Mainly substernal area. It is did reproducible when pressing on to the costochondral joints. The patient is also having shortness of breath. Primarily chest tightness and coughing. The Breztri inhaler does provide some relief. She is having some lower extremity edema as well. Denies any history of blood clots. The patient also has a history of arthritis and she does take Salvador 2 inhibitors. She did have a chest x-ray which I personally reviewed. Some haziness around the bronchovascular bundles. Suggesting some small airways disease. No effusions. Based on her discomfort will go ahead and request blood work including a D-dimer. This elevated she is going to have to get a CTA. The patient also is going to have a cardiology evaluation and will have an echocardiogram in the next few weeks. The patient will return in 3 months with PFTs. In the meantime she is going to continue on the Breztri. 08/04/2024 the patient is here for a pulmonary follow-up visit. Overall she is doing okay. Although she has had some issues with epistaxis. She went to the ER where she was noted to have an anterior bleed. She appears to have an ulceration of her right nostril. Currently not bleeding. I did give her some Bactroban to the nose. She can also try some Afrin as needed if it starts bleeding. In the meantime will place a referral in to ENT specially since she needs to be able to use her CPAP and the bleeding can be problematic specially if she is sleeping. The patient overall is doing okay from a respiratory status. She continues on the Breztri which is effective in beneficial. She will continue it for now. She also did have a CT scan of the chest which we personally reviewed and also compared to a CAT scan that she had back in 2022. She appears to have a 5 mm pulmonary nodule in the left lower lobe that appears to be enlarging. 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 And I explained to her that even benign tumors can grow. Therefore will continue to monitor this closely if it grows greater than 8 mm will consider a PET scan. If it has any concerning findings we can also consider resection. The patient otherwise is doing okay will follow-up in 6 months after her CAT scan. If she has any issues prior to this she will call for an earlier assessment. 01/26/2025 the patient is here for pulmonary follow-up visit. Overall the patient has been doing okay. She did follow-up with ENT she did get cautery to the nose and therefore she is not bleeding anymore which is reassuring. She is using saline gel with some relief. She also continues use her CPAP at nighttim e. CPAP therapy continues to be affecting beneficial she does use it for more than 4 hours a night. She will continue with the therapy. From an asthma standpoint the patient is doing well with her respiratory treatments. We did review her last CT scan of the chest was back in June 2024 demonstrating 9 mm pulmonary nodule. Among other nodules. Will plan to repeat the CAT scan June 2025. Will follow up sometime after that. 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 SASHA on CPAP Wheezing Dyspnea Social History Patient Tobacco Use Status: Never used Tobacco Review of Systems Const Denies difficulty sleeping, Denies fever(s) and Denies malaise ENT Reports epistaxis and Reports nasal congestion Card Denies chest pain and Reports dyspnea on exertion Resp Denies chest congestion, Reports cough, Denies pain on inspiration, Denies pain with cough, Reports dyspnea on exertion and Reports wheezing GI Reports no additional complaints Musc Reports no additional complaints Skin/Breast Denies rash Neuro Reports no additional complaints Psych Denies anxiety Al/Lymph Denies lymphadenopathy Aller/Immun Reports wheezing Physical Exam Vital Signs: Last Vital Signs Pulse 60 01/26/25 08:53 BP 110/80 01/26/25 08:53 BMI result Body Mass Index 42.0 Const General: comfortable HEENT Head: Yes normocephalic General nose exam: Abnormal mucous membranes and turbinates present and Epistaxis present (area of ulceration on the right nares medially, not bleeding at this time) Neck Neck: Yes supple Chest Chest palpation & inspection: normal inspection of the chest Resp Effort & Inspection: normal respiratory effort, no cough and No prolonged expiratory phase Auscultation: no rales, no rhonchi, no wheezes and diminished lung sounds Cardio Rate: regular rate Rhythm: regular rhythm Heart sounds: S1 normal heart sound present and S2 normal heart sound present GI Palpation (GI): Soft to palpation Skin General skin exam: no rashes or lesions noted Extrem General: Yes no clubbing, cyanosis or edema Assessment & Plan Assessment & Plan (1) Dyspnea: Code(s): R06.00 - Dyspnea, unspecified Category: Medical Qualifiers: Dyspnea type: dyspnea on exertion Qualified Code(s): R06.09 - Other forms of dyspnea (2) SASHA on CPAP: Code(s): G47.33 - Obstructive sleep apnea (adult) (pediatric) Category: Medical (3) Asthma: Code(s): J45.909 - Unspecified asthma, uncomplicated Category: Medical Qualifiers: Asthma complication type: uncomplicated Asthma persistence: persistent Asthma severity: moderate Qualified Code(s): J45.40 - Moderate persistent asthma, uncomplicated (4) Pulmonary nodules: Code(s): R91.8 - Other nonspecific abnormal finding of lung field Category: Medical Plan continue Breztri BID ALFREDO as needed continue nebulizer 2-4 times a day as needed Cont APAP 7-11, requesting supplies from [facility], [facility], provided airtouch insert CT chest with multiple nodules, but, one nodusle in the LLL appears to be larger 3->5mm ?hamartoma 06/2025 saline gel F/U 6-[address] chest Orders: Orders CT chest wo IV con 06/11/25 R91.8 - Other nonspecific abnormal finding of lung field Coding Level of Care Code Est Pt Level 4 (27197) Diagnoses Dyspnea on exertion R06.09 Dyspnea type: dyspnea on exertion SASHA on CPAP G47.33 Moderate persistent asthma without complication J45.40 Asthma complication type: uncomplicated Asthma persistence: persistent Asthma severity: moderate Pulmonary nodules R91.8 Time Spent (min) 17
[2025-01-26 08:53] VITALS: BP 110/80; PULSE 60; BMI 42.0
--- OUTSIDE RECORDS SUMMARY | 2025-01-26 09:39 | XMS_ITS ---
Author Name [facility] Organization Unknown Problems Problem Status Onset Date Problem Type Date of Resoluti on Source Epistaxis active [facility]
--- OUTSIDE RECORDS SUMMARY | 2025-01-26 09:39 | XMS_ITS | Clinical Summary ---
Author Organization [facility] Address [address] [address] Phone Care Team Providers Care [employer] Nurse Name Role Phone Victor Hugo Zuniga MD Primary Care Provider + [phone] Allergies Active Allergy Reactions Criticality Noted Date Comments Fexofenadine Anaphylaxis High 03/22/2017 Sulfamethoxazole-Trimethoprim Itching,Rash Low 10/2017 Medications omeprazole (PRILOSEC) 20 MG capsule Take 20 mg by mouth daily. Active metoprolol succinate (TOPROL-XL) 25 MG 24 hr tablet Take 12.5 mg by mouth. Active therapeutic multivitamin tablet Take 1 tablet by mouth daily. Active Lactobacillus acidophilus (PROBIOTIC ORAL) Take by mouth. Active coenzyme Q10 100 mg capsule Take 200 mg by mouth daily. Active calcium carbonate 500 mg (200 mg elemental) chewable tablet Take 1 tablet by mouth daily as needed for heartburn. Active melatonin 10 mg Cap Take by mouth nightly at bedtime. Active aspirin 81 MG EC tablet Take 81 mg by mouth daily. Active cholecalciferol (VITAMIN D3) 25 MCG (1,000 unit) tablet Take 1,000 Units by mouth daily. Active albuterol 90 mcg/actuation inhaler Inhale 2 puffs into the lungs every 6 (six) hours as needed for wheezing. Active metaxalone (SKELAXIN) 800 MG tablet Take 800 mg by mouth as needed for pain (specific location in comments). Active budesonide/glycopy r/formoterol (BREZTRI AEROSPHERE INHL) Inhale into the lungs. Active MIEBO, PF, 100 % Drop INSTILL 1 DROP INTO AFFECTED EYE(S) BY OPHTHALMIC ROUTE UP TO 4 TIMES PER DAY 5 Active diclofenac sodium (VOLTAREN) 75 MG EC tabletIndications: Primary osteoarthritis involving multiple joints Take 1 tablet (75 mg total) by mouth 2 (two) times a day as needed (moderate pain). Take 1 tablet twice daily with food as needed 180 tablet 1 5 Active Active Problems Problem Noted Date Diagnosed Date Primary osteoarthritis involving multiple joints 09/19/2022 Assessment & Plan (09/23/2023 10:41 AM EDT): Osteoarthritis in multiple joints most bothersome in her weightbearing joints. She has also developed right ankle pain exacerbated by her fallen arches. Advised her to see a machine tool operator. She should continue with diclofenac but try and take it only when she absolutely needs it. Advised weight loss. Sent her for some labs today. Assessment & Plan (03/25/2023 9:12 AM EST): Osteoarthritis in multiple joints with stiffness but no current swelling. Encouraged her to continue losing some weight. She can continue with diclofenac 75 mg 1-2 times a day as needed. She does not need refills at this time. She will have labs done with Dr. Zuniga sometime this summer. Assessment & Plan (09/19/2022 9:08 AM EDT): Degenerative osteoarthritis in multiple areas, most bothersome in her knees and lower back. Advised her to lose some weight. She can continue with diclofenac 1 or 2 tablets a day as needed with food. She does not need any steroid injections today. She will have basic lab work drawn by Dr. Zuniga in the next few weeks. Family History Medical History Relation Comments Cancer Mother Diabetes Mother Relation Status Comments Father Mother Alive Social History Tobacco Use Types Packs/Day Years Used Date Smoking Tobacco: Never Smokeless Tobacco: Never Alcohol Use Standard Drinks/Week Comments Yes 0 (1 standard drink = 0.6 oz pur e alcohol) occasionally Education Answer Date Recorded Are you interested in more education? Not on vida e 06/09/2022 Are you concerned about learning? Not on file 06/09/2022 No 06/09/2022 No 06/09/2022 Digital Access Answer Date Recorded No 07/04/2022 No 07/04/2022 Reliable internet access at home? Not on file 07/04/2022 Device with a working camera? Not on file Comments Unknown Sex and Gender Information Value Date Recorded Sex Assigned at Female 08/29/2020 2:20 PM EDT Legal Sex Female 2:03 PM EDT Gender Identity Female 08/29/2020 2:20 PM EDT Sexual Orientation Straight 08/29/2020 2: 20 PM EDT Last Filed Vital Signs Vital Sign Reading Time Taken Comments Blood Pressure 112/76 09/15/2024 7:58 AM EDT Pulse 70 09/15/2024 7:58 AM EDT Temperature - - Respiratory Rate - - Oxygen Saturation 98% 09/15/2024 7:58 AM EDT Inhaled Oxygen Concentration - - Weight 128.8 kg (284 lb) 09/15/2024 7:58 AM EDT Height 175.3 cm (5' 9 ) 09/23/2023 8:32 AM EDT Body Mass Index 41.94 09/23/2023 8:32 AM EDT Plan of Treatment Health Maintenance Due Date Last Done Comments LIPID PANEL 1967 DEPRESSION SCREENING 1979 HEPATITIS C SCREENING 09/17/1985 HIV ONE-TIME SCREENING (18-65 YEARS) 09/17/1985 PAP SMEAR 09/17/1988 MAMMOGRAM 2007 COLOGUARD 09/17/2012 COLONOSCOPY 09/17/2012 COLORECTAL CANCER SCREENING 09/17/2012 FIT TEST 09/17/2012 FOBT 09/17/2012 SIGMOIDOSCOPY 09/17/2012 VIRTUAL COLONOSCOPY 09/17/2012 RSV VACCINE (1 - Risk 50-74 years 1-dose series) 09/17/2017 INFLUENZA VACCINE (#1) 2024 , 11/05/2022, 12/01/2021, Additional history exists COVID-19 VACCINE ( season) 2024 11/24/2023, 11/05/2022, 12/01/2021, Additional history exists SCREENING FOR DIABETES 09/22/2026 09/23/2023 Adult Td,Tdap Booster 01/30/2034 01/31/2024 ZOSTER VACCINES Completed 02/15/2021, 10/20/2020 PNEUMOCOCCAL VACCINES (50+ years) Completed 01/31/2024 SMOKING STATUS SCREENING (Once After 26 Yrs) Completed 09/15/2024 HEPATITIS A VACCINES Aged Out No long er eligible based on patient's age to complete this topic HIB VACCINES Aged Out No longer eligi ble based on patient's age to complete this topic MENINGOCOCCAL VACCINES (ACWY) Aged Out No longer eligible based on patient's age to complete this topic MENINGOCOCCAL VACCINES (B) Aged Out N o longer eligible based on patient's age to complete this topic Medical Devices Not on file Insurance [facility] TIERED HMO TIERED HMO [facility] TIERED HMO Member Subscriber Plan / Payer (Ef fective 2022-Present) Name:DeshawnSasha Member ID:[id number] Relation to Subscriber:Self Name:Sasha Hess Subscriber ID:[id number] Payer ID:[id number] (NAIC) Group ID:Not on file Type:HMO Address: [address] TIERED HMO ED O Member Subscriber Plan / Payer ( fective 2022-) Name:Sasha Hess Member ID:[id number] Relation to Subscriber:Self Name:Deshawn Sasha Subscriber ID:[id number] Payer ID:[id number] (NAIC) Group ID:Not on file Type:O Address: [address] TIERED HMO [facility] HPI [facility] TIERED HMO Member Subscriber Plan / Payer (Ef fective 2022-Present) Name:Sahsa Hess Member ID:[id number] Relation to Subscriber:Self Name:Sasha Hess Subscriber ID:[id number] Payer ID:[id number] (NAIC) Group ID:Not on file Type:HMO Address: [address] HPI [facility] TIERED HMO Care Teams [employer] Nurse Relationship Specialty Start Date End Date Victor Hugo Zuniga MD [address] [place] [id number] PCP - General Internal Medicine 08/29/20 Additional Source Comments The information contained in this document represents components of the legal health record. It is not the complete legal health record.[facility]
--- OUTSIDE RECORDS SUMMARY | 2025-01-26 09:39 | XMS_ITS | Clinical Summary ---
Author Organization [facility] Address [address] [place] [address] Phone Care Team Providers Care Instructor Nurse Name Role Phone Victor Hugo Zuniga MD Primary Care Provider [phone] Allergies Active Allergy Reactions Criticality Noted Date Comments Fexofenadine Rash,Swelling High 03/22/2017 Causes shortness of breath Red Dye 06/15/2024 Some red dyes Sulfamethoxazole-Trimethop rim Rash 03/22/2017 Medications aspirin 81 mg EC tablet Take 1 tablet (81 mg total) by mouth 1 (one) time each day. Active cholecalciferol (VITAMIN D-3) 25 mcg [...] inhaler inhaler Inhale by mouth. 11/27/2023 Active levothyroxine (SYNTHROID, LEVOTHROID) 25 mcg tablet Take 1 tablet (25 mcg total) by mouth 1 (one) time each day. 11/05/2024 Active Active Problems Problem Noted Date Diagnosed Date Muscle cramps 11/23/2024 Epistaxis 11/23/2024 Ascending aorta dilation 06/15/2024 Assessment & Plan (06/15/2024 5:26 PM EDT): [...] Encounters Date Type Department Care Team Description 12/18/2024 11:45 AM EST Lab Draw Station - [facility] [address] [place] [phone] Hypothyroidism, unspecified type 11/23/2024 9:00 AM EDT Office Visit [facility] Hematology Oncology [address] [place] [phone] Kamran-Tai Galo MD MGUS (monoclonal gammopathy of unknown significance) (Primary Dx); Dyspnea on exertion; Graves disease; Muscle cramps; Epistaxis from Last 3 Months Surgical History Surgery Date Site/Laterality Comments TONSILLECTOMY 1998 PROCEDURE: HISTORICAL TONSILLECTOMY BREAST LUMPECTOMY 1999 Bilateral PROCEDURE: HISTORICAL BREAST LUMPECTOMY; COMMENT: benign BACK SURGERY 2004 PROCEDURE: HISTORICAL BACK SURGERY; COMMENT: disk injury from work EYE SURGERY 2016 PROCEDURE: HISTORICAL EYE SURGERY; COMMENT: Lasik OTHER SURGICAL HISTORY 08/25/2019 PROCEDURE: [place] THORACOSCOPY RESEXN THYMUS UNI/BILATERAL KNEE ARTHROSCOPY W/ MENISCAL REPAIR 2019 Left PROCEDURE: [place] ARTHROSCOPY KNEE W/MENISCUS RPR MEDIAL/LATERAL Medical History [...] Orientation Straight 07/04/2022 11 :44 AM EDT Last Filed Vital Signs Vital Sign Reading Time Taken Comments Blood Pressure 134/85 11/23/2024 8:56 AM EDT Pulse 65 11/23/2024 8:56 AM EDT Temperature 36.6 C (97.8 F) 11/23/2024 8:56 AM EDT Respiratory Rate 20 05/31/2024 12:1 8 AM EDT Oxygen Saturation 98% 11/23/2024 8:5 6 AM EDT Inhaled Oxygen Concentration - - Weight 129 kg (284 lb) 11/23/2024 8:56 AM EDT patient stated Height 175.3 cm (5' 9 ) 11/23/2024 8:56 AM EDT Body Mass Index 41.94 11/23/2024 8:56 AM EDT Plan of Treatment Upcoming Encounters Date Type Department Care Team (Late st Contact Info) Description 04/20/2025 9:40 AM EDT Procedure visit [facility] [address] [place] [phone] Armand Nascimento MD [address] [place] [address] 06/07/2025 8:00 AM EDT Ancillary Procedure [facility] [address] [place] [address] 11/15/2025 9:00 AM EDT Office Visit [facility] Hematology Oncology [address] [place] [phone] Tai Magallanes MD [address] [place] [phone] Health Maintenance Due Date Last Done Comments Breast Cancer Screening 1967 Colorectal Cancer Screening: Colonoscopy 1967 Hepatitis B Vaccines (1 of 3 - 19+ 3-dose series) 09/17/1986 Cervical Cancer Screening: Pap Smear 09/17/1988 RSV Immunization Adult Patients (1 - Risk 50-74 years 1-dose series) 09/17/2017 HIV Screening 01/20/2022 Hepatitis C Screening 01/20/2022 Social Influencers of Health Screening 01/20/2022 Depression Screening 02/12/2024 COVID-19 Vaccine ( season) 2024 11/24/2023, 11/05/2022, 12/01/2021, Additional history exists Cholesterol Screening (Lipid Panel) 09/25/2029 09/25/2024 DTaP,Tdap,and Td Vaccines (2 - Td or Tdap) 01/30/2034 01/31/2024 MMR Vaccines Aged Out 04/16/2018 No longer eligi ble based on patient's age to complete this topic Zoster Vaccines Completed 02/15/2021, 10/20/2020 Pneumococcal Vaccine: 50+ Years Completed 01/31/2024 Influenza Vaccine Completed 11/21/2024, , 11/05/2022, Additional history exists HIB Vaccines Aged Out No longer eligi [...] Procedure Name Priority Date/Time Associated Diagnosis Comments TRIIODOTHYRONINE FREE Routine 12/18/2024 11:49 AM EST Hypothyroidism, unspecified type FREE THYROXINE WITH REFLEX TO FREE TRIIODOTHYRONINE Routine 12/18/2024 11:49 AM EST Hypothyroidism, unspecified type THYROID STIMULATING HORMONE WITH REFLEX TO FREE T4 AND FREE T3 Routine 12/18/2024 11:49 AM EST Hypothyroidism, unspecified type NJ PROTEIN ELECTROPHORETIC FRACTIONATION & QUANTITATION SERUM Routine 11/19/2024 2:36 PM EDT MGUS (monoclonal gammopathy of unknown significance) PROTEIN, TOTAL Routine 11/19/2024 2:36 PM EDT MGUS (monoclonal gammopathy of unknown significance) CBC WITH AUTO DIFFERENTIAL Routine 11/19/2024 2:36 PM EDT MGUS (monoclonal gammopathy of unknown significance) KAPPA-LAMBDA QUANTITATIVE FREE LIGHT CHAINS Routine 11/19/2024 2:36 PM EDT MGUS (monoclonal gammopathy of unknown significance) CBC AND DIFFERENTIAL Routine 11/19/2024 2:36 PM EDT MGUS (monoclonal gammopathy of unknown significance) COMPREHENSIVE METABOLIC PANEL Routine 11/19/2024 2:36 PM EDT MGUS (monoclonal gammopathy of unknown significance) LACTATE DEHYDROGENASE Routine 11/19/2024 2:36 PM EDT MGUS (monoclonal gammopathy of unknown significance) PROTEIN ELECTROPHORESIS, SERUM Routine 11/19/2024 2:36 PM EDT MGUS (monoclonal gammopathy of unknown significance) LIPID PANEL WITH REFLEX TO DIRECT LDL Routine 09/25/2024 7:52 AM EDT Primary generalized (osteo)arthritis Disorder of lipoprotein and lipid metabolism Hyperthyroidism Hyperlipidemia Obstructive sleep apnea Benign hypertension Esophageal reflux Biclonal gammopathy Dilatation of thoracic aorta (CMS/HCC V24) from Last 3 Months or Most Recently Relevant to Health Maintenance Results * (ABNORMAL) Thyroid stimulating hormone with reflex to free t4 and free t3 (12/18/2024 11:49 AM EST) TSH 4.89(H) 0.40 - 4.00 mcIU/mL LAB CHEMISTRY METHOD 12/18/2024 2:10 PM EST [facility] Blood Venous blood specimen / Unknown Venipuncture / Unknown 12/18/2024 11:49 AM EST 12/18/2024 12:18 PM EST us Farshad Calderon MD LAB BLOOD ORDERABLES Final Result [facility] [address] [place] [address], [place] [phone] * Free thyroxine with reflex to free triiodothyronine (12/18/2024 11:49 AM EST) Pathologist [facility] Free T4 1.02 0.70 - 1.80 ng/dL LAB CHEMISTRY METHOD 12/18/2024 2:50 PM EST [facility] Blood Venous blood specimen / Unknown Venipuncture / Unknown 12/18/2024 11:49 AM EST 12/18/2024 12:18 PM EST Farshad Calderon MD LAB BLOOD ORDERABLES Final Result [facility] [address] [place] [address], [place] [phone] * (ABNORMAL) Triiodothyronine free (12/18/2024 11:49 AM EST) Pathologist [facility] T3, Free 228(L) 230 - 420 pcg/dL LAB CHEMISTRY METHOD 12/18/2024 4:25 PM EST [facility] Blood Venous blood specimen / Unknown Venipuncture / Unknown 12/18/2024 11:49 AM EST 12/18/2024 12:18 PM EST Farshad Calderon MD LAB BLOOD ORDERABLES Final Result [facility] [address] [place] [address], [place] [phone] * PATHOLOGIST REVIEW PROTEIN ELECTROPHORESIS (11/19/2024 2:36 PM EDT) Pathologist [facility] Pathologist Interpretation Caroline Monahan MD 11/20/2024 1:54 PM EDT [facility] Blood Venous blood specimen / Unknown Venipuncture / Unknown 11/19/2024 2:36 PM EDT 11/19/2024 4:36 PM EDT Tai Magallanes MD LAB BLOOD ORDERABLE S Final Result [facility] [address] [place] [address], [place] [phone] * [place]-lambda free light chains, quantitative (11/19/2024 2:36 PM EDT) [place] Free Light Chain 1.20 0.33 - 1.94 mg/dL 11/23/2024 1:44 PM EDT [facility] Lambda Free Light Chain 0.81 0.57 - 2.63 mg/dL 11/23/2024 1:[address] [facility] [place]/Lambda FLC Ratio 1.48 0.26 - 1.65 11/23/2024 1:[address] [facility] Comment: Test performed at [facility], [address] , [place] [address] Mariela Barnhart MD, PhD - [employer] Worker Blood Venous blood specimen / Unknown Venipuncture / Unknown 11/19/2024 2:36 PM EDT 11/19/2024 4:36 PM EDT Tai Magallanes MD LAB BLOOD ORDERABLE S Final Result [facility] [address] [place] [address] * (ABNORMAL) CBC auto differential (11/19/2024 2:36 PM EDT) WBC 6.0 4.8 - 10.8 K/mcL LAB HEMETOLOGY METHOD 11/19/2024 4:51 PM EDT [facility] RBC 4.80 3.80 - 4.80 M/mcL LAB HEMETOLOGY METHOD 11/19/2024 4:51 PM EDT [facility] Hemoglobin 12.6 11.5 - 16.0 g/dL LAB HEMETOLOGY METHOD 11/19/2024 4:51 PM EDT [facility] Hematocrit 40.7 35.0 - 47.0 % LAB HEMETOLOGY METHOD 11/19/2024 4:51 PM EDT [facility] MCV 85.3 79.0 - 98.0 FL LAB HEMETOLOGY METHOD 11/19[facility]24 [facility] MCH 26.4(L) 27.0 - 32.0 pcg LAB HEMETOLOGY METHOD 11/19/2024 4:51 PM EDT [facility] MCHC 31.0(L) 32.0 - 37.0 g/dL LAB HEMETOLOGY METHOD 11/19/2024 4:51 PM [facility] RDW 15.8(H) 11.0 - 15.0 % LAB HEMETOLOGY METHOD 11/19/2024 4:51 [facility] Platelets 231 130 - 400 K/mcL LAB HEMETOLOGY METHOD 11/19/2024 4:51 PM [facility] MPV 10.4 7.0 - 11.0 FL LAB HEMETOLOGY METHOD 11/19/2024 4:51 PM [facility] NRBC 0.0 <1.0 % LAB HEMETOLOGY METHOD 11/19/2024 4:51 PM [facility] NRBC Absolute 0.00 <0.10 K/mcL LAB HEMETOLOGY METHOD 11/19/2024 4:51 PM [facility] Neutrophils Relative 36.3 % LAB HEMETOLOGY METHOD 11/19/2024 4:51 PM EDT [facility] Lymphocytes Relative 51.3 % LAB HEMETOLOGY METHOD 11/19/2024 4:51 PM [facility] Monocytes Relative 7.9 % LAB HEMETOLOGY METHOD 11/19/2024 4:51 PM EDT [facility] Eosinophils Relative 3.5 % LAB HEMETOLOGY METHOD 11/19/2024 4:51 PM EDT [facility] Basophils Relative 0.8 % LAB HEMETOLOGY METHOD 11/19/2024 4:51 PM EDT [facility] Immature Granulocytes Relative 0.2 % LAB HEMETOLOGY METHOD 11/19/2024 4:51 PM EDT [facility] Neutrophils Absolute 2.16 1.50 - 7.00 K/mcL LAB HEMETOLOGY METHOD 11/19/2024 4:51 PM EDT [facility] Lymphocytes Absolute 3.05 1.00 - 5.00 K/mcL LAB HEMETOLOGY METHOD 11/19/2024 4:51 PM EDT [facility] Monocytes Absolute 0.47 0.20 - 1.00 K/mcL LAB HEMETOLOGY METHOD 11/19/2024 4:51 PM EDT [facility] Eosinophils Absolute 0.21 0.00 - 0.50 K/mcL LAB HEMETOLOGY METHOD 11/19/2024 4:51 PM EDT [facility] Basophils Absolute 0.05 0.00 - 0.20 K/mcL LAB HEMETOLOGY METHOD 11/19/2024 4:51 PM EDT [facility] Immature Granulocytes Absolute 0.01 0.00 - 0.03 K/mcL LAB HEMETOLOGY METHOD 11/19/2024 4:51 PM EDT [facility] Blood Venous blood specimen / Unknown Venipuncture / Unknown 11/19/2024 2:36 PM EDT 11/19/2024 4:38 PM EDT us Tai Magallanes MD LAB BLOOD ORDERABLE S Final Result [facility] [address] [place] [address], * Protein electrophoresis, serum (11/19/2024 2:36 PM EDT) Total Protein 7.3 6.0 - 8.0 g/dL LAB CHEMISTRY METHOD 11/20/2024 1:54 PM EDT [facility] Albumin, Serum 3.7 2.9 - 4.1 g/dL LAB CHEMISTRY METHOD 11/20/2024 1:54 PM EDT [facility] Alpha 1 Globulin (g/dL) 0.3 0.1 - 0.5 g/dL LAB CHEMISTRY METHOD 11/20/2024 1:54 PM EDT [facility] Alpha 2 Globulin (g/dL) 0.8 0.7 - 1.5 g/dL LAB CHEMISTRY METHOD 11/20/2024 1:54 PM EDT [facility] Beta (g/dL) 1.1 0.7 - 1.5 g/dL LAB CHEMISTRY METHOD 11/20/2024 1:54 PM EDT [facility] Gamma Globulin (g/dL) 1.3 0.7 - 1.9 g/dL LAB CHEMISTRY METHOD 11/20/2024 1:54 PM EDT [facility] PARAPROTEIN 0.6 g/dL LAB CHEMISTRY METHOD 11/20/2024 1:54 PM EDT [facility] SPEP Interpretation Monoclonal gammopathy Abnormal pattern with M-spike of gamma globulin mobility. Serum immunofixation previously performed on 09/25/24 demonstrated IgG [place] monoclonal protein. LAB CHEMISTRY METHOD 11/20/2024 1:54 PM EDT [facility] Blood Venous blood specimen / Unknown Venipuncture / Unknown 11/19/2024 2:36 PM EDT 11/19/2024 4:36 PM EDT Tai Magallanes MD LAB BLOOD ORDERABLE S Final Result [facility] [address] [place] [address], [place] [phone] * Protein, total (11/19/2024 2:36 PM EDT) Pathologist [facility] Total Protein 7.3 6.0 - 8.0 g/dL LAB CHEMISTRY METHOD 11/19/2024 5:18 PM EDT [facility] Blood Venous blood specimen / Unknown Venipuncture / Unknown 11/19/2024 2:36 PM EDT 11/19/2024 4:36 PM EDT us Tai Magallanes MD LAB BLOOD ORDERABLE S Final Result Performing Organization Address City/[facility]/ZIP Co de Phone Number [facility] [address] [place] [address], [place] [phone] * Lactate dehydrogenase (11/19/2024 2:36 PM EDT) [facility] LDH 235 120 - 246 unit/L LAB CHEMISTRY METHOD 11/19/2024 5:17 PM EDT [facility] Blood Venous blood specimen / Unknown Venipuncture / Unknown 11/19/2024 2:36 PM EDT 11/19/2024 4:36 PM EDT us Tai Magallanes MD LAB BLOOD ORDERABLE S Final Result [facility] [address] [place] [address], [place] [phone] * (ABNORMAL) Comprehensive metabolic panel (11/19/2024 2:36 PM EDT) [facility] Sodium 140 133 - 145 mmol/L LAB CHEMISTRY METHOD 11/19/2024 5:17 PM EDT [facility] Potassium 3.9 3.5 - 5.5 mmol/L LAB CHEMISTRY METHOD 11/19/2024 5:17 PM EDT [facility] Chloride 106 96 - 110 mmol/L LAB CHEMISTRY METHOD 11/19/2024 5:17 PM [facility] CO2 29 21 - 32 mmol/L LAB CHEMISTRY METHOD 11/19/2024 5:17 PM [facility] Anion Gap 5 3 - 11 LAB CHEMISTRY METHOD 11/19/2024 5:17 PM [facility] Glucose 108(H) 70 - 100 mg/dL LAB CHEMISTRY METHOD 11/19/2024 5:17 PM [facility] BUN 8 5 - 25 mg/dL LAB CHEMISTRY METHOD 11/19/2024 5:17 PM [facility] Creatinine 0.65 0.50 - 1.10 mg/dL LAB CHEMISTRY METHOD 11/19/2024 5:17 PM [facility] eGFR 103 >=60 mL/min/1. 73m2 LAB CHEMISTRY METHOD 11/19/2024 5:17 PM [facility] Comment:Calculation based on the Chronic Kidney Disease Epidemiology Collaboration (CKD-EPI) equation refit without adjustment for race. BUN/Creatinine Ratio 12.3 LAB CHEMISTRY METHOD 11/19/2024 5:17 PM [facility] Calcium 10.3 8.5 - 10.5 mg/dL LAB CHEMISTRY METHOD 11/19/2024 5:17 PM [facility] AST (SGOT) 23 10 - 42 unit/L LAB CHEMISTRY METHOD 11/19/2024 5:17 PM [facility] ALT (SGPT) 38 10 - 60 unit/L LAB CHEMISTRY METHOD 11/19/2024 5:17 PM [facility] Alkaline Phosphatase 94 42 - 121 unit/L LAB CHEMISTRY METHOD 11/19/2024 5:17 PM [facility] Total Protein 7.2 6.0 - 8.0 g/dL LAB CHEMISTRY METHOD 11/19/2024 5:17 PM [facility] Albumin 3.7 3.2 - 5.0 g/dL LAB CHEMISTRY METHOD 11/19/2024 5:17 PM EDT [facility] Total Bilirubin 0.3 0.0 - 1.4 mg/dL LAB CHEMISTRY METHOD 11/19/2024 5:17 PM [facility] Blood Venous blood specimen / Unknown Venipuncture / Unknown 11/19/2024 2:36 PM EDT 11/19/2024 4:36 PM EDT Tai Magallanes MD LAB BLOOD ORDERABLE S Final Result [facility] [address] [place] [address], [place] [phone] * (ABNORMAL) Lipid panel with reflex to direct LDL (09/25/2024 7:52 AM EDT) Cholesterol 235(H) 0 - 200 mg/dL LAB CHEMISTRY METHOD 09/25/2024 11:06 AM [facility] Triglycerides 74 0 - 150 mg/dL LAB CHEMISTRY METHOD 09/25/2024 11:06 AM [facility] HDL 53 >=40 mg/dL LAB CHEMISTRY METHOD 09/25/2024 11:06 AM [facility] LDL Calculated 167(H) 0 - 100 mg/dL LAB CHEMISTRY METHOD 09/25/2024 11:06 AM [facility] Comment:Estimated LDL Calcul ated using equation: Total cholesterol - HDL cholesterol - (Triglycerides/5) VLDL Cholesterol Len 14.8 mg/dL LAB CHEMISTRY METHOD 09/25/2024 11:06 AM [facility] Non HDL Chol. (LDL+VLDL) 182(H) <145 mg/dL LAB CHEMISTRY METHOD 09/25/2024 11:06 AM [facility] Chol/HDL Ratio 4.4 0.0 - 4.4 LAB CHEMISTRY METHOD 09/25/2024 11:06 AM [facility] Blood Venous blood specimen / Unknown Venipuncture / Unknown 09/25/2024 7:52 AM EDT 09/25/2024 9:45 AM EDT Victor Hugo Zuniga MD LAB BLOOD ORDERABLES Final R esult [facility] [address] [place] [address], from Last 3 Months or Most Recently Relevant to Health Maintenance Insurance [facility] [employer] [facility] Care Teams Instructor Nurse Relationship Specialty Start Date End Date Victor Hugo Zuniga MD [address] [place] [address] PCP - General Internal Medicine 09/08/14
--- OUTSIDE RECORDS SUMMARY | 2025-01-26 09:39 | XMS_ITS | Continuity of Care Document ---
Author Organization [facility] [address] [place] [address] Phone [phone] Care Team Providers Care Fur Mixer Operator Name Role Phone Victor Hugo Zuniga M.D. Care Team Information Recei rupa [phone] Problems Active Problems Provider Date Graves' disease Farshad Calderon M.D. Onset: 0 10/18/2021 Type 2 diabetes mellitus Farshad Calderon M.D. Onset: 12/21/2024 Social History Type Date Description Comments Sex Female Sex Unknown Tobacco Use Start: Unknown Never Smoked Cigarettes ETOH Use Rarely consumes alcohol Allergies and adverse reactions Active Allergies Criticality Reaction Severity Comments Date Bactrim Unable to assess criticality 10/18/2021 Marychuy Unable to assess criticality 10/18/2021 Medications Active Medications SIG Qnty Indications Ordering Provider Date Xhpajhlm4ah/0.5ML Solution Auto-Inject inject 0.5 ml weekly 6ml Farshad Calderon M.D. 12/31/2024 Levothyroxine Kntpyz40cox Capsules 1 tab by mouth every day as directed Farshad Calderon M.D. 12/21/[address] Take 1 Tablet By Mouth Twice A Day For 90 Days Unknown Metoprolol Teqvnjxm17uv Tablets Take 1/2 Tablet By Mouth Every Day Victor Hugo Zuniga M.D. Albuterol Sulfate NQL875(90Base) mcg/Act Aerosol Victor Hugo Zuniga M.D. Bxlsbjhmxm427aq Tablets take 1 tablet by mouth three times a day as needed Unknown Breztri Ncjoqlwqrn388-6-0.8mcg/ Act Aerosol Gatito Collins Amlodipine Besylate2.5mg Tablets Fr jimmy Zuniga M.D. Miebo1.338GM/ML Solution Gabe Agrawal, OD History Medications Mounjaro2.5mg/0.5ML Solution Auto-Inject inject 0.5 milliliters weekly 2ml Farshad Calderon M.D. 12/21/2024 - 12/31/2024 Levothyroxine Vvfsdb64ekr Tablets 1 tab by mouth every day as directed 90tabs Farshad Calderon M.D. 09/09/2024 - 12/21/2024 Vital Signs Date Vital Result Comment 12/21/2024 8:08am BP Systolic 120 mmHg BP Diastolic 90 mmHg Heart Rate 72 /min Height 69 inches 5'9 Weight 290.00 lb BMI (Body Mass Index) 42.8 kg/m2 Results Test Acquired Date Facility Test [...] Free 08/03/2023 [facility] Thyroxine (T-4), Serum 9.8 g/dL 1 Free T-3 3.9 pg/mL 2 Triiodothyronin e (T-3), Serum 151 ng/dL 3 Free Thyroxine 1.45 ng/dL 4 TSH+Free T4 06/06/2023 [facility] T4,Free(Direct) 1.75 ng/dL 0.82-1. 77 5 TSH <0.005 uIU/mL Low 0.450-4 .500 TSH 04/06/2023 [facility] TSH 0.23 uIU/mL Low (0.4-4. 2) Free T4 04/06/2023 [facility] Free T4 1.54 ng/dL (0.70-1 .80) TSH With Reflex To FT4 02/01/2023 [facility] TSH With Reflex To FT4 1.10 uIU/mL (0.4-4. 2) TSH 12/03/2022 [facility] TSH 0.12 uIU/mL Low (0.4-4. 2) TSH 09/04/2022 [facility] TSH 0.67 uIU/mL (0.4-4. 2) Free T4 09/04/2022 [facility] Free T4 0.96 ng/dL (0.70-1 .80) TSH 08/09/2022 [facility] TSH 0.23 uIU/mL Low (0.4-4. 2) Free T3 08/09/2022 [facility] Free T3 4.2 pg/mL (2.3-5. 0) Free T4 08/09/2022 [facility] Free T4 1.19 ng/dL (0.70-1 .80) TSH 04/19/2022 [facility] TSH <0.01 uIU/mL Low (0.4-4. 2) Free T3 04/19/2022 [facility] Free T3 5.0 pg/mL (2.3-5. 0) Free T4 04/19/2022 [facility] Free T4 1.68 ng/dL (0.70-1 .80) TSH 03/22/2022 [facility] TSH <0.01 uIU/mL Low (0.4-4. 2) Free T4 03/22/2022 [facility] Free T4 1.75 ng/dL (0.70-1 .80) Free T3 03/22/2022 [facility] Free T3 6.0 pg/mL High (2.3-5. 0) 1 Reference Range: Adults: 4.2 - 13.0 2 Reference Range: >=20y: 2.0 - 4.4 3 Reference Range: Adults: 55 - 170 4 Reference Range: >=20y: 0.82 - 1.77 5 STANDING ORDER Medical Devices Description No Information Available Encounters Type Date Location Provider Dx Diagnosis Office Visit 12/21/2024 8:15a Main Office Farshad Calderon M.D. E03.9 Hypothyroidism, unspecified E11.9 Type 2 diabetes nikolay itus without complications Assessments Date Code Description Provider 12/21/2024 E03.9 Hypothyroidism aFrshad dan M.D. 12/21/2024 E11.9 Type 2 diabetes mellitus Felecia Calderon M.D. Plan of Treatment Future Appointment(s):* 03/22/2025 10:45 am - Farshad Calderon M.D. at Main Office 12/21/2024 - Farshad Calderon M.D.* E03.9 Hypothyroidism * E11.9 Type 2 diabetes mellitus * * New Labs:* TSH RFX On Abnormal To Free T4, Ordered: 12/21/24 Functional Status Description No Information Available Mental Status Description No Information Available Referrals Refer to Reason for Referral Status Appt Farshad Milton M.D. Created [address] [place] [address] Drive [address] [place] [address] [phone]
--- OUTSIDE RECORDS SUMMARY | 2025-01-26 09:39 | XMS_ITS | Clinical Summary ---
Author Organization [facility] Prior to 07/11/[address] [place] [id number] Care Team Providers Care Linux Administrator Name Role Phone Victor Hugo Zuniga MD Primary Care Provider [phone] Allergies Active Allergy Reactions Criticality Noted Date [...] series) 04/02/2020 03/05/2020, 02/06/2020 Influenza Vaccine (#1) 2024 11/06/2017 RSV Ped < 20 months Aged Out No longe r eligible based on patient's age to complete this topic Care Teams Linux Administrator Relationship Specialty Start Date End Date Victor Hugo Zuniga MD PCP - General Internal Medicine 03/07/17
--- OUTSIDE RECORDS SUMMARY | 2025-01-26 09:39 | XMS_ITS | Clinical Summary ---
Author Organization [facility] Address [address] [place] [address] Care Team Providers Care Folder Seamer Name Role Phone Victor Hugo Zuniga Primary Care Provider [phone] Allergies Active Allergy Reactions Criticality Noted Date Comments Fexofenadine Anaphylaxis,Rash,Res piratory Distress,Swelling High 03/22/2017 Causes shortness of breath Red Dye Rash 06/15/2024 Some red dyes Sulfamethoxazole-Trimet hoprim Itching,Rash Low 03/22/2017 Medications aspirin 81 mg EC tablet Take 81 mg by mouth daily. Active cholecalciferol (VITAMIN D3) 25 mcg (1,000 unit) tablet Take 2,000 Units by mouth daily. Active metoprolol succinate XL (TOPROL XL) 25 mg tablet Take 12.5 mg by mouth daily. Active lactobacillus comb no.10 (Probiotic) 20 billion cell capsule Active omeprazole 20 mg tablet,delayed release (DR/EC) 20 mg 2 (two) times a day. Active multivitamin (THERAGRAN) tablet Take by mouth. Activ e diclofenac-miso prostoL (ARTHROTEC 75) 75-200 mg-mcg EC tablet Active co-enzyme Q-10 200 mg capsule Take 200 mg by mouth daily. Active amLODIPine (NORVASC) 2.5 mg tablet 2.5 mg. Active levothyroxine (SYNTHROID, LEVOTHROID) 50 mcg tablet SMARTSI Tablet(s) By Mouth Every Morning Active albuterol (PROAIR HFA,VENTOLIN HFA) 90 mcg inhaler SMARTSI inhalation Every 6 Hours PRN Active calcium carbonate (TUMS ORAL) Active melatonin 10 mg tablet Active Breztri Aerosphere 160-9-4.8 mcg/actuation HFA aerosol inhaler Active metaxalone (SKELAXIN) 800 mg tablet Take 800 mg by mouth. Active Miebo, PF, 100 % drops Active Mounjaro 2.5 mg/0.5 mL pen injector Inject under the skin. 5 Active Encounters Date Type Department Care Team Description 12/30/2024 myChart Message [facility] [address] [place] [id number] Public Bath Attendant: Shantal Morales NP Resutls 12/23/2024 4:13 PM EST - 12/23/2024 11:59 PM EST Hospital Encounter [facility] Xray [address] [place] [id number] Discharge Disposition: Home or Self Care (01) 12/23/2024 3:00 PM EST Office Visit [facility] [address] [place] [phone] Public Bath Attendant: Shantal Morales NP Arthralgia, unspecified joint (Primary Dx); Cramps, extremity from Last 3 Months Social History Tobacco Use Types Packs/Day Years Used Date Smoking Tobacco: Never Passive Smoke Exposure: Never Smokeless Tobacco: Never Tobacco Cessation:Counseling Given: Not Answered Alcohol Use Standard Drinks/Week Comments Yes 0 (1 standard drink = 0.6 oz pur e alcohol) occ Comments Unknown Sex and Gender Information Value Date Recorded Sex Assigned at Female 09/30/2024 10:06 AM EDT Legal Sex Female 10:02 AM EDT Gender Identity Female 12/18/2024 4:54 PM EST Sexual Orientation Straight 12/18/2024 4: 54 PM EST Last Filed Vital Signs Vital Sign Reading Time Taken Comments Blood Pressure 124/84 12/23/2024 3:05 PM EST Pulse 72 12/23/2024 3:05 PM EST Temperature 36.6 C (97.9 F) 12/23/2024 3:05 PM EST Respiratory Rate - - Oxygen Saturation - - Inhaled Oxygen Concentration - - Weight 131.1 kg (289 lb) 12/23/2024 3:05 PM EST Height 175.3 cm (5' 9 ) 12/23/2024 3:05 PM EST Body Mass Index 42.68 12/23/2024 3:05 PM EST Plan of Treatment Upcoming Encounters Date Type Department Care Team (Late st Contact Info) Description 03/26/2025 3:00 PM EST Follow-Up [facility] [address] [place], [place] [id number] Public Bath Attendant: Shantal Morales, JESSIE [address] [place] [address] Health Maintenance Due Date Last Done Comments Cervical Cancer Screening 1967 Cologuard 1967 Colon Cancer Screening 1967 Colonoscopy 1967 FOBT / Fit Test 1967 HIV Screening 1967 HPV and Pap Smear 1967 Pap Smear 1967 Sigmoidoscopy 1967 Hepatitis B Vaccines (1 of 3 - 19+ 3-dose series) 09/17/1986 Mammogram 2007 Alcohol/Substance Use Screening 02/12/2024 Depression Screening and Follow-Up 02/12/2024 Social Drivers of Health Maeve ual Screening 02/12/2024 COVID-19 Vaccine (7 - 2024-2 6 season) 2024 11/24/2023, 11/05/2022, 12/01/2021, Additional history exists Diabetes Screening 12/24/2027 12/23/2024, 11/19/2024 DTaP,Tdap,and Td Vaccines (2 - Td or Tdap) 01/30/2034 01/31/2024 Zoster Vaccines Completed 02/15/2021, 10/20/2020 Pneumococcal Vaccine: 50+ Years Completed Influenza Vaccine Completed 11/21/2024, , 11/05/2022, Additional history exists Hepatitis C Screening Completed 12/23/2024 Procedures * Due to [place] state law, this organization might not be sharing negative HIV tests. Procedure Name Priority Date/Time Associated Diagnosis Comments T4, FREE Routine 12/23/2024 5:08 PM EST Arthralgia, unspecified joint CK Routine 12/23/2024 5:08 PM EST Arthralgia, unspecified joint COMPREHENSIVE METABOLIC PANEL Routine 12/23/2024 5:08 PM EST Arthralgia, unspecified joint MAGNESIUM Routine 12/23/2024 5:08 PM EST Cramps, extremity FERRITIN Routine 12/23/2024 5:08 PM EST Cramps, extremity IRON SATURATION Routine 12/23/2024 5:08 PM EST Cramps, extremity IRON, TIBC AND FERRITIN PANEL (5616) Routine 12/23/2024 5:08 PM EST Cramps, extremity VITAMIN B12 Routine 12/23/2024 5:08 PM EST Cramps, extremity CARLSON TOP, URN Routine 12/23/2024 5:08 PM EST Arthralgia, unspecified joint UA/CULTURE REFLEX Routine 12/23/2024 5:0 8 PM EST Arthralgia, unspecified joint URINALYSIS W/REFLEX TO MICROSCOPIC & CULTURE Routine 12/23/2024 5:08 PM EST Arthralgia, unspecified joint MICHELE SPECIFIC ANTIBODY Routine 12/23/2024 5:08 PM EST Arthralgia, unspecified joint QUANTIFERON-TB GOLD PLUS, 1 [id number] Routine 12/23/2024 5:08 PM EST Arthralgia, unspecified joint HEPATITIS C ANTIBODY W/REFLEX TO HCV RNA, QUANTITATIVE PCR Routine 12/23/2024 5:08 PM EST Arthralgia, unspecified joint HEPATITIS B SURFACE ANTIBODY Routine 12/23/2024 5:08 PM EST Arthralgia, unspecified joint HEPATITIS B SURFACE ANTIGEN W/CONFIRMATION Routine 12/23/2024 5:08 PM EST Arthralgia, unspecified joint HEPATITIS B CORE ANTIBODY, IGM Routine 12/23/2024 5:08 PM EST Arthralgia, unspecified joint LYME ANTIBODY SCREEN W/REFLEX TO BLOT Routine 12/23/2024 5:08 PM EST Arthralgia, unspecified joint RHEUMATOID FACTOR Routine 12/23/2024 5:0 8 PM EST Arthralgia, unspecified joint URIC ACID Routine 12/23/2024 5:08 PM EST Arthralgia, unspecified joint C-REACTIVE PROTEIN Routine 12/23/2024 5: 08 PM EST Arthralgia, unspecified joint SEDIMENTATION RATE, AUTOMATED Routine 12/23/2024 5:08 PM EST Arthralgia, unspecified joint CYCLIC CITRULLLNATED PEPTIDE (CCP) ANTIBODY, IGG Routine 12/23/2024 5:08 PM EST Arthralgia, unspecified joint TSH REFLEX FREE T4 Routine 12/23/2024 5: 08 PM EST Arthralgia, unspecified joint MICHELE SCREEN, IFA, W/REFLEX TO TITER & PATTERN Routine 12/23/2024 5:08 PM EST Arthralgia, unspecified joint CBC Routine 12/23/2024 5:08 PM EST Arthralgia, unspecified joint URINE CULTURE, ROUTINE Routine 5:08 PM EST Arthralgia, unspecified joint XR HIPS BILATERAL 5+ VW W PELVIS Routine 12/23/2024 4:52 PM EST Arthralgia, unspecified joint XR KNEE 4+ VW LEFT Routine 12/23/2024 4: 52 PM EST Arthralgia, unspecified joint XR KNEE 4+ VW RIGHT Routine 12/23/2024 4 :52 PM EST Arthralgia, unspecified joint XR KNEE AP/PA BILATERAL STANDING Routine 12/23/2024 4:52 PM EST Arthralgia, unspecified joint XR HAND 3+ VW RIGHT Routine 12/23/2024 4 :52 PM EST Arthralgia, unspecified joint XR HAND 3+ VW LEFT Routine 12/23/2024 4: 52 PM EST Arthralgia, unspecified joint XR FOOT 3+ VW RIGHT Routine 12/23/2024 4 :52 PM EST Arthralgia, unspecified joint XR FOOT 3+ VW LEFT Routine 12/23/2024 4: 52 PM EST Arthralgia, unspecified joint XR CHEST 2 VW Routine 12/23/2024 4:52 PM EST Arthralgia, unspecified joint from Last 3 Months Results * Due to [place] state law, this organization might not be sharing negative HIV tests. * Carlson Top, Urine (12/23/2024 5:08 PM EST) Extra Tube Hold for add-ons. 12/23/2024 10:05 PM EST [facility] Comment:Auto resulted. Urine Urine specimen collection, clean catch / Unknown Non-Blood Collection / Unknown 12/23/2024 5:08 PM EST 12/23/2024 6:05 PM EST us Shantal Fisher METAL DEALER LAB URINE ORDERABLES Final Res ult [facility] [address] [place] [address], [place] * (ABNORMAL) Urinalysis W/Reflex to Microscopic & Culture (12/23/2024 5:08 PM EST) Color, Urine Light Yellow Colorless, Light Yellow, Yellow, Dark Yellow 12/23/2024 6:27 PM [facility] Clarity, Urine Clear Clear 12/23/2024 6:27 PM [facility] Specific [place], Urine 1.017 <1.030 12/23/2024 6:27 PM [facility] pH, Urine 6.5 4.6 - 8.0 12/23/2024 6:27 PM [facility] Protein, Urine Negative Negative 12/23/2024 6:27 PM [facility] Glucose, Urine Normal Normal 12/23/2024 6:27 PM [facility] Ketones, Urine Negative Negative 12/23/2024 6:27 PM [facility] Bilirubin, Urine Negative Negative 12/23/2024 6:27 PM [facility] Blood, Urine Negative Negative 12/23/2024 6:27 PM [facility] Nitrite, Urine Negative Negative 12/23/2024 6:27 PM [facility] Urobilinogen, Urine Normal Normal 12/23/2024 6:27 PM [facility] Leukocyte Esterase, Urine 1+(A) Negative 12/23/2024 6:27 PM [facility] WBC, Urine 5(H) 0 - 2 /HPF 12/23/2024 6:27 PM [facility] RBC, Urine 3(H) 0 - 2 /HPF 12/23/2024 6:27 PM [facility] Hyaline Casts, Urine 0 0 - 2 /LPF 12/23/2024 6:27 PM [facility] Squamous Epithelial Cells, Urine <1 /HPF 12/23/2024 6:27 PM EST [facility] Bacteria, Urine Rare(A) None /HPF /HPF 12/23/2024 6:27 PM EST [facility] Mucus, Urine Rare /LPF 12/23/2024 6:27 PM EST [facility] Urine Urine specimen collection, clean catch / Unknown Non-Blood Collection / Unknown 12/23/2024 5:08 PM EST 12/23/2024 6:05 PM EST [facility] LAB URINE ORDERABLES Final Res ult Performing Organization Address City/[facility]/ZIP Co de Phone Number [facility] [address] [place] [address], [place] * (ABNORMAL) Iron Saturation (12/23/2024 5:08 PM EST) Iron Saturation 19(L) 20 - 50 % 6:52 PM EST [facility] Iron 65 30 - 160 ug/dL 12/23/2024 6:52 PM EST [facility] Transferrin 271 200 - 360 mg/dL 12/23/2024 6:52 PM EST [facility] Total Iron Binding Capacity 339 255 - 450 ug/dL 12/23/2024 6:52 PM EST [facility] Blood Structure of peripheral vein / Unknown Venipuncture / Unknown 12/23/2024 5:08 PM EST 12/23/2024 6:05 PM EST [facility] LAB BLOOD ORDERABLES Final Res ult Performing Organization Address City/[facility]/ZIP Co de Phone Number [facility] [address] [place] [address], [place] * (ABNORMAL) TSH Reflex Free T4 (12/23/2024 5:08 PM EST) TSH 5.440(H) 0.280 - 3.890 uIU/mL 12/23/2024 6:52 PM EST [facility] Comment: Females: 1st trimester 0.150-4.000 IU/mL 2nd trimester 0.310-4.170 IU/mL 3rd trimester 0.380-4.150 IU/mL Blood Structure of peripheral vein / Unknown Venipuncture / Unknown 12/23/2024 5:08 PM EST 12/23/2024 6:05 PM EST us Shantal Fisher NP LAB BLOOD ORDERABLES Final Res ult [facility] [address] [place] [address], * QuantiFERON-TB Gold Plus, 1 Tube (12/23/2024 5:08 PM EST) [facility] QuantiFERON-TB Gold Plus NEGATIVE NEGATIVE 12/27/2024 3:30 AM EST [facility] Comment: Negative test result. M. tuberculosis complex infection unlikely. NIL 0.02 IU/mL 12/27/2024 3:30 AM EST [facility] Mitogen-NIL 8.46 IU/mL 12/27/2024 3:30 AM EST [facility] TB1-NIL 0.00 IU/mL 12/27/2024 3:30 AM EST [facility] TB2-NIL 0.01 IU/mL 12/27/2024 3:30 AM EST [facility] Comment: The Nil tube value reflects the background interferon gamma immune response of the patient's blood sample. This value has been subtracted from the patient's displayed TB and Mitogen results. Lower than expected results with the Mitogen tube prevent false-negative Quantiferon readings by detecting a patient with a potential immune suppressive condition and/or suboptimal pre-analytical specimen handling. The TB1 Antigen tube is coated with the M. tuberculosis-specific antigens designed to elicit responses from TB antigen primed CD4+ helper T-lymphocytes. The TB2 Antigen tube is coated with the M. tuberculosis-specific antigens designed to elicit responses from TB antigen primed CD4+ helper and CD8+ cytotoxic T-lymphocytes. For additional information, please refer to https://education.DaoliCloud/faq/GDT272 (This link is being provided for informational/ educational purposes only.) Blood Structure of peripheral vein / Unknown Venipuncture / Unknown 12/23/2024 5:08 PM EST 12/23/2024 6:01 PM EST Narrative IDA BROUSSARD - 12/27/2024 3:30 AM EST [facility] Received Date:[id number] [facility] Phillip METAL DEALER LAB BLOOD ORDERABLES Final Res ult [facility] [address], [place] [address], [place] [phone] [facility] [address], [place] [address], [place] [phone] * Cyclic Citrullinated Peptide (CCP) Antibody, IgG (12/23/2024 5:08 PM EST) Cyclic Citrullinated Peptide (CCP) Ab (IgG) <16 UNITS 12/31/2024 12:05 AM EST [facility] Comment: Reference Range Negative: <20 Weak Positive: 20-39 Moderate Positive: 40-59 Strong Positive: >59 Blood Structure of peripheral vein / Unknown Venipuncture / Unknown 12/23/2024 5:08 PM EST 12/23/2024 6:05 PM EST Narrative IDA BROUSSARD - 12/31/2024 12:05 AM EST [facility] Received Date:[id number] [facility] LAB BLOOD ORDERABLES Final Res ult [facility] 200 [facility] 3rd Floor, [place] [address], [place] [phone] [facility] 200 [facility] 3rd Floor, [place] [address], [place] [phone] * Hepatitis C Antibody w/Reflex to HCV RNA, Quantitative PCR (12/23/2024 5:08 PM EST) Pathologist [facility] Hepatitis C Antibody NON-REACT JUNAID NON-REACT JUNAID 12/24/2024 8:05 PM EST [facility] Comment: HCV antibody was non-reactive. There is no laboratory evidence of HCV infection. In most cases, no further action is required. However, if recent HCV exposure is suspected, a test for HCV RNA (test code 56125) is suggested. For additional information please refer to http://education.DaoliCloud/faq/KCD27a0 (This link is being provided for informational/ educational purposes only.) Blood Structure of peripheral vein / Unknown Venipuncture / Unknown 12/23/2024 5:08 PM EST 12/23/2024 6:05 PM EST [facility] - 12/24/2024 8:05 PM EST [facility] Received Date: Shantal Fisher METAL DEALER LAB BLOOD ORDERABLES Final Res ult [facility] [place] 200 [facility] 3rd Floor, [place] [address], [facility] 200 [facility] 3rd Floor, [place] [address], * Lyme Antibody Screen w/Reflex to Blot (12/23/2024 5:08 PM EST) [facility] Lyme Ab Screen <0.90 index 12/24/2024 6:27 PM EST [facility] Comment: Index Interpretation ----- < 0.90 Negative 0.90-1.09 Equivocal > 1.09 Positive As recommended by the Food and Drug Administration (FDA), all samples with positive or equivocal results in a Borrelia burgdorferi antibody screen will be tested using a blot method. Positive or equivocal screening test results should not be interpreted as truly positive until verified as such using a supplemental assay (e.g., B. burgdorferi blot). The screening test and/or blot for B. burgdorferi antibodies may be falsely negative in early stages of Lyme disease, including the period when erythema migrans is apparent. Blood Structure of peripheral vein / Unknown Venipuncture / Unknown 12/23/2024 5:08 PM EST 12/23/2024 6:05 PM EST Narrative IDA HAYSRAMONITA - 12/24/2024 6:27 PM EST [facility] Received Date: Shantal Fisher METAL DEALER LAB BLOOD ORDERABLES Final Res ult [facility]DA [facility] 200 [facility] 3rd Floor, [place] [address], [place] [phone] [facility] 200 [facility] 3rd Floor, [place] [address], [place] [phone] * MICHELE Screen, IFA, w/Reflex to Titer & Pattern (12/23/2024 5:08 PM EST) MICHELE Screen, IFA NEGATIVE NEGATIVE 12:54 PM EST [facility] Comment: MICHELE IFA is a first line screen for detecting the presence of up to approximately 150 autoantibodies in various autoimmune diseases. A negative MICHELE IFA result suggests an MICHELE-associated autoimmune disease is not present at this time, but is not definitive. If there is high clinical suspicion for Sjogren's syndrome, testing for anti-SS-A/Ro antibody should be considered. Anti-Alee-1 antibody should be considered for clinically suspected inflammatory myopathies. AC-0: Negative International Consensus on MICHELE Patterns (https://doi.org/10.1515/oogi-5017-0679) For additional information, please refer to http://education.Conelum.TagMii/faq/TZS639 (This link is being provided for informational/ educational purposes only.) Blood Structure of peripheral vein / Unknown Venipuncture / Unknown 12/23/2024 5:08 PM EST 12/23/2024 6:05 PM EST Narrative IDA BROUSSARD - 12/28/2024 12:54 PM EST [facility] Received Date:[id number] Shantal Fisher METAL DEALER LAB BLOOD ORDERABLES Final Res ult Performing Organization Address City/[facility]/ZIP Co de Phone Number I[facility] BROUSSARD [address], [place] [address], [place] [phone] [facility] [address], [place] [address], [place] [phone] * Hepatitis B Core Antibody, IgM (12/23/2024 5:08 PM EST) Hepatitis B Core Antibody NON-REACT JUNAID NON-REACT JUNAID 12/24/2024 10:26 AM EST [facility] Comment: For additional information, please refer to http://[employer].DaoliCloud/faq/OJG518 (This link is being provided for informational/ educational purposes only.) Blood Structure of peripheral vein / Unknown Venipuncture / Unknown 12/23/2024 5:08 PM EST 12/23/2024 6:05 PM EST Narrative [facility] [place] - 12/24/2024 10:26 AM EST [facility] Received Date: Shantal Fisher LAB BLOOD ORDERABLES Final Res ult IDA BROUSSARD [address], [place] [address], [place] [phone] [facility] [address], [place] [address], [place] [phone] * Hepatitis B Surface Antibody (12/23/2024 5:08 PM EST) Hepatitis B Surface Ab Immunity, Qn 20 > OR = 10 mIU/mL 12/24/2024 4:07 PM EST [facility] Comment: PATIENT HAS IMMUNITY TO HEPATITIS B VIRUS. For additional information, please refer to http://Ligon Discovery.DaoliCloud/faq/DXT905 (This link is being provided for informational/ educational purposes only). Blood Structure of peripheral vein / Unknown Venipuncture / Unknown 12/23/2024 5:08 PM EST 12/23/2024 6:05 PM EST Narrative IDA BROUSSARD - 12/24/2024 4:07 PM EST [facility] Received Date:[id number] us Shantal Chry METAL DEALER LAB BLOOD ORDERABLES Final Res ult IDA BROUSSARD [address], [address] [facility] [place] [address], [place] [phone] [facility] [address], [place] [address], [place] [phone] * Hepatitis B Surface Antigen W/Confirmation (12/23/2024 5:08 PM EST) Hepatitis B Surface Antigen NON-REACT JUNAID NON-REACT JUNAID 12/24/2024 10:26 AM EST [facility] Comment: For additional information, please refer to http://education.DaoliCloud/faq/JBH184 (This link is being provided for informational/ educational purposes only.) Blood Structure of peripheral vein / Unknown Venipuncture / Unknown 12/23/2024 5:08 PM EST 12/23/2024 6:05 PM EST Narrative [facility]DA [facility] - 12/24/2024 10:26 AM EST [facility] Received Date:[id number] us Shantal Fisher METAL DEALER LAB BLOOD ORDERABLES Final Res ult IDA BROUSSARD [address], [place] [address], [place] [phone] [facility] [address], [place] [address], [place] [phone] * Sedimentation Rate (12/23/2024 5:08 PM EST) Sed Rate 27 <30 mm/Hr mm/Hr 12/23/2024 6:22 PM EST [facility] Blood Structure of peripheral vein / Unknown Venipuncture / Unknown 12/23/2024 5:08 PM EST 12/23/2024 6:05 PM EST us Shantal Fisher METAL DEALER LAB BLOOD ORDERABLES Final Res ult [facility] [address] [place] [address], [place] * (ABNORMAL) CBC (12/23/2024 5:08 PM EST) WBC 5.3 3.8 - 10.8 10*3/uL 12/23/2024 6:20 PM EST [facility] RBC 4.84 3.80 - 5.10 10*6/uL 12/23/2024 6:20 PM EST [facility] Hemoglobin 13.0 11.7 - 15.5 g/dL 12/23/2024 6:20 PM EST [facility] Hematocrit 41.0 35.0 - 45.0 % 12/23/2024 6:20 PM EST [facility] MCV 84.7 80.0 - 100.0 fL 12/23/2024 6:20 PM EST [facility] MCH 26.9(L) 27.0 - 33.0 pg 12/23/2024 6:20 PM EST [facility] MCHC 31.7(L) 32.0 - 36.0 g/dL 12/23/2024 6:20 PM EST [facility] RDW 15.5(H) 11.0 - 15.0 % 12/23/2024 6:20 PM EST [facility] Platelets 230 140 - 400 10*3/uL 12/23/2024 6:20 PM EST [facility] MPV 10.0 7.5 - 12.5 fL 12/23/2024 6:20 PM EST [facility] Blood Structure of peripheral vein / Unknown Venipuncture / Unknown 12/23/2024 5:08 PM EST 12/23/2024 6:05 PM EST Shantal Fisher NP LAB BLOOD ORDERABLES Final Res ult [facility] [address] [place] [address], [place] * Urine Culture, Routine (12/23/2024 5:08 PM EST) Pathologist [facility] Culture Mixed genital marianne isolated. These superficial bacteria are not indicative of a urinary tract infection. No further organism identification is warranted on this specimen. 12/25/2024 12:05 AM EST [facility] Urine Urine specimen collection, clean catch / Unknown Non-Blood Collection / Unknown 12/23/2024 5:08 PM EST 12/23/2024 6:17 PM EST Narrative [facility] - 12/25/2024 12:05 AM EST [facility] Received Date: MICRO NUMBER: [id number] SPECIMEN QUALITY: Adequate SOURCE: URINE CLEAN CATCH STATUS: FINAL If clinically indicated, recollect clean-catch, mid-stream urine and transfer immediately to Urine Culture Transport Tube. us Shantal Fisher NP LAB MICROBIOLOGY - GENERAL ORD ERABLES Final Result Performing Organization Address City/[facility]/ZIP Co de Phone Number [facility] [place] 200 [facility] 3rd Floor, [place] [address], [place] [phone] [facility] 200 [facility] 3rd [address], [place] [address], [place] [phone] * Rheumatoid Factor (12/23/2024 5:08 PM EST) Pathologist [facility] Rheumatoid Factor <10 <14 IU/mL 12/24/2024 2:49 PM EST [facility] Blood Structure of peripheral vein / Unknown Venipuncture / Unknown 12/23/2024 5:08 PM EST 12/23/2024 6:05 PM EST Narrative [facility] - 12/24/2024 2:49 PM EST [facility] LAB BLOOD ORDERABLES Final Res ult [facility] [address] [facility] 3rd Floor, [place] [address], [place] [phone] [facility] [address] [facility] 3rd Floor, [place] [address], [place] [phone] * C-Reactive Protein (12/23/2024 5:08 PM EST) Pathologist [facility] C Reactive Protein 3.6 <=9.9 mg/L 12/23/2024 6:52 PM EST [facility] Blood Structure of peripheral vein / Unknown Venipuncture / Unknown 12/23/2024 5:08 PM EST 12/23/2024 6:05 PM EST [facility] [employer] LAB BLOOD ORDERABLES Final Res ult [facility] [address] [place] [address], * MICHELE Specific Antibody w/Reflex to [place] (12/23/2024 5:08 PM EST) Pathologist [facility] MICHELE Screen, Immunoassay NEGATIVE NEGATIVE 12/24/2024 8:59 PM EST [facility] Comment: A negative MICHELE Multiplex indicates the absence of detectable antibodies to component analytes consisting of double stranded DNA (dsDNA), chromatin, ribonucleoprotein (SITE IDENTIFICATION SPECIALIST), Freire/SITE IDENTIFICATION SPECIALIST (Sm/SITE IDENTIFICATION SPECIALIST), Freire (Sm), SS-A, SS-B, Alee-1, centromere B, Scl-70 and ribosomal P. A negative result should be interpreted in the context of the clinical and laboratory findings and does not rule out autoimmune disease characterized by other autoantibody specificities such as rheumatoid arthritis, autoimmune hepatitis, primary biliary cirrhosis, autoimmune thyroiditis, Adelanto's disease, pernicious anemia, autoimmune neuropathies, vasculitis, celiac disease, and bullous disease. For additional information, please refer to http://education.[employer]/faq/CEK015 (This link is being provided for informational/ educational purposes only.) Blood Structure of peripheral vein / Unknown Venipuncture / Unknown 12/23/2024 5:08 PM EST 12/23/2024 6:05 PM EST Narrative [facility] - 12/24/2024 8:59 PM EST [facility] Received Date: [facility] LAB BLOOD ORDERABLES Final Res ult [facility] [address] [facility] [address]rd [address], [place] [address], [place] [phone] [facility] [address] [facility] [address] [facility], [place] [address], [place] [phone] * Uric Acid (12/23/2024 5:08 PM EST) Uric Acid 4.5 1.9 - 7.5 mg/dL 12/23/2024 6:52 PM EST [facility] Blood Structure of peripheral vein / Unknown Venipuncture / Unknown 12/23/2024 5:08 PM EST 12/23/2024 6:05 PM EST [facility] LAB BLOOD ORDERABLES Final Res ult [facility] [address] [place] [address], * T4, Free (12/23/2024 5:08 PM EST) Free T4 1.06 0.80 - 1.80 ng/dL 12/23/2024 7:33 PM EST [facility] Comment: Females: (ng/dL) First Trimester 0.95-1.58 ng/dL Second Trimester 0.76-1.24 ng/dL Third Trimester 0.70-1.25 ng/dL Dietary supplements containing biotin may interfere in assays and may skew analyte results to be falsely high. For patients receiving the recommended daily doses of biotin, draw samples at least 8 hours following the last biotin supplementation. For patients on joaquina-doses of biotin supplements, draw samples at least 72 hours following the last biotin supplementation. Effective 2024, Free T4 reference range (>=18 years old) is 0.8 - 1.8 ng/dL, replacing the previous range of 0.93 - 1.70 ng/dL. Blood Structure of peripheral vein / Unknown Venipuncture / Unknown 12/23/2024 5:08 PM EST 12/23/2024 6:05 PM EST [facility] LAB BLOOD ORDERABLES Final Res ult Performing Organization Address City/[facility]/ZIP Co de Phone Number [facility] [address] [place] [address], [place] * Magnesium (12/23/2024 5:08 PM EST) MG 2.2 1.6 - 2.4 mg/dL 12/23/2024 6:52 PM EST [facility] Blood Structure of peripheral vein / Unknown Venipuncture / Unknown 12/23/2024 5:08 PM EST 12/23/2024 6:05 PM EST [facility] LAB BLOOD ORDERABLES Final Res ult Performing Organization Address City/[facility]/ZIP Co de Phone Number [facility] [address] [place] [address], [place] * Ferritin (12/23/2024 5:08 PM EST) Ferritin 40.6 11.0 - 306.0 ng/mL 12/23/2024 6:52 PM EST [facility] Blood Structure of peripheral vein / Unknown Venipuncture / Unknown 12/23/2024 5:08 PM EST 12/23/2024 6:05 PM EST [facility] LAB BLOOD ORDERABLES Final Res ult Performing Organization Address City/[facility]/ZIP Co de Phone Number [facility] [address] [place] [phone], [place] * Vitamin B12 (12/23/2024 5:08 PM EST) Vitamin B12 1,123 232 - 1,245 pg/mL 12/23/2024 6:52 PM EST [facility] Blood Structure of peripheral vein / Unknown Venipuncture / Unknown 12/23/2024 5:08 PM EST 12/23/2024 6:05 PM EST Shantal Fisher [employer] LAB BLOOD ORDERABLES Final Res ult Performing Organization Address [facility]/ZIP Co de Phone Number [facility] [address] [place] [phone], [place] * (ABNORMAL) CK (12/23/2024 5:08 PM EST) CK 450(H) 38 - 206 U/L 12/23/2024 6:52 PM EST [facility] Blood Structure of peripheral vein / Unknown Venipuncture / Unknown 12/23/2024 5:08 PM EST 12/23/2024 6:05 PM EST Shantal Fisher [employer] LAB BLOOD ORDERABLES Final Res ult Performing Organization Address City/[facility]/ZIP Co de Phone Number [facility] [address] [place] [address], [place] * (ABNORMAL) Comprehensive Metabolic Panel (12/23/2024 5:08 PM EST) NA 140 135 - 145 mmol/L 12/23/2024 6:52 PM EST [facility] K 3.9 3.5 - 5.3 mmol/L 12/23/2024 6:52 PM EST [facility] Cl 104 97 - 110 mmol/L 12/23/2024 6:52 PM [facility] CO2 26 22 - 32 mmol/L 12/23/2024 6:52 PM [facility] Anion Gap 10 5 - 15 12/23/2024 6:52 PM [facility] Glucose 93 65 - 99 mg/dL 12/23/2024 6:52 PM [facility] Creatinine 0.69 0.50 - 1.20 mg/dL 12/23/2024 6:52 PM [facility] Calcium 10.2 8.6 - 10.5 mg/dL 12/23/2024 6:52 PM [facility] Total Protein 7.5 6.0 - 8.0 g/dL 12/23/2024 6:52 PM [facility] Albumin 4.1 3.5 - 5.2 g/dL 12/23/2024 6:52 PM [facility] Bilirubin, Total 0.2 0.2 - 1.2 mg/dL 12/23/2024 6:52 PM [facility] Alkaline Phosphatase 81 35 - 129 U/L 12/23/2024 6:52 PM [facility] AST 28 10 - 40 U/L 12/23/2024 6:52 PM [facility] ALT 38 10 - 40 U/L 12/23/2024 6:52 PM [facility] BUN 8 7 - 23 mg/dL 12/23/2024 6:52 PM [facility] eGFR >90 >=60 mL/min/1. 73m2 12/23/2024 6:52 PM [facility] Comment:The estimated glomer ular filtration rate (eGFR) is calculated using a new formula developed by the NKF-ASN task force to eliminate race-based correction factors. The new formula uses serum/plasma creatinine, age, and gender to determine eGFR. A value below 60mls/min might indicate kidney disease and will be flagged. For additional information, see Shavon et al, Am J Kidney Dis. 2021;79(2):268- 288, A Unifying Approach for GFR estimation: Recommendations of the NKF-ASN Task Force on Reassessing the Inclusion of Race in Diagnosing Kidney Disease . Globulin, Total 3.4 2.1 - 4.2 g/dL 12/23/2024 6:52 PM EST [facility] A/G Ratio 1.2(L) 1.5 - 3.0 12/23/2024 6:52 PM EST [facility] Blood Structure of peripheral vein / Unknown Venipuncture / Unknown 12/23/2024 5:08 PM EST 12/23/2024 6:05 PM EST us Shantal Fisher MET[employer] LAB BLOOD ORDERABLES Final Res ult [facility] [address] [place] [address], [place] * XR Hips Bilateral 5+ vw W Pelvis (12/23/2024 4:52 PM EST) Anatomical Region Laterality Modality Body, Pelvis, Hip Bilateral Computed Radio graphy 12/23/2024 5:04 PM EST Impressions 12/23/2024 5:12 PM EST FINDINGS/IMPRESSION: Bilateral hands: No osseous erosions to suggest inflammatory arthropathy. No acute fracture or dislocation. Joint spaces maintained. Soft tissues unremarkable. Pelvis and hips: No radiographic findings of acute fracture or dislocation. Hip joints are congruent. Mild degenerative changes lower lumbar spine and pubic symphysis. Sacroiliac joints symmetric. Sacrum partly obscured. Soft tissues unremarkable. Bilateral knee: No radiographic findings of acute fracture or dislocation. Tricompartmental knee osteoarthritis, most pronounced in the medial compartments, left more than right. No substantial knee joint effusions. Soft tissues unremarkable. Bilateral feet: No radiographic findings of acute fracture or dislocation. Mild to moderate hallux valgus. No osseous erosions. Small dorsal and plantar calcaneal spurs. Mild soft tissue swelling. If this radiology report contains a blank impression section, it is an incomplete radiology report. Please contact the interpreting radiologist or applicable radiology division as soon as possible to obtain the completed interpretation. Workstation ID: [id number] Narrative 12/23/2024 5:12 PM EST COMPARISON: None. Resulting Agency Comment [id number] Procedure Note Isaiah Reed MD - 12/23/2024 COMPARISON: None. IMPRESSION: FINDINGS/IMPRESSION: Bilateral hands: No osseous erosions to suggest inflammatory arthropathy.No acute fracture or dislocation. Joint spaces maintained. Soft tissuesunremarkable. Pelvis and hips: No radiographic findings of acute fracture ordislocation. Hip joints are congruent. Mild degenerative changes lowerlumbar spine and pubic symphysis. Sacroiliac joints symmetric. Sacrumpartly obscured. Soft tissues unremarkable. Bilateral knee: No radiographic findings of acute fracture or dislocation.Tricompartmental knee osteoarthritis, most pronounced in the medialcompartments, left more than right. No substantial knee joint effusions.Soft tissues unremarkable. Bilateral feet: No radiographic findings of acute fracture or dislocation.Mild to moderate hallux valgus. No osseous erosions. Small dorsal andplantar calcaneal spurs. Mild soft tissue swelling. If this radiology report contains a blank impression section, it is anincomplete radiology report. Please contact the interpreting radiologistor applicable radiology division as soon as possible to obtain thecompleted interpretation. Workstation ID: [id number] Shantal Fisher NP IMG XR PROCEDURES Final Result * XR Foot 3+ vw Right (12/23/2024 4:52 PM EST) Anatomical Region Laterality Modality Lower Extremities, Foot Right Computed Radiography 12/23/2024 5:04 PM EST Impressions 12/23/2024 5:12 PM EST FINDINGS/IMPRESSION: Bilateral hands: No osseous erosions to suggest inflammatory arthropathy. No acute fracture or dislocation. Joint spaces maintained. Soft tissues unremarkable. Pelvis and hips: No radiographic findings of acute fracture or dislocation. Hip joints are congruent. Mild degenerative changes lower lumbar spine and pubic symphysis. Sacroiliac joints symmetric. Sacrum partly obscured. Soft tissues unremarkable. Bilateral knee: No radiographic findings of acute fracture or dislocation. Tricompartmental knee osteoarthritis, most pronounced in the medial compartments, left more than right. No substantial knee joint effusions. Soft tissues unremarkable. Bilateral feet: No radiographic findings of acute fracture or dislocation. Mild to moderate hallux valgus. No osseous erosions. Small dorsal and plantar calcaneal spurs. Mild soft tissue swelling. If this radiology report contains a blank impression section, it is an incomplete radiology report. Please contact the interpreting radiologist or applicable radiology division as soon as possible to obtain the completed interpretation. Workstation ID: [id number] Narrative 12/23/2024 5:12 PM EST COMPARISON: None. Resulting Agency Comment [id number] Procedure Note Isaiah Reed MD - 12/23/2024 COMPARISON: None. IMPRESSION: FINDINGS/IMPRESSION: Bilateral hands: No osseous erosions to suggest inflammatory arthropathy.No acute fracture or dislocation. Joint spaces maintained. Soft tissuesunremarkable. Pelvis and hips: No radiographic findings of acute fracture ordislocation. Hip joints are congruent. Mild degenerative changes lowerlumbar spine and pubic symphysis. Sacroiliac joints symmetric. Sacrumpartly obscured. Soft tissues unremarkable. Bilateral knee: No radiographic findings of acute fracture or dislocation.Tricompartmental knee osteoarthritis, most pronounced in the medialcompartments, left more than right. No substantial knee joint effusions.Soft tissues unremarkable. Bilateral feet: No radiographic findings of acute fracture or dislocation.Mild to moderate hallux valgus. No osseous erosions. Small dorsal andplantar calcaneal spurs. Mild soft tissue swelling. If this radiology report contains a blank impression section, it is anincomplete radiology report. Please contact the interpreting radiologistor applicable radiology division as soon as possible to obtain thecompleted interpretation. Workstation ID: [id number] Shantal Fisher NP IMG XR PROCEDURES Final Result * XR Foot 3+ vw Left (12/23/2024 4:52 PM EST) Anatomical Region Laterality Modality Lower Extremities, Foot Left Computed Radiography 12/23/2024 5:04 PM EST Impressions 12/23/2024 5:12 PM EST FINDINGS/IMPRESSION: Bilateral hands: No osseous erosions to suggest inflammatory arthropathy. No acute fracture or dislocation. Joint spaces maintained. Soft tissues unremarkable. Pelvis and hips: No radiographic findings of acute fracture or dislocation. Hip joints are congruent. Mild degenerative changes lower lumbar spine and pubic symphysis. Sacroiliac joints symmetric. Sacrum partly obscured. Soft tissues unremarkable. Bilateral knee: No radiographic findings of acute fracture or dislocation. Tricompartmental knee osteoarthritis, most pronounced in the medial compartments, left more than right. No substantial knee joint effusions. Soft tissues unremarkable. Bilateral feet: No radiographic findings of acute fracture or dislocation. Mild to moderate hallux valgus. No osseous erosions. Small dorsal and plantar calcaneal spurs. Mild soft tissue swelling. If this radiology report contains a blank impression section, it is an incomplete radiology report. Please contact the interpreting radiologist or applicable radiology division as soon as possible to obtain the completed interpretation. Workstation ID: [id number] Narrative 12/23/2024 5:12 PM EST COMPARISON: None. Resulting Agency Comment [id number] Procedure Note Isaiah Reed MD - 12/23/2024 COMPARISON: None. IMPRESSION: FINDINGS/IMPRESSION: Bilateral hands: No osseous erosions to suggest inflammatory arthropathy.No acute fracture or dislocation. Joint spaces maintained. Soft tissuesunremarkable. Pelvis and hips: No radiographic findings of acute fracture ordislocation. Hip joints are congruent. Mild degenerative changes lowerlumbar spine and pubic symphysis. Sacroiliac joints symmetric. Sacrumpartly obscured. Soft tissues unremarkable. Bilateral knee: No radiographic findings of acute fracture or dislocation.Tricompartmental knee osteoarthritis, most pronounced in the medialcompartments, left more than right. No substantial knee joint effusions.Soft tissues unremarkable. Bilateral feet: No radiographic findings of acute fracture or dislocation.Mild to moderate hallux valgus. No osseous erosions. Small dorsal andplantar calcaneal spurs. Mild soft tissue swelling. If this radiology report contains a blank impression section, it is anincomplete radiology report. Please contact the interpreting radiologistor applicable radiology division as soon as possible to obtain thecompleted interpretation. Workstation ID: [id number] Shantal Fisher [employer] IMG XR PROCEDURES Final Result * XR Knee AP/PA Bilateral Standing (12/23/2024 4:52 PM EST) Anatomical Region Laterality Modality Lower Extremities, Knee Bilateral Computed Radiography 12/23/2024 5:04 PM EST Impressions 12/23/2024 5:12 PM EST FINDINGS/IMPRESSION: Bilateral hands: No osseous erosions to suggest inflammatory arthropathy. No acute fracture or dislocation. Joint spaces maintained. Soft tissues unremarkable. Pelvis and hips: No radiographic findings of acute fracture or dislocation. Hip joints are congruent. Mild degenerative changes lower lumbar spine and pubic symphysis. Sacroiliac joints symmetric. Sacrum partly obscured. Soft tissues unremarkable. Bilateral knee: No radiographic findings of acute fracture or dislocation. Tricompartmental knee osteoarthritis, most pronounced in the medial compartments, left more than right. No substantial knee joint effusions. Soft tissues unremarkable. Bilateral feet: No radiographic findings of acute fracture or dislocation. Mild to moderate hallux valgus. No osseous erosions. Small dorsal and plantar calcaneal spurs. Mild soft tissue swelling. If this radiology report contains a blank impression section, it is an incomplete radiology report. Please contact the interpreting radiologist or applicable radiology division as soon as possible to obtain the completed interpretation. Workstation ID: [id number] Narrative 12/23/2024 5:12 PM EST COMPARISON: None. Resulting Agency Comment [id number] Procedure Note Isaiah Reed MD - 12/23/2024 COMPARISON: None. IMPRESSION: FINDINGS/IMPRESSION: Bilateral hands: No osseous erosions to suggest inflammatory arthropathy.No acute fracture or dislocation. Joint spaces maintained. Soft tissuesunremarkable. Pelvis and hips: No radiographic findings of acute fracture ordislocation. Hip joints are congruent. Mild degenerative changes lowerlumbar spine and pubic symphysis. Sacroiliac joints symmetric. Sacrumpartly obscured. Soft tissues unremarkable. Bilateral knee: No radiographic findings of acute fracture or dislocation.Tricompartmental knee osteoarthritis, most pronounced in the medialcompartments, left more than right. No substantial knee joint effusions.Soft tissues unremarkable. Bilateral feet: No radiographic findings of acute fracture or dislocation.Mild to moderate hallux valgus. No osseous erosions. Small dorsal andplantar calcaneal spurs. Mild soft tissue swelling. If this radiology report contains a blank impression section, it is anincomplete radiology report. Please contact the interpreting radiologistor applicable radiology division as soon as possible to obtain thecompleted interpretation. Workstation ID: [id number] Shantal Fisher METAL DEALER IMG XR PROCEDURES Final Result * X-Ray Knee Right 4+ Views (12/23/2024 4:52 PM EST) Anatomical Region Laterality Modality Lower Extremities, Knee Right Computed Radiography 12/23/2024 5:04 PM EST Impressions 12/23/2024 5:12 PM EST FINDINGS/IMPRESSION: Bilateral hands: No osseous erosions to suggest inflammatory arthropathy. No acute fracture or dislocation. Joint spaces maintained. Soft tissues unremarkable. Pelvis and hips: No radiographic findings of acute fracture or dislocation. Hip joints are congruent. Mild degenerative changes lower lumbar spine and pubic symphysis. Sacroiliac joints symmetric. Sacrum partly obscured. Soft tissues unremarkable. Bilateral knee: No radiographic findings of acute fracture or dislocation. Tricompartmental knee osteoarthritis, most pronounced in the medial compartments, left more than right. No substantial knee joint effusions. Soft tissues unremarkable. Bilateral feet: No radiographic findings of acute fracture or dislocation. Mild to moderate hallux valgus. No osseous erosions. Small dorsal and plantar calcaneal spurs. Mild soft tissue swelling. If this radiology report contains a blank impression section, it is an incomplete radiology report. Please contact the interpreting radiologist or applicable radiology division as soon as possible to obtain the completed interpretation. Workstation ID: [id number] Narrative 12/23/2024 5:12 PM EST COMPARISON: None. Resulting Agency Comment [id number] Procedure Note Isaiah Reed MD - 12/23/2024 COMPARISON: None. IMPRESSION: FINDINGS/IMPRESSION: Bilateral hands: No osseous erosions to suggest inflammatory arthropathy.No acute fracture or dislocation. Joint spaces maintained. Soft tissuesunremarkable. Pelvis and hips: No radiographic findings of acute fracture ordislocation. Hip joints are congruent. Mild degenerative changes lowerlumbar spine and pubic symphysis. Sacroiliac joints symmetric. Sacrumpartly obscured. Soft tissues unremarkable. Bilateral knee: No radiographic findings of acute fracture or dislocation.Tricompartmental knee osteoarthritis, most pronounced in the medialcompartments, left more than right. No substantial knee joint effusions.Soft tissues unremarkable. Bilateral feet: No radiographic findings of acute fracture or dislocation.Mild to moderate hallux valgus. No osseous erosions. Small dorsal andplantar calcaneal spurs. Mild soft tissue swelling. If this radiology report contains a blank impression section, it is anincomplete radiology report. Please contact the interpreting radiologistor applicable radiology division as soon as possible to obtain thecompleted interpretation. Workstation ID: [id number] Shantal Fisher NP IMG XR PROCEDURES Final Result * X-Ray Knee Left 4+ Views (12/23/2024 4:52 PM EST) Anatomical Region Laterality Modality Lower Extremities, Knee Left Computed Radiography 12/23/2024 5:04 PM EST Impressions 12/23/2024 5:12 PM EST FINDINGS/IMPRESSION: Bilateral hands: No osseous erosions to suggest inflammatory arthropathy. No acute fracture or dislocation. Joint spaces maintained. Soft tissues unremarkable. Pelvis and hips: No radiographic findings of acute fracture or dislocation. Hip joints are congruent. Mild degenerative changes lower lumbar spine and pubic symphysis. Sacroiliac joints symmetric. Sacrum partly obscured. Soft tissues unremarkable. Bilateral knee: No radiographic findings of acute fracture or dislocation. Tricompartmental knee osteoarthritis, most pronounced in the medial compartments, left more than right. No substantial knee joint effusions. Soft tissues unremarkable. Bilateral feet: No radiographic findings of acute fracture or dislocation. Mild to moderate hallux valgus. No osseous erosions. Small dorsal and plantar calcaneal spurs. Mild soft tissue swelling. If this radiology report contains a blank impression section, it is an incomplete radiology report. Please contact the interpreting radiologist or applicable radiology division as soon as possible to obtain the completed interpretation. Workstation ID: [id number] Narrative 12/23/2024 5:12 PM EST COMPARISON: None. Resulting Agency Comment [id number] Procedure Note Isaiah Reed MD - 12/23/2024 COMPARISON: None. IMPRESSION: FINDINGS/IMPRESSION: Bilateral hands: No osseous erosions to suggest inflammatory arthropathy.No acute fracture or dislocation. Joint spaces maintained. Soft tissuesunremarkable. Pelvis and hips: No radiographic findings of acute fracture ordislocation. Hip joints are congruent. Mild degenerative changes lowerlumbar spine and pubic symphysis. Sacroiliac joints symmetric. Sacrumpartly obscured. Soft tissues unremarkable. Bilateral knee: No radiographic findings of acute fracture or dislocation.Tricompartmental knee osteoarthritis, most pronounced in the medialcompartments, left more than right. No substantial knee joint effusions.Soft tissues unremarkable. Bilateral feet: No radiographic findings of acute fracture or dislocation.Mild to moderate hallux valgus. No osseous erosions. Small dorsal andplantar calcaneal spurs. Mild soft tissue swelling. If this radiology report contains a blank impression section, it is anincomplete radiology report. Please contact the interpreting radiologistor applicable radiology division as soon as possible to obtain thecompleted interpretation. Workstation ID: [id number] Shantal Fisher NP IMG XR PROCEDURES Final Result * XR Hand 3+ vw Right (12/23/2024 4:52 PM EST) Anatomical Region Laterality Modality Upper Extremities, Hand Right Computed Radiography 12/23/2024 5:04 PM EST Impressions 12/23/2024 5:12 PM EST FINDINGS/IMPRESSION: Bilateral hands: No osseous erosions to suggest inflammatory arthropathy. No acute fracture or dislocation. Joint spaces maintained. Soft tissues unremarkable. Pelvis and hips: No radiographic findings of acute fracture or dislocation. Hip joints are congruent. Mild degenerative changes lower lumbar spine and pubic symphysis. Sacroiliac joints symmetric. Sacrum partly obscured. Soft tissues unremarkable. Bilateral knee: No radiographic findings of acute fracture or dislocation. Tricompartmental knee osteoarthritis, most pronounced in the medial compartments, left more than right. No substantial knee joint effusions. Soft tissues unremarkable. Bilateral feet: No radiographic findings of acute fracture or dislocation. Mild to moderate hallux valgus. No osseous erosions. Small dorsal and plantar calcaneal spurs. Mild soft tissue swelling. If this radiology report contains a blank impression section, it is an incomplete radiology report. Please contact the interpreting radiologist or applicable radiology division as soon as possible to obtain the completed interpretation. Workstation ID: [id number] Narrative 12/23/2024 5:12 PM EST COMPARISON: None. Resulting Agency Comment [id number] Procedure Note Isaiah Reed MD - 12/23/2024 COMPARISON: None. IMPRESSION: FINDINGS/IMPRESSION: Bilateral hands: No osseous erosions to suggest inflammatory arthropathy.No acute fracture or dislocation. Joint spaces maintained. Soft tissuesunremarkable. Pelvis and hips: No radiographic findings of acute fracture ordislocation. Hip joints are congruent. Mild degenerative changes lowerlumbar spine and pubic symphysis. Sacroiliac joints symmetric. Sacrumpartly obscured. Soft tissues unremarkable. Bilateral knee: No radiographic findings of acute fracture or dislocation.Tricompartmental knee osteoarthritis, most pronounced in the medialcompartments, left more than right. No substantial knee joint effusions.Soft tissues unremarkable. Bilateral feet: No radiographic findings of acute fracture or dislocation.Mild to moderate hallux valgus. No osseous erosions. Small dorsal andplantar calcaneal spurs. Mild soft tissue swelling. If this radiology report contains a blank impression section, it is anincomplete radiology report. Please contact the interpreting radiologistor applicable radiology division as soon as possible to obtain thecompleted interpretation. Workstation ID: [id number] Shantal Fisher NP IMG XR PROCEDURES Final Result * XR Hand 3+ vw Left (12/23/2024 4:52 PM EST) Anatomical Region Laterality Modality Upper Extremities, Hand Left Computed Radiography 12/23/2024 5:04 PM EST Impressions 12/23/2024 5:12 PM EST FINDINGS/IMPRESSION: Bilateral hands: No osseous erosions to suggest inflammatory arthropathy. No acute fracture or dislocation. Joint spaces maintained. Soft tissues unremarkable. Pelvis and hips: No radiographic findings of acute fracture or dislocation. Hip joints are congruent. Mild degenerative changes lower lumbar spine and pubic symphysis. Sacroiliac joints symmetric. Sacrum partly obscured. Soft tissues unremarkable. Bilateral knee: No radiographic findings of acute fracture or dislocation. Tricompartmental knee osteoarthritis, most pronounced in the medial compartments, left more than right. No substantial knee joint effusions. Soft tissues unremarkable. Bilateral feet: No radiographic findings of acute fracture or dislocation. Mild to moderate hallux valgus. No osseous erosions. Small dorsal and plantar calcaneal spurs. Mild soft tissue swelling. If this radiology report contains a blank impression section, it is an incomplete radiology report. Please contact the interpreting radiologist or applicable radiology division as soon as possible to obtain the completed interpretation. Workstation ID: [id number] Narrative 12/23/2024 5:12 PM EST COMPARISON: None. Resulting Agency Comment [id number] Procedure Note Isaiah Reed MD - 12/23/2024 COMPARISON: None. IMPRESSION: FINDINGS/IMPRESSION: Bilateral hands: No osseous erosions to suggest inflammatory arthropathy.No acute fracture or dislocation. Joint spaces maintained. Soft tissuesunremarkable. Pelvis and hips: No radiographic findings of acute fracture ordislocation. Hip joints are congruent. Mild degenerative changes lowerlumbar spine and pubic symphysis. Sacroiliac joints symmetric. Sacrumpartly obscured. Soft tissues unremarkable. Bilateral knee: No radiographic findings of acute fracture or dislocation.Tricompartmental knee osteoarthritis, most pronounced in the medialcompartments, left more than right. No substantial knee joint effusions.Soft tissues unremarkable. Bilateral feet: No radiographic findings of acute fracture or dislocation.Mild to moderate hallux valgus. No osseous erosions. Small dorsal andplantar calcaneal spurs. Mild soft tissue swelling. If this radiology report contains a blank impression section, it is anincomplete radiology report. Please contact the interpreting radiologistor applicable radiology division as soon as possible to obtain thecompleted interpretation. Workstation ID: [id number] Shantal Phillip METAL DEALER IMG XR PROCEDURES Final Result * XR Chest 2 vw. Standard (12/23/2024 4:52 PM EST) Anatomical Region Laterality Modality Body Computed Radiogr aphy 12/24/2024 2:23 PM EST Impressions 12/24/2024 2:23 PM EST Moderate cardiomegaly with slight aortic ectasia. Otherwise negative. Lungs and pleural spaces clear. Minor DJD in the mid dorsal spine. If this radiology report contains a blank impression section, it is an incomplete radiology report. Please contact the interpreting radiologist or applicable radiology division as soon as possible to obtain the completed interpretation. Workstation ID: [id number] Narrative 12/24/2024 2:23 PM EST COMPARISON: None FINDINGS AND Resulting Agency Comment [id number] Procedure Note Justin Zapata MD - 12/24/2024 COMPARISON: None FINDINGS AND IMPRESSION: Moderate cardiomegaly with slight aortic ectasia. Otherwise negative.Lungs and pleural spaces clear. Minor DJD in the mid dorsal spine. If this radiology report contains a blank impression section, it is anincomplete radiology report. Please contact the interpreting radiologistor applicable radiology division as soon as possible to obtain thecompleted interpretation. Workstation ID: [id number] Shantal Phillip METAL DEAL[employer] IMG XR PROCEDURES Final Result from Last 3 Months Insurance [employer] [facility] HMO [employer] PPO/EPO/IND Care Teams Folder Seamer Relationship Specialty Start Date End Date Victor Hugo Zuniga [address] [place] [address] PCP - General Internal Medicine 09/30/24
--- OUTSIDE RECORDS SUMMARY | 2025-01-26 09:39 | XMS_ITS | Patient Health Record ---
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 Name Role Phone REBEKAH SUTHERLANDTHOMPSON Primary Care Provider Marietee Daniele Unavailable [phone] Allergies Allergen (clinical drug ingredient) Drug/Non Drug Allergy documented on EMR Reaction Allergy Type Onset Date Status Marychuy Unknown Drug Allergy Active sulfamethoxazole / trimethoprim Bactrim Unknown Drug Allergy Active Reason For Referral No Information Medications Medication SIG (Take, Route, Frequency, Duration) Notes Start Date End Date Status Vitamin D3 1000 UNIT 1 tablet Orally Onc e a day; Duration: 30 day(s) Active Probiotic - as directed Orally Active Meloxicam 15 MG 1 tablet Orally Once a day; Duration: 30 day(s) Active Metoprolol Succinate ER 25 MG 1/2 tablet Orally Once a day; Duration: 30 day(s) Active CoQ10 100 MG 1 capsule with a ilsa l Orally Once a day Active Topamax 25 MG as directed Orally b id; Duration: 30 days 03/24/2018 Active traMADol HCl 50 MG 1 tablet as needed O rally PRN Active Centrum Silver - as directed Orally Active Aspirin Adult Low Strength 81 MG 1 tablet Orally Once a day; Duration: 30 day(s) Active Omeprazole 20 MG 1 capsule Orally Onc e a day; Duration: 30 day(s) Active Social History Tobacco Use: Social History Observation Description Date Details (start date - stop date) Never Smoker NA - NA Tobacco Use/Smoking Question Answer Notes Are you a nonsmoker Alcohol Screen (Audit-C) Question Answer Notes Did you have a drink containing alcohol in the p ast year? No Points 0 Interpretation Negative Problems Problem Type SNOMED Code ICD Code Onset Dates Problem Status W/U Status Risk Notes Problem Gastro-esophagea l reflux disease without esophagitis (495901503) Gastro-esophage al reflux disease without esophagitis (K21.9) Active confirmed Problem Low back pain (821372005) Low back pain (M54.5) Active confirmed Problem Tachycardia (5660511) Tachycardia, unspecified (R00.0) Active confirmed Problem Snoring (17307650) Snoring (R06.83) Active confirmed Problem Body mass index 35.00 to 39.99 (550126246245530 ) Body mass index (BMI) 36.0-36.9, adult (Z68.36) Active confirmed Problem Body mass index 35.00 to 39.99 (199984391622042 ) Body mass index (BMI) 37.0-37.9, adult (Z68.37) Active confirmed Problem Body mass index 35.00 to 39.99 (489762033799965 ) Body mass index (BMI) 38.0-38.9, adult (Z68.38) Active confirmed Encounters Encounter Location Date Provider Diagnosis [facility] [address] [address] 12/15/2024 [place] Plan Of Treatment No Information Insurance Providers Payer Name Payer Address Payer Phone Subscriber Number Group Number Insured Name Patient Relationship to Insured Coverage Start Date Coverage End Date [place] [address] [place] [phone] [id number] Sasha Hess Self - patient is the insured 5 [employer] [address] [place] [address] [phone] [id number] Sasha Hess Self - patient is the insured 5 Medical (General) History Medical History History ICD Code Rheumatoid arthritis Lumbar radiculopathy and status post low er back surgery Sinus tachycardia and see Dr Flores Acid reflux snoring Surgical History Surgery Date(Month/Year) tonsillectomy back surgery bilateral lumpectomy lasix vein removal
== END 2025-01-26 09:23 | disposition home or self-care (01) ==
LOC: HO.HPS 08:50
PROVIDERS: PCP Internal Medicine; Visit Provider Hospitalist
DX: R06.09 Other forms of dyspnea (principal); G47.33 Obstructive sleep apnea (adult) (pediatric); J45.40 Moderate persistent asthma, uncomplicated; R91.8 Other nonspecific abnormal finding of lung field
CPT/HCPCS: 99214